=== PATIENT | male | born 1955 | race Caucasian/White ===

== ENCOUNTER 2017-12-14 06:13 | Inpatient (IN) ==
[~2017-12-14 06:13] MED LIST: ceFAZolin 1,000 MG, Sodium Chloride IRRigation 1,000 ML IR ONE
[2017-12-14] MEDS ORDERED: CeFAZolin Syr 2,000MG/20 ML 2,000 MG/20 ML SYRINGE IVPB ONE (06:37)
[2017-12-14] MEDS ORDERED: Albuterol 2.5 MG/3 ML NEBULIZER IH ONE (06:39)
[2017-12-14] MEDS ORDERED: Albuterol 2.5 MG/3 ML NEBULIZER ONE (06:43)
[2017-12-14] MEDS ORDERED: Ringers Solution, Lactated 1,000 ML IVC SCH (06:45)
[2017-12-14] MEDS ORDERED: Plasma-Lyte A (PH 7.4) 1,000 ML IVC SCH (06:45)
[2017-12-14] MEDS ORDERED: Insulin Human Regular 20 UNIT in 0.9 % Sodium Chloride 10 ML IV ONE (07:02)
[2017-12-14] MEDS ORDERED: Lidocaine -MPF 1% 2 ML VIAL ONE ×2 (07:02→07:20)
[2017-12-14] MEDS ORDERED: Acetaminophen IV 1,000 MG/100 ML INFUS..BTL IVPB ONE (07:05)
[2017-12-14] MEDS ORDERED: Famotidine 20 MG/2 ML VIAL IVP ONE (07:05)
[2017-12-14] MEDS ORDERED: *HR* FentaNYL (PF) 100 MCG/2 ML VIAL ONE ×2 (07:12→11:29)
[2017-12-14] MEDS ORDERED: *HR* Midazolam HCl 2 MG/2 ML VIAL ONE (07:12)
[2017-12-14] MEDS ORDERED: *HR* Propofol 200 MG/20 ML VIAL IVP ONE ×2 (07:12→11:28)
[2017-12-14] MEDS ORDERED: Heparin 1,000 UNITS/500 mL 1,000 ML ONE (07:15)
--- NOTE | 2017-12-14 07:26 | History & Physical Report ---
Date of Encounter: 12/14/17 Time of Encounter: 07:25 24 Hour HP Update - Instructions Instructions: If the History and Physical is less than 30 days old and was completed prior to A.M. admission and or procedure and has NOT been updated on calendar day of procedure please complete this update prior to performing procedure. - Update Patient reports changes in Medical Condition: No Changes in examination, assessment, or condition: No Changes in Medication: No Preop tests/diagnostics Reviewed: Yes Surgery Remains Indicated: Yes Consent for Planned Operative Procedure(s) Verified: Yes - Pre-Operative Checklist Preoperative Checklist Indicated: Yes Prophylactic Antibiotic Ordered: Yes Home Medications Include Beta Cynthia: Yes Beta Cynthia Taken Today (Day of Surgery): Yes Beta Cynthia Taken Yesterday (Day Prior to Surgery): Yes Is VTE Prophylaxis Indicated?: Yes
--- NOTE | 2017-12-14 07:29 | Anesthesia Evaluation PreOp ---
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: Denies Any Significant HX Other Medical History: Diabetes Type II (poorly controlled, accu check 328), GERD Anesthesia History: No Prior Anesthetic Complications Alcohol Use: none Drug use: none Medications and Allergies Isosorbide MONOnitrate (24 HR) [Imdur] 30 mg PO DAILY 05/26/15 [History] Lisinopril [Zestril] 20 mg PO DAILY 05/26/15 [History] Metformin HCl [Glucophage Xr] 750 mg PO BID 05/26/15 [History] Metoprolol [Lopressor] 25 mg PO BID 05/26/15 [History] Aspirin 81 mg PO DAILY #100 tab.chew 06/04/15 [Rx] Atorvastatin Calcium [Lipitor] 80 mg PO DAILY #60 tablet 06/04/15 [Rx] Cilostazol [Pletal] 100 mg PO BID #60 tablet 06/04/15 [Rx] Clopidogrel [Plavix] 75 mg PO DAILY #30 tablet 06/04/15 [Rx] HYDROcodone/Acet 5/325 mg [[place] 5-325 mg] 1 tab PO BID PRN 10/18/17 [History] Pantoprazole Sodium 40 mg PO DAILY 10/18/17 [History] Pentoxifylline [TRENtal] 400 mg PO BID 10/18/17 [History] Exenatide Microspheres [Bydureon Pen] 2 mg SQ TU 12/14/17 [History] Insulin Glargine,Hum.rec.anlog [Basaglar Kwikpen U-100] 20 - 25 unit SQ HS 12/14 [History] 3 Allergy/AdvReac Type Severity Reaction Status Date / Time No Known Allergies Allergy Verified 12/14/17 07:18 - Meds/Allergy Pre-op Review Medications Reviewed: Yes Allergies Reviewed: Yes Beta Blockers on Current Med List: Yes (Metoprolol today 0730) Anesthesia Results - Labs Laboratory Tests 11/24/17 11/24/17 11/24/17 10:16 10:16 10:16 Hgb 14.3 Hct 44.9 Plt Count 299 PT 10.5 INR 1.0 APTT 32.1 Sodium 134 L Potassium 4.0 BUN 14 Creatinine 0.71 - Imaging EKG: report reviewed (SR marked left axis deviation) Anesthesia Exam O2 Sat Height 1.85 m Height 1.85 m Height 1.85 m Weight 92.079 kg Weight 92.079 kg Weight 92.079 kg O2 Sat by Pulse Oximetry 98 O2 Sat by Pulse Oximetry 98 Vital Signs Temp Pulse Resp BP Pulse Ox 97.7 F 95 18 170/84 98 12/14/17 06:35 12/14/17 06:35 12/14/17 06:35 12/14/17 06:35 12/14/17 06:35 Height: 6'0 Weight: 203 lbs NPO (# of Hours): MN Pain Scale: 0 - HEENT Pupil (Motor): Pupils equal, EOMI Mallampati: III Teeth: Edentulous Oral Opening: Less than or equal to 3 - PROGRESS WORKER LOC: Oriented PROGRESS WORKER Motor: Normal RUE, Normal LUE, Normal RLE, Normal LLE, Normal Face PROGRESS WORKER Sensory: Normal: RUE, LUE, RLE, Face, Deficit: LLE (paresthesia) - Cardiac Rhythm: Regular Murmur: None JVD: No Carotid Bruit: No - Pulmonary Breath Sounds: bilateral Clear Respiratory Effort: Symmetrical Anesthesia Assess/Plan ASA Score: 3 Modified Apison Scale for Level of Consciousness: Cooperative, oriented, and tranquil Anesthetic Plan: General Monitoring Plan: Standard Monitors, A-Line Recovery Plan: PACU (Discussed GA, A-line, agrees to proceed)
[2017-12-14] MEDS ORDERED: *HR* Remifentanil 2 MG VIAL IVP ONE (07:39)
[2017-12-14] MEDS ORDERED: Lidocaine -MPF 2% 2 ML VIAL ONE ×2 (07:58→08:32)
[2017-12-14] MEDS ORDERED: Dexamethasone 4 MG/ML VIAL ONE (08:31)
[2017-12-14] MEDS ORDERED: Ondansetron 4 MG/2 ML VIAL ONE (08:31)
[2017-12-14] MEDS ORDERED: *HR* Phenylephrine 10 MG/ML VIAL ONE ×2 (08:33→12:12)
[2017-12-14] MEDS ORDERED: *HR* Promethazine 25 MG/ML VIAL IVP PRN (09:27)
[2017-12-14] MEDS ORDERED: *HR* OxyCODONE Immed Rel 5 MG TABLET PO PRN (09:27)
[2017-12-14] MEDS ORDERED: *HR* Labetalol 20 MG/4 ML SYRINGE IVP PRN (09:27)
[2017-12-14 09:35] LABS: ABG Base Excess 2 mEq/L (-2 to 3); ABG HCO3 28 mEq/L (21-27); ABG Oxygen Saturation 100 % (95-98); ABG PCO2 49 mmHg (35-45); ABG PH 7.36 pH Units (7.32-7.45); ABG PO2 184 mmHg (85-104); ABG TCO2 29 mEq/L (20-26)
[2017-12-14] MEDS ORDERED: *HR* Dextrose 50 % in Water (Syg) 50 ML SYRINGE ONE (10:03)
[2017-12-14] MEDS ORDERED: *HR* Heparin 5,000 UNIT/ML VIAL ONE ×2 (10:27→11:30)
[2017-12-14] MEDS ORDERED: *HR* Remifentanil 1 MG VIAL IVP ONE (10:48)
[2017-12-14] MEDS ORDERED: Neostigmine Methylsulfate 3 MG/3 ML SYRINGE ONE (12:39)
--- NOTE | 2017-12-14 12:55 | Operative Note ---
Date of procedure: 12/14/17 Pre-op diagnosis: PAD/claudication Post-op diagnosis: same Procedure: left femoral- above-knee popliteal bypass graft with reversed greater saphenous vein left common femoral artery endarterectomy with bovine pericardial patch angioplasty left above-knee popliteal endarterectomy with bovine pericardial patch angioplasty Complications: none Anesthesia: GETA Surgeon: Acosta Scott Co-Surgeon: Aleksey Martinez Was there an producer assistant present: No Estimated blood loss (cc): 100 Specimen: 0 Condition: stable Disposition: PACU Procedure in Detail: History Walker Crain is a 62-year-old white male who has known bilateral lower extremity vascular disease. He had undergone previous right lower extremity intervention that included iliac and popliteal and tibial artery angioplasties. He was identified as having significant left superficial femoral artery disease with occlusion. Contrast distally into the tibial system was inadequate. An attempt was made to perform an endovascular intervention but the right common femoral artery could not be successfully punctured and entered into the true lumen. Therefore the endovascular attempts were abandoned and the patient now comes to the operating room for direct revascularization of the right superficial femoral artery occlusion. Procedure After informed consent was obtained the patient was taken to the operating room. General endotracheal anesthesia was established under arterial line monitoring. The left lower extremity was sterilely prepped and draped. A timeout protocol was observed. A 2 team surgical approach was utilized for this procedure. This was done because of the need for complex intraoperative decision making as well as the need for simultaneous interventions. Incisions were made at the common femoral artery and at the above-knee popliteal artery. After the artery was dissected and controlled other incisions were made on the medial aspect of the thigh in order to expose and dissect the greater saphenous vein. The greater saphenous vein was found to be adequate in size and caliber. Therefore it was decided to proceed with a vein bypass graft. The vein was then harvested in a subsartorial tunnel was created. Heparin was administered no sub-5000 units intravenously. After 3 minutes later the vessels were clamped. As the vessels were identified as having significant intra-luminal plaque it was decided that endarterectomies with patch angioplasty would be necessary at both the proximal and distal location. Therefore a longitudinal arteriotomy was made at the common femoral artery and in the distal [id number] popliteal artery. A formal endarterectomy was performed bilaterally. The area was flushed with heparinized saline and then a bovine pericardial patch was fashioned. He was sewn with 6-0 Prolene at both locations. Then using an 11 blade knife the common femoral artery patch was opened. The vein was then anastomosed in an end to side fashion leaving the vein in a reverse configuration. After appropriate backbleeding and flushing the graft was then opened. Excellent pulsatile flow was achieved. The vein was then marked and the patient had the greater saphenous vein past through the tunnel into the [id number] popliteal location. An arteriotomy was then made over the patched above-knee popliteal artery. The End of the vein was anastomosed to the side of the popliteal artery. After appropriate backbleeding and flushing the clamps are removed and pulsatile flow was reestablished into the left calf. The patient tolerated this maneuver well. There were no periprocedural episodes of hypotension. Doppler signals were identified over the dorsalis pedis and posterior tibial artery at the ankle. The wounds were then irrigated and hemostasis achieved. The wound was then closed in layers using absorbable suture. Dry sterile dressings were applied. The patient was extubated in the operating room and taken to the recovery room in stable condition. There were no intraoperative complications. No specimens were submitted.
[2017-12-14] MEDS: MORPHINE SUL Oral CONC 10 MG/0.5 ML ORAL.SYG SL PRN ×2 (13:31→13:41)
[2017-12-14] MEDS ORDERED: *HR* Morphine 2 MG/ML SYRINGE IVP PRN (13:50)
[2017-12-14] MEDS ORDERED: Ondansetron 4 MG/2 ML VIAL IVP PRN (14:49)
[2017-12-14] MEDS ORDERED: *HR* HYDROcodone/Acet 5/325 mg TABLET PO PRN (14:49)
[2017-12-14] MEDS ORDERED: Naloxone 0.4 MG/ML INJ IVP PRN (14:49)
[2017-12-14] MEDS ORDERED: (Exenatide Microspheres [Bydureon Pen] 2 MG) SQ SCH (14:49)
--- NOTE | 2017-12-14 15:01 | Anesthesia Evaluation Post Op ---
Date of Encounter: 12/14/17 Time of Encounter: 15:00 - Vital Signs Vital Signs: Vital Signs/O2 Sat/Glucose, Most Current Temp Pulse Resp BP Pulse Ox 12/14/17 14:41 99.4 F 89 16 162/75 99 12/14/17 14:31 99.4 F 93 16 160/76 99 12/14/17 14:21 99.4 F 85 16 151/77 99 12/14/17 14:11 82 14 159/76 99 12/14/17 14:01 99.4 F 77 14 145/86 99 12/14/17 13:51 75 16 161/81 99 12/14/17 13:41 73 16 158/76 99 12/14/17 13:31 97.5 F L 68 16 156/74 99 12/14/17 13:21 73 16 196/99 100 12/14/17 13:11 85 18 183/97 100 12/14/17 13:01 97.6 F 66 20 176/85 100 - Lungs Lungs: Clear Ascult./Percussion - Airway Airway: Non-obstructed - Cardiovascular Regular Rate - Mental Status Mental Status: Alert & Oriented, Answers Appropriately - Pain Pain Scale: 1 - Nausea Vomiting Nausea Vomiting: Not Present - Hydration Hydration: Ice chips - Discharge PostOp Status: Transfer Patient to floor
[2017-12-14] MEDS ORDERED: *HR* HYDROmorphone (PF) 1 MG/ML SYRINGE IVP ONE (15:15)
[2017-12-14] MEDS ORDERED: ceFAZolin 2,000 MG in 0.9 % Sodium Chloride 100 ML IVPB SCH (16:00)
[2017-12-14] MEDS ORDERED: CeFAZolin Pre 2,000 MG/100 ML 2,000 MG/100 ML BAG IVPB SCH (16:00)
--- NOTE | 2017-12-14 16:42 | Operative Note ---
Date of procedure: 12/14/17 Pre-op diagnosis: Peripheral vascular disease with disabling claudication Post-op diagnosis: same Procedure: 1. Left femoral to above knee popliteal bypass with reversed left greater saphenous vein. 2. Left popliteal endarterctomy with bovine pericardial patch angioplasty. 3. Left femoral endarerectomy with bovine pericardial patch angioplasty. Complications: None Anesthesia: ESTELITA Surgeon: Aleksey Martinez Co-Surgeon: Acosta Scott Was there an pharmacy affairs assistant present: No Estimated blood loss (cc): 100 Specimen: none Condition: stable Disposition: PACU Procedure in Detail: Indications: The patient is a 62 year old male with a history of diabetes, hypertension, coronary artery disease tobacco abuse and peripheral vascular disease with disabling claudication. He was found to have a left superficial femoral artery occlusion. Surgery was recommended to reduce his symptoms. Procedure: The patient was identified in the preoperative area. The risks, benefits, and alternatives of the procedure were discussed. All questions were answered. The patient was taken to the operating room and placed in supine position on the operating room table. After the induction of general endotracheal anesthesia, he was cleaned and draped in normal sterile fashion. A two surgeon approach was utilized for this procedure in order to minimize anesthetic time and the risks for complications due to the patients comorbid conditions. In addition, a two surgeon approach was used for intraoperative decision making. An oblique incision was made over the left groin sharply. Hemostasis was obtained with electrocautery. Through a process of blunt, sharp, and electrocautery dissection, the left femoral vessels were dissected circumferentially and surrounded with vessel loops. A longitudinal incision was made on the left medial distal thigh sharply. Hemostasis was obtained with electrocautery. Through a process of blunt, sharp, and electrocautery dissection, the left above-knee popliteal artery was dissected proximally and distally and surrounded with vessel loops. Multiple skin incisions were made along the thigh between the two incisions along the saphenous vein. The saphenous vein was completely mobilized with blunt, sharp, and electrocautery dissection. The side branches were clamped, divided, tied off with 3-0 and 4-0 silk sutures. Distally, the vein was mobilized in the calf, clamped, divided, tied off with silk suture ligature and then further completely mobilized through the incisions. The vein was flushed and noted to be adequate in size and consistency for bypass. A tunnel was created between the femoral and popliteal artery incisions. The vein was reversed. Tension was applied to the femoral vessel loops. An arteriotomy was made in the common femoral artery. At this time, it was noted that nearly occlusive plaque extended from the common femoral artery through the deep femoral artery. The superficial femoral artery was chronically occluded. Using a dental freer, a left common and deep femoral artery endarterectomy was performed. Upon removal of the plaque, no elevated flaps were noted. Release of the vessel loops revealed pulsatile antegrade flow and signifcant retrograde flow through the deep femoral artery. The loops were then applied to tension. A bovine pericardial patch was cut to fit the defect and sutured in place with a running 6-0 prolene. A longitudinal incision was made in the bovine pericardial patch. The vein graft was cut to fit the defect. The graft was anastamosed with a running 6-0 Prolene. After completing the closure, the vessels were reperfused and pulsatile flow was noted through the vein. The vein was marked without torsion and then it was tunneled between the two incisions. After tunneling, the vein was unclamped and was noted to have strong pulsatile flow once again. It was re -clamped. The popliteal vessels were occluded and a longitudinal arteriotomy was made in the popliteal artery. A stenotic, flow-limiting plaque was identified. Using a dental freer, a left popliteal artery endarterectomy was performed. Upon removal of the plaque, no elevated flaps were noted. Release of the vessel loops revealed retrograde flow through the popliteal artery. The loops were then applied to tension. A bovine pericardial patch was cut to fit the defect and sutured in place with a running 6-0 prolene. A longitudinal incision was then made in the bovine pericardial patch. The distal end of the vein graft was sutured in place with a running 6-0 Prolene,. The distal arterial anastomosis was completed and prior to completing the closure, the popliteal vessels were flushed and reoccluded. Heparinized saline was infused into the lumen. The anastamosis was tied and then flow was restored. Polyphasic signals were noted distal to the distal anastomosis as well as at the posterior tibial artery. Wounds were irrigated with antibiotic-containing saline. Meticulous hemostasis was obtained throughout the wound with electrocautery. Wounds were reapproximated with layers of 2-0 and 3-0 Vicryl. Skin was reapproximated with 4-0 Vicryl. Sterile dressing was applied. The patient was extubated and taken to recovery room in stable condition.
[2017-12-14] MEDS: *HR* OxyCODONE Immed Rel 5 MG TABLET PO PRN ×2 (16:59→22:10)
[2017-12-14] MEDS: ceFAZolin 2,000 MG in 0.9 % Sodium Chloride 100 ML IVPB SCH (17:34)
[2017-12-14] MEDS: *HR* HYDROcodone/Acet 5/325 mg TABLET PO PRN (20:00)
[2017-12-14] MEDS: *HR* Metformin 500 MG TABLET PO SCH (20:00)
[2017-12-14] MEDS ORDERED: NON-FORMULARY MEDICATION 1 EACH EACH (Insulin Glargine,Hum.Rec.Anlog [Basaglar Kwikpen U-1 SQ SCH (21:00)
[2017-12-14] MEDS ORDERED: Insulin DETEMIR 100 UNIT/ML X5UNITS SQ SCH (21:00)
[2017-12-15] MEDS: ceFAZolin 2,000 MG in 0.9 % Sodium Chloride 100 ML IVPB SCH ×2 (00:32→08:55)
[2017-12-15] MEDS: *HR* OxyCODONE Immed Rel 5 MG TABLET PO PRN ×3 (03:18→15:51)
[2017-12-15] MEDS: *HR* HYDROcodone/Acet 5/325 mg TABLET PO PRN (04:32)
[2017-12-15 04:43] LABS: Basophils % 0.4 %; Eosinophils # 0.1 K/mcL (0.0-0.6); Eosinophils % 1.2 %; Hematocrit 37.2 % (37.5-50.1); Hemoglobin 12.6 g/dL (12.9-16.9); Immature Granulocytes % 0.2 % (0-4); Mean Corpuscular HGB Conc 33.9 g/dL (31.6-35.5); Mean Corpuscular Hemoglobin 30.7 pg (28.0-33.3); Mean Corpuscular Volume 90.5 fL (83.0-100.0); Monocytes # 0.8 K/mcL (0.0-1.3); Monocytes % 9.4 %; Neutrophils # 5.4 K/mcL (1.6-8.9); Platelet Count 254 K/mcL (140-400); Red Blood Count 4.11 M/mcL (4.19-5.50); Red Cell Distribution Width 13.7 % (11.5-14.5); Segmented Neutrophils % 64.8 %
[2017-12-15 05:00] LABS: BUN/Creatinine Ratio 14 (6-26); Blood Urea Nitrogen 10 mg/dL (8-23); Calcium 8.8 mg/dL (8.6-10.3); Carbon Dioxide 29 mEq/L (23-29); Chloride 99 mEq/L (98-107); Glucose 218 mg/dL (70-105); Osmolality,Calculated 286 (280-300); Potassium 3.9 mEq/L (3.5-5.1); Sodium 135 mEq/L (136-145); eGFR For African Americans > 60 (> 60); eGFR For Non-African Americans > 60 (> 60)
[2017-12-15] MEDS ORDERED: Isosorbide MONOnitrate (24 HR) 30 MG TAB.ER.24H PO SCH (09:00)
[2017-12-15] MEDS ORDERED: Lisinopril 20 MG TABLET PO SCH (09:00)
[2017-12-15] MEDS ORDERED: Aspirin 81 MG TAB.CHEW PO SCH (09:00)
[2017-12-15] MEDS: *HR* Metformin 500 MG TABLET PO SCH (09:08)
[2017-12-15 11:02] VITALS: BP 128/65
--- NOTE | 2017-12-15 13:18 | Discharge Summary ---
Orders not resulted at time of discharge: Pending orders 12/13/17 Red Blood Cells [BBK] Routine Date of Encounter: 12/15/17 Time of Encounter: 13:16 - Discharge Diagnosis (1) Hypertension Priority: Secondary Status: Chronic Comments: Patient under medical treatment for chronic hypertension Qualifiers: Hypertension type: essential hypertension Qualified Code(s): I10 - Essential (primary) hypertension (2) Tobacco abuse Priority: Secondary Status: Chronic Comments: Patient has chronic history of tobacco abuse (3) Peripheral vascular disease Priority: Primary Status: Acute Comments: Patient has bilateral lower extremity vascular occlusive disease. Status post endovascular intervention for the right side. He is status post now left lower extremity bypass grafting and endarterectomies. - Hospital Course Hospital course: Mr. Crain is a 62 year old male With significant bilateral lower extremity vascular occlusive disease. He is status post successful right lower extremity endovascular intervention. The patient required open surgery for the left side. He underwent a left femoral to above-knee popliteal artery bypass graft with endarterectomy and patch angioplasty of the common femoral and popliteal arteries. Patient had an excellent response with a warm left foot. He had excellent multiphasic Doppler signals at the ankle. The patient was felt fit for transfer to the rehabilitation center for short-term inpatient rehabilitation on postoperative day #1. - Time Spent with Patient Total time spent providing and/or coordinating discharge services: - Discharge Medications Prescriptions: HYDROcodone/Acet 5/325 mg [[place] 5-325 mg] 1 tab PO Q6HR PRN 10 Days #20 tablet PRN Reason: Moderate Pain Home Medications: Isosorbide MONOnitrate (24 HR) [Imdur] 30 mg PO DAILY 05/26/15 [History] Lisinopril [Zestril] 20 mg PO DAILY 05/26/15 [History] Metformin HCl [Glucophage Xr] 750 mg PO BID 05/26/15 [History] Metoprolol [Lopressor] 25 mg PO BID 05/26/15 [History] Aspirin 81 mg PO DAILY #100 tab.chew 06/04/15 [Rx] Atorvastatin Calcium [Lipitor] 80 mg PO DAILY #60 tablet 06/04/15 [Rx] Cilostazol [Pletal] 100 mg PO BID #60 tablet 06/04/15 [Rx] Clopidogrel [Plavix] 75 mg PO DAILY #30 tablet 06/04/15 [Rx] HYDROcodone/Acet 5/325 mg [[place] 5-325 mg] 1 tab PO BID PRN 10/18/17 [History] Pantoprazole Sodium 40 mg PO DAILY 10/18/17 [History] Pentoxifylline [TRENtal] 400 mg PO BID 10/18/17 [History] Exenatide Microspheres [Bydureon Pen] 2 mg SQ TU 12/14/17 [History] Insulin Glargine,Hum.rec.anlog [Basaglar Kwikpen U-100] 20 - 25 unit SQ HS 12/14 [History] HYDROcodone/Acet 5/325 mg [[place] 5-325 mg] 1 tab PO Q6HR PRN 10 Days #20 tablet 12/15/17 [Rx] Allergies/Adverse Reactions: 3 Allergy/AdvReac Type Severity Reaction Status Date / Time No Known Allergies Allergy Verified 12/14/17 07:18 Date of admission: 12/14/17 14:45 Primary care physician: Art Gilbert MD Consults: 12/15/17 08:47 Consult to Physical Therapy [CONS] Routine Comment: Evaluate, develop and implement POC Reason for Consult: ambulation assistance Does patient have active BEDREST order?: No Is patient medically & hemodynamically stable?: Yes Patient assessed for mobility or mobilized this visit?: Yes 12/15/17 09:33 Consult to Occupational Therapy [CONS] Routine Comment: Evaluate, develop and implement POC Reason for Consult: d/c planning Does patient have active BEDREST order?: No Is patient medically & hemodynamically stable?: Yes Patient assessed for mobility or mobilized this visit?: No Procedure(s) Performed: Left femoral-popliteal bypass graft with reverse greater saphenous vein, left common femoral artery endarterectomy with bovine pericardial patch angioplasty, and left popliteal artery endarterectomy with bovine pericardial patch angioplasty Discharging clinician: Acosta Scott Anticipated date of discharge: 12/15/17 Exam Vital Signs, Last 4 Hours Temp Pulse Resp BP Pulse Ox 12/15/17 11:01 97.7 F 98 20 128/65 96 General: Present: Conversant, No Apparent Distress HEENT: Present: Atraumatic Cardiac: Present: Reg Rate and Rhythm Neuro: Present: Alert and responsive, No focal deficits noted Abdomen: Present: Soft Vascular: Present: Normal capillary refill, Color/Temperature (normal), Surgical incisions (The patient's dressings are intact on left lower extremity) , Other (Multiphasic Doppler signals at the left ankle) Skin: Present: No rashes noted on visualized skin - Patient Status Disposition: Transfer Inpatient Rehab Fac Condition: Good Functional capacity at discharge: uses cane/walker Overall status at discharge: patient is progressing back to baseline - Discharge Instructions Follow Up With: Art Gilbert MD [Primary Care Provider] - 12/22/17 1:25 pm Acosta Scott MD [Partnered Physician] - 01/05/18 1:00 pm Additional Instructions: Remove left lower extremity surgical dressings tomorrow. Harden redress the surgical sites as tolerated. No lifting greater than 10 pounds. patient to resume his usual home medications. Patient encouraged ambulate as much as possible. Patient is to keep left lower extremity elevated while sitting. Patient to take and use incentive spirometer 10 times an hour while awake for the next 2 weeks. - Diet and Activity Activity: as per physical therapy Diet: diabetic diet - VTE Documentation of Mechanical Device: Intermittent pneumatic compression device
--- NOTE | 2017-12-15 13:26 | Physician Discharge Referral ---
ExtendedCare Referral Info Transfer To: Rehab Provider in Charge: Dr. Scott Provider in Charge after Transfer: PCP Institutional Level of Care: Skilled - Diagnosis (1) Hypertension Priority: Secondary Status: Chronic (2) Tobacco abuse Priority: Secondary Status: Chronic (3) Peripheral vascular disease Priority: Primary Status: Acute Prognosis: Good Aware of Diagnosis: Patient, Family Aware of Prognosis: Patient, Family - Transfer Medications Prescriptions: HYDROcodone/Acet 5/325 mg [[place] 5-325 mg] 1 tab PO Q6HR PRN 10 Days #20 tablet PRN Reason: Moderate Pain Home Medications: Isosorbide MONOnitrate (24 HR) [Imdur] 30 mg PO DAILY 05/26/15 [History] Lisinopril [Zestril] 20 mg PO DAILY 05/26/15 [History] Metformin HCl [Glucophage Xr] 750 mg PO BID 05/26/15 [History] Metoprolol [Lopressor] 25 mg PO BID 05/26/15 [History] Aspirin 81 mg PO DAILY #100 tab.chew 06/04/15 [Rx] Atorvastatin Calcium [Lipitor] 80 mg PO DAILY #60 tablet 06/04/15 [Rx] Cilostazol [Pletal] 100 mg PO BID #60 tablet 06/04/15 [Rx] Clopidogrel [Plavix] 75 mg PO DAILY #30 tablet 06/04/15 [Rx] HYDROcodone/Acet 5/325 mg [[place] 5-325 mg] 1 tab PO BID PRN 10/18/17 [History] Pantoprazole Sodium 40 mg PO DAILY 10/18/17 [History] Pentoxifylline [TRENtal] 400 mg PO BID 10/18/17 [History] Exenatide Microspheres [Bydureon Pen] 2 mg SQ TU 12/14/17 [History] Insulin Glargine,Hum.rec.anlog [Basaglar Kwikpen U-100] 20 - 25 unit SQ HS 12/14 [History] HYDROcodone/Acet 5/325 mg [[place] 5-325 mg] 1 tab PO Q6HR PRN 10 Days #20 tablet 12/15/17 [Rx] Allergies/Adverse Reactions: 3 Allergy/AdvReac Type Severity Reaction Status Date / Time No Known Allergies Allergy Verified 12/14/17 07:18 - Respiratory Orders Smoking Cessation: Smoking cessation has been advised. For more information, call the [place] Tobacco Quit Line at 1-298-EMTY-NOW. - Ancillary Orders May use pressure relief devices daily prn, May go on CALDERON w/family/respon alliance party w /meds at nurse discretion PRN - Advance Directives Code Status: Full Code - Mobility Orders Ambulate - Rehabiliation Orders Rehab Potential: Good Rehab Orders: Evaluation for Physical Therapy, Evaluation for Occupational Therapy - Treatments Skin tear care topically daily PRN per policy - Diet Orders Regular (removed left lower extremity surgical dresings tomorrow. May redress surgical sites as tolerated) CERTIFICATION: I certify that the transfer of the above named patient to an Extended Care Facility is necessary for the continuing treatment of the diagnosis listed. The above information is true and accurate reflection of patient's current condition. Confidential - Redisclosure prohibited without a patient's written consent.
== END 2017-12-15 16:30 | DRG 254 ==
LOC: SAMDAY 06:13 → 2NNU 14:45
PROVIDERS: ADMIT Surgery Vascular Surgery; ATTEND Surgery Vascular Surgery

== ENCOUNTER 2020-08-26 09:01 | Inpatient (IN) ==
[2020-08-26] MEDS ORDERED: Vancomycin 1,250 MG/262.5 ML IV.SOLN IVPB ONE (09:26)
[2020-08-26] MEDS ORDERED: Piperacillin/Tazobactam 3.375 GM in Water for inj. (sterile) 20 ML IVP ONE (09:26)
[2020-08-26] MEDS ORDERED: Ondansetron 4 MG/2 ML VIAL IVP ONE (09:28)
[2020-08-26] MEDS ORDERED: Morphine Sulfate 2 MG/ML SYRINGE IVP ONE (09:28)
[2020-08-26 10:03] LABS: Basophils # 0.1 K/mcL (0.0-0.2); Basophils % 0.4 %; Eosinophils # 0.1 K/mcL (0.0-0.6); Eosinophils % 1.1 %; Hematocrit 46.6 % (37.5-50.1); Immature Granulocytes % 0.2 % (0-4); Lymphocytes % 23.7 %; Mean Corpuscular HGB Conc 34.3 g/dL (31.6-35.5); Mean Corpuscular Hemoglobin 30.2 pg (28.0-33.3); Mean Corpuscular Volume 88.1 fL (83.0-100.0); Mean Platelet Volume 9.2 fL (9.4-12.4); Monocytes # 0.7 K/mcL (0.0-1.3); Monocytes % 5.6 %; Neutrophils # 8.8 K/mcL (1.6-8.9); Platelet Count 267 K/mcL (140-400); Red Blood Count 5.29 M/mcL (4.19-5.50); Red Cell Distribution Width 13.2 % (11.5-14.5); White Blood Count 12.8 K/mcL (4.3-11.1)
[2020-08-26 10:11] LABS: INR 1.1; Prothrombin Time 13.1 Seconds (9.4-12.1)
[2020-08-26 10:14] LABS: Activated Partial Thrombo Time 29.5 Seconds (26.0-36.0)
[2020-08-26 10:29] LABS: Alanine Aminotransferase 32 Units/L (7-52); Albumin 4.6 g/dL (3.5-5.7); Albumin/Globulin Ratio 1.5 (1.1-2.2); Alkaline Phosphatase 98 Units/L (34-104); Aspartate Amino Transferase 18 Units/L (13-39); BUN/Creatinine Ratio 23 (6-26); Bilirubin,Direct 0.3 mg/dL (0.0-0.2); Bilirubin,Indirect 1.2 mg/dL (0.0-1.0); Bilirubin,Total 1.5 mg/dL (0.3-1.0); Blood Urea Nitrogen 19 mg/dL (8-23); Calcium 9.4 mg/dL (8.6-10.3); Carbon Dioxide 26 mEq/L (23-29); Chloride 94 mEq/L (98-107); Glucose 333 mg/dL (70-105); Osmolality,Calculated 289 (280-300); Potassium 4.4 mEq/L (3.5-5.1); Sodium 132 mEq/L (136-145); Total Protein 7.6 g/dL (6.4-8.9); eGFR For African Americans > 60 (> 60); eGFR For Non-African Americans > 60 (> 60)
[2020-08-26] MEDS ORDERED: *HR* HYDROcodone/Acet 5/325 mg TABLET PO ONE (11:30)
[2020-08-26] MEDS ORDERED: D5% in Water 1,000 ML IVC PRN (11:31)
[2020-08-26] MEDS ORDERED: *HR* Dextrose 50 % in Water (Vial) 50 ML VIAL IVP PRN (11:31)
[2020-08-26] MEDS ORDERED: Naloxone 0.4 MG/ML INJ IVP PRN (11:31)
[2020-08-26] MEDS ORDERED: Dextrose Gel 15 GM/37.5 ML TUBE PO PRN ×2 (11:31)
[2020-08-26] MEDS ORDERED: Tdap (Boostrix) Vaccine 0.5 ML SYRINGE IM ONE (11:35)
[2020-08-26] MEDS: *HR* Heparin 5,000 UNIT/ML VIAL SQ SCH ×2 (14:38→21:51)
[2020-08-26] MEDS: Insulin LISPRO 300 UNITS/3 ML VIAL SUBQ SCH ×3 (14:39→21:51)
[2020-08-26] MEDS: *HR* OxyCODONE Immed Rel 5 MG TABLET PO PRN ×2 (14:40→21:51)
[2020-08-26] MEDS: Piperacillin/Tazobactam 3.375 GM in 0.9 % Sodium Chloride Mini Bag 100 ML IVPB SCH ×2 (15:40→23:59)
[2020-08-26] MEDS: Vancomycin 1,250 MG/262.5 ML IV.SOLN IVPB SCH (21:52)
[2020-08-27] MEDS: *HR* OxyCODONE Immed Rel 5 MG TABLET PO PRN ×3 (03:59→20:24)
[2020-08-27] MEDS: *HR* Heparin 5,000 UNIT/ML VIAL SQ SCH ×3 (05:16→22:55)
[2020-08-27 07:06] LABS: Basophils # 0.1 K/mcL (0.0-0.2); Basophils % 0.5 %; Eosinophils # 0.2 K/mcL (0.0-0.6); Eosinophils % 2.3 %; Hemoglobin 14.6 g/dL (12.9-16.9); Immature Granulocytes % 0.2 % (0-4); Lymphocytes # 3.2 K/mcL (0.6-4.6); Lymphocytes % 34.5 %; Mean Corpuscular Hemoglobin 30.2 pg (28.0-33.3); Mean Corpuscular Volume 88.8 fL (83.0-100.0); Mean Platelet Volume 9.2 fL (9.4-12.4); Monocytes # 0.6 K/mcL (0.0-1.3); Monocytes % 6.3 %; Neutrophils # 5.1 K/mcL (1.6-8.9); Platelet Count 225 K/mcL (140-400); Red Blood Count 4.84 M/mcL (4.19-5.50); Red Cell Distribution Width 13.2 % (11.5-14.5); Segmented Neutrophils % 56.2 %; White Blood Count 9.1 K/mcL (4.3-11.1)
[2020-08-27 07:29] LABS: BUN/Creatinine Ratio 18 (6-26); Blood Urea Nitrogen 16 mg/dL (8-23); Calcium 8.5 mg/dL (8.6-10.3); Carbon Dioxide 24 mEq/L (23-29); Chloride 98 mEq/L (98-107); Glucose 229 mg/dL (70-105); Magnesium 1.8 mg/dL (1.6-2.6); Osmolality,Calculated 282 (280-300); Phosphorous 3.8 mg/dL (2.7-4.5); Potassium 4.7 mEq/L (3.5-5.1); Sodium 132 mEq/L (136-145); eGFR For African Americans > 60 (> 60); eGFR For Non-African Americans > 60 (> 60)
[2020-08-27] MEDS: Piperacillin/Tazobactam 3.375 GM in 0.9 % Sodium Chloride Mini Bag 100 ML IVPB SCH ×2 (07:55→16:24)
[2020-08-27] MEDS: Insulin LISPRO 300 UNITS/3 ML VIAL SUBQ SCH ×4 (07:55→20:27)
[2020-08-27] MEDS ORDERED: Aspirin 81 MG TAB.CHEW PO SCH (09:00)
[2020-08-27] MEDS: Vancomycin 1,250 MG/262.5 ML IV.SOLN IVPB SCH ×2 (09:52→22:55)
[2020-08-27] MEDS ORDERED: *HR* Heparin 10,000 UNIT/10 ML VIAL ONE (12:35)
[2020-08-27] MEDS ORDERED: 0.9 % Sodium Chloride 2,000 ML ONE (12:36)
[2020-08-27] MEDS ORDERED: *HR* Midazolam HCl 5 MG/5 ML VIAL IVP ONE (12:54)
[2020-08-27] MEDS ORDERED: *HR* FentaNYL (PF) 250 MCG/5 ML VIAL ONE (12:54)
[2020-08-27 13:04] LABS: C-Reactive Protein 6 mg/L (Less than 10)
[2020-08-27] MEDS ORDERED: Acetaminophen 325 MG TABLET PO PRN (14:30)
[2020-08-27] MEDS ORDERED: Isovue-370 500 ML BOTTLE IVP ONE (14:31)
[2020-08-27] MEDS: Insulin DETEMIR 100 UNIT/ML X5UNITS SUBQ SCH (23:43)
[2020-08-28] MEDS: Piperacillin/Tazobactam 3.375 GM in 0.9 % Sodium Chloride Mini Bag 100 ML IVPB SCH ×3 (00:01→18:10)
[2020-08-28] MEDS: *HR* OxyCODONE Immed Rel 5 MG TABLET PO PRN ×3 (03:40→18:10)
[2020-08-28 04:34] LABS: Hematocrit 43.7 % (37.5-50.1); Hemoglobin 14.2 g/dL (12.9-16.9); Mean Corpuscular HGB Conc 32.5 g/dL (31.6-35.5); Mean Corpuscular Hemoglobin 29.2 pg (28.0-33.3); Mean Corpuscular Volume 89.7 fL (83.0-100.0); Platelet Count 214 K/mcL (140-400); Red Blood Count 4.87 M/mcL (4.19-5.50); Red Cell Distribution Width 13.2 % (11.5-14.5); White Blood Count 7.5 K/mcL (4.3-11.1)
[2020-08-28 04:49] LABS: Alanine Aminotransferase 20 Units/L (7-52); Albumin 3.6 g/dL (3.5-5.7); Albumin/Globulin Ratio 1.4 (1.1-2.2); Alkaline Phosphatase 71 Units/L (34-104); Aspartate Amino Transferase 14 Units/L (13-39); BUN/Creatinine Ratio 20 (6-26); Bilirubin,Total 0.7 mg/dL (0.3-1.0); Blood Urea Nitrogen 13 mg/dL (8-23); Calcium 8.2 mg/dL (8.6-10.3); Carbon Dioxide 25 mEq/L (23-29); Chloride 104 mEq/L (98-107); Globulin 2.6 g/dL (2.4-3.5); Glucose 163 mg/dL (70-105); Osmolality,Calculated 284 (280-300); Potassium 4.3 mEq/L (3.5-5.1); Sodium 135 mEq/L (136-145); Total Protein 6.2 g/dL (6.4-8.9); eGFR For African Americans > 60 (> 60); eGFR For Non-African Americans > 60 (> 60)
[2020-08-28] MEDS: *HR* Heparin 5,000 UNIT/ML VIAL SQ SCH ×3 (05:30→21:06)
[2020-08-28] MEDS: Vancomycin 1,500 MG/265 ML IV.SOLN IVPB SCH ×2 (10:44→21:05)
[2020-08-28] MEDS: Aspirin 81 MG TAB.CHEW PO SCH (10:44)
[2020-08-28] MEDS: Insulin LISPRO 300 UNITS/3 ML VIAL SUBQ SCH ×4 (10:45→20:36)
[2020-08-28] MEDS ORDERED: ceFAZolin 2,000 MG in 0.9 % Sodium Chloride 100 ML IVPB ONE (13:20)
[2020-08-28 15:36] LABS: Adenovirus Not Detected (Not Detect); Coronavirus 229E Not Detected (Not Detect); Coronavirus HKU1 Not Detected (Not Detect); Coronavirus NL63 Not Detected (Not Detect); Coronavirus OC43 Not Detected (Not Detect)
[2020-08-28 15:37] LABS: Bordetella Pertussis Not Detected (Not Detect); Chlamydophila pneumoniae Not Detected (Not Detect); Human Metapneumovirus Not Detected (Not Detect); Human Rhinovirus/Enterovirus Not Detected (Not Detect); Influenza A Subtype 2009 H1 Not Detected (Not Detect); Influenza B Not Detected (Not Detect); Mycoplasma pneumoniae Not Detected (Not Detect); Parainfluenza Virus 1 Not Detected (Not Detect); Parainfluenza Virus 2 Not Detected (Not Detect); Parainfluenza Virus 3 Not Detected (Not Detect); Parainfluenza Virus 4 Not Detected (Not Detect); Respiratory Syncytial Virus Not Detected (Not Detect); SARS-CoV-2 Not Detected (Not Detect)
[2020-08-28] MEDS: Insulin DETEMIR 100 UNIT/ML X5UNITS SUBQ SCH (21:05)
[2020-08-29] MEDS: *HR* OxyCODONE Immed Rel 5 MG TABLET PO PRN ×3 (01:45→21:57)
[2020-08-29] MEDS: Piperacillin/Tazobactam 3.375 GM in 0.9 % Sodium Chloride Mini Bag 100 ML IVPB SCH ×3 (03:52→16:08)
[2020-08-29] MEDS: *HR* Heparin 5,000 UNIT/ML VIAL SQ SCH ×2 (05:08→20:52)
[2020-08-29] MEDS ORDERED: EPHEDrine 50 MG/ML VIAL ONE (07:17)
[2020-08-29] MEDS ORDERED: Ondansetron 4 MG/2 ML VIAL IVP PRN (07:22)
[2020-08-29] MEDS ORDERED: *HR* Labetalol 20 MG/4 ML SYRINGE IVP PRN (07:22)
[2020-08-29] MEDS ORDERED: *HR* HYDROmorphone PF 0.5 MG/0.5 ML SYRINGE IVP PRN (07:22)
[2020-08-29] MEDS ORDERED: *HR* OxyCODONE Immed Rel 5 MG TABLET PO PRN (07:22)
[2020-08-29] MEDS ORDERED: Ringers Solution, Lactated 1,000 ML IVC SCH (07:30)
[2020-08-29] MEDS: Insulin LISPRO 300 UNITS/3 ML VIAL SUBQ SCH ×3 (08:24→21:00)
[2020-08-29] MEDS: Aspirin 81 MG TAB.CHEW PO SCH (08:24)
[2020-08-29] MEDS ORDERED: *HR* Succinylcholine 200 MG/10 ML VIAL IVP ONE (08:32)
[2020-08-29] MEDS ORDERED: *HR* Rocuronium Bromide 50 MG/5 ML VIAL ONE (08:32)
[2020-08-29] MEDS ORDERED: *HR* Propofol 200 MG/20 ML VIAL IVP ONE (08:33)
[2020-08-29] MEDS ORDERED: *HR* FentaNYL (PF) 100 MCG/2 ML VIAL ONE ×2 (08:33→09:28)
[2020-08-29] MEDS ORDERED: Ondansetron 4 MG/2 ML VIAL ONE (08:33)
[2020-08-29] MEDS ORDERED: Dexamethasone 4 MG/ML VIAL ONE (08:33)
[2020-08-29] MEDS ORDERED: *HR* Midazolam HCl 2 MG/2 ML VIAL ONE ×2 (08:33→09:31)
[2020-08-29] MEDS ORDERED: Lidocaine HCL 4 ML Topical Solution (Laryng-O-Jet Kit Sterile Pak) TP ONE (08:34)
[2020-08-29] MEDS ORDERED: Heparin 1,000 UNITS/500 mL 500 ML ONE ×2 (08:34→09:16)
[2020-08-29] MEDS ORDERED: *HR* Phenylephrine 10 MG/ML VIAL ONE (08:34)
[2020-08-29] MEDS ORDERED: Heparin 1,000 UNITS/500 mL 1,000 ML ONE (08:38)
[2020-08-29] MEDS ORDERED: Isovue-300 50ML VIAL ONE ×2 (09:09→09:16)
[2020-08-29] MEDS ORDERED: ceFAZolin 1,000 MG, Sodium Chloride IRRigation 1,000 ML IR ONE (09:15)
[2020-08-29 09:54] LABS: ABG Base Excess 0 mEq/L (-2 to 3); ABG Chloride 105 mEq/L (98-107); ABG Glucose 87 mg/dL (60-95); ABG HCO3 26 mEq/L (21-27); ABG Ionized Calcium 1.08 mmol/L (1.15-1.35); ABG Oxygen Saturation 100 % (95-98); ABG PCO2 48 mmHg (35-45); ABG PH 7.34 pH Units (7.32-7.45); ABG PO2 329 mmHg (85-104); ABG TCO2 28 mEq/L (20-26)
[2020-08-29] MEDS: Vancomycin 1,500 MG/265 ML IV.SOLN IVPB SCH ×2 (10:20→21:01)
[2020-08-29] MEDS ORDERED: *HR* Heparin 5,000 UNIT/ML VIAL ONE ×2 (11:40→12:42)
[2020-08-29] MEDS ORDERED: *HR* HYDROMORPHONE 2 MG/ML VIAL ONE (14:00)
[2020-08-29] MEDS ORDERED: *HR* Dextrose 50 % in Water (Vial) 50 ML VIAL IVP PRN (15:46)
[2020-08-29] MEDS ORDERED: Dextrose Gel 15 GM/37.5 ML TUBE PO PRN ×2 (15:46)
[2020-08-29] MEDS ORDERED: Naloxone 0.4 MG/ML INJ IVP PRN ×2 (15:46)
[2020-08-29] MEDS ORDERED: D5% in Water 1,000 ML IVC PRN (15:46)
[2020-08-29] MEDS ORDERED: Acetaminophen 325 MG TABLET PO PRN (15:46)
[2020-08-29] MEDS: Ringers Solution, Lactated 1,000 ML IVC SCH (16:18)
[2020-08-29] MEDS ORDERED: Insulin DETEMIR 100 UNIT/ML X5UNITS SUBQ SCH (21:00)
[2020-08-30] MEDS: Piperacillin/Tazobactam 3.375 GM in 0.9 % Sodium Chloride Mini Bag 100 ML IVPB SCH ×2 (00:05→07:54)
[2020-08-30 04:46] LABS: Basophils % 0.3 %; Eosinophils % 0.5 %; Hematocrit 34.2 % (37.5-50.1); Immature Granulocytes % 0.3 % (0-4); Lymphocytes % 27.6 %; Mean Corpuscular HGB Conc 33.3 g/dL (31.6-35.5); Mean Corpuscular Hemoglobin 30.2 pg (28.0-33.3); Mean Corpuscular Volume 90.7 fL (83.0-100.0); Mean Platelet Volume 9.4 fL (9.4-12.4); Monocytes # 0.6 K/mcL (0.0-1.3); Monocytes % 7.8 %; Neutrophils # 4.7 K/mcL (1.6-8.9); Platelet Count 202 K/mcL (140-400); Red Blood Count 3.77 M/mcL (4.19-5.50); Red Cell Distribution Width 13.1 % (11.5-14.5); Segmented Neutrophils % 63.5 %; White Blood Count 7.3 K/mcL (4.3-11.1)
[2020-08-30 04:48] LABS: Hemoglobin 11.4 g/dL (12.9-16.9)
[2020-08-30 05:04] LABS: BUN/Creatinine Ratio 15 (6-26); Blood Urea Nitrogen 11 mg/dL (8-23); Calcium 7.6 mg/dL (8.6-10.3); Carbon Dioxide 25 mEq/L (23-29); Chloride 103 mEq/L (98-107); Glucose 270 mg/dL (70-105); Osmolality,Calculated 287 (280-300); Potassium 4.1 mEq/L (3.5-5.1); Sodium 134 mEq/L (136-145); eGFR For African Americans > 60 (> 60); eGFR For Non-African Americans > 60 (> 60)
[2020-08-30] MEDS: *HR* Heparin 5,000 UNIT/ML VIAL SQ SCH ×4 (06:16→20:37)
[2020-08-30] MEDS: Aspirin 81 MG TAB.CHEW PO SCH (07:52)
[2020-08-30] MEDS: Insulin LISPRO 300 UNITS/3 ML VIAL SUBQ SCH ×5 (07:53→20:39)
[2020-08-30] MEDS ORDERED: *HR* HYDROmorphone (PF) 1 MG/ML SYRINGE IVP PRN (09:13)
[2020-08-30] MEDS: *HR* OxyCODONE Immed Rel 5 MG TABLET PO PRN ×3 (09:44→20:37)
[2020-08-30] MEDS: Vancomycin 1,500 MG/265 ML IV.SOLN IVPB SCH (11:08)
[2020-08-30] MEDS: Ringers Solution, Lactated 1,000 ML IVC SCH (16:13)
[2020-08-30] MEDS ORDERED: Insulin DETEMIR 100 UNIT/ML X5UNITS SUBQ SCH (21:00)
[2020-08-31 01:16] LABS: Hematocrit 33.3 % (37.5-50.1); Hemoglobin 10.7 g/dL (12.9-16.9); Mean Corpuscular HGB Conc 32.1 g/dL (31.6-35.5); Mean Corpuscular Hemoglobin 29.3 pg (28.0-33.3); Mean Corpuscular Volume 91.2 fL (83.0-100.0); Mean Platelet Volume 9.4 fL (9.4-12.4); Platelet Count 211 K/mcL (140-400); Red Blood Count 3.65 M/mcL (4.19-5.50); Red Cell Distribution Width 13.2 % (11.5-14.5); White Blood Count 7.5 K/mcL (4.3-11.1)
[2020-08-31 01:32] LABS: BUN/Creatinine Ratio 22 (6-26); Blood Urea Nitrogen 15 mg/dL (8-23); Calcium 7.9 mg/dL (8.6-10.3); Carbon Dioxide 26 mEq/L (23-29); Chloride 104 mEq/L (98-107); Glucose 263 mg/dL (70-105); Osmolality,Calculated 292 (280-300); Potassium 4.4 mEq/L (3.5-5.1); Sodium 136 mEq/L (136-145); eGFR For African Americans > 60 (> 60); eGFR For Non-African Americans > 60 (> 60)
[2020-08-31] MEDS: *HR* OxyCODONE Immed Rel 5 MG TABLET PO PRN ×4 (01:36→13:29)
[2020-08-31] MEDS: *HR* Heparin 5,000 UNIT/ML VIAL SQ SCH ×2 (05:33→13:29)
[2020-08-31] MEDS: Insulin LISPRO 300 UNITS/3 ML VIAL SUBQ SCH ×2 (08:36→11:29)
[2020-08-31] MEDS: Aspirin 81 MG TAB.CHEW PO SCH (08:41)
[2020-08-31] MEDS ORDERED: Insulin DETEMIR 100 UNIT/ML X5UNITS SUBQ SCH (09:00)
[2020-08-31 10:54] VITALS: BP 133/76
== END 2020-08-31 15:34 | disposition home or self-care (01) | DRG 253 ==
LOC: EMEROOARM 09:01 → 3ANU 09:01 → SUATTDRO 12:19 → 3ANU 13:51 → 2NNU 08-29 15:47 → 3ANU 08-30 16:22
PROVIDERS: ADMIT Student in an Organized Health Care Education/Training Program; ATTEND Internal Medicine
PROC: [UNRECOGNIZED PROCEDURE] (2020-08-29 09:15)

== ENCOUNTER 2020-09-10 01:07 | Observation (INO) ==
[2020-09-10] MEDS ORDERED: Isovue-370 500 ML BOTTLE IVP ONE ×3 (01:13→20:06)
[2020-09-10] MEDS ORDERED: *HR* FentaNYL (PF) 100 MCG/2 ML VIAL IVP ONE (01:13)
[2020-09-10] MEDS ORDERED: Aspirin 325 MG TABLET PO ONE (01:13)
[2020-09-10] MEDS ORDERED: 0.9 % Sodium Chloride 1,000 ML IVC ONE (01:13)
[2020-09-10 01:54] LABS: Activated Partial Thrombo Time 30.3 Seconds (26.0-36.0)
[2020-09-10] MEDS ORDERED: Furosemide 40 MG in 0.9 % Sodium Chloride 50 ML IV ONE (02:02)
[2020-09-10 02:05] LABS: Basophils % 0.2 %; Eosinophils # 0.2 K/mcL (0.0-0.6); Eosinophils % 1.7 %; Hematocrit 42.6 % (37.5-50.1); Hemoglobin 13.5 g/dL (12.9-16.9); Immature Granulocytes % 0.6 % (0-4); Lymphocytes # 2.1 K/mcL (0.6-4.6); Lymphocytes % 17.6 %; Mean Corpuscular HGB Conc 31.7 g/dL (31.6-35.5); Mean Corpuscular Hemoglobin 29.4 pg (28.0-33.3); Mean Corpuscular Volume 92.8 fL (83.0-100.0); Monocytes # 0.5 K/mcL (0.0-1.3); Monocytes % 4.2 %; Neutrophils # 9.1 K/mcL (1.6-8.9); Platelet Count 383 K/mcL (140-400); Red Blood Count 4.59 M/mcL (4.19-5.50); Red Cell Distribution Width 14.1 % (11.5-14.5); Segmented Neutrophils % 75.7 %
[2020-09-10 02:06] LABS: BUN/Creatinine Ratio 15 (6-26); Blood Urea Nitrogen 13 mg/dL (8-23); Calcium 9.6 mg/dL (8.6-10.3); Carbon Dioxide 28 mEq/L (23-29); Chloride 97 mEq/L (98-107); Glucose 367 mg/dL (70-105); Magnesium 1.8 mg/dL (1.6-2.6); Osmolality,Calculated 299 (280-300); Potassium 3.9 mEq/L (3.5-5.1); Sodium 137 mEq/L (136-145); eGFR For African Americans > 60 (> 60); eGFR For Non-African Americans > 60 (> 60)
[2020-09-10 02:12] LABS: Troponin I 0.07 ng/mL (< 0.04)
[2020-09-10] MEDS ORDERED: *HR* Heparin 5,000 UNIT/ML VIAL IVP ONE (02:13)
[2020-09-10] MEDS ORDERED: *HR* Heparin 5,000 UNIT/ML VIAL IVP PRN (02:13)
[2020-09-10 02:18] LABS: ABG Base Excess -1 mEq/L (-2 to 3); ABG HCO3 26 mEq/L (21-27); ABG Oxygen Saturation 92 % (95-98); ABG PCO2 55 mmHg (35-45); ABG PH 7.29 pH Units (7.32-7.45); ABG PO2 72 mmHg (85-104); ABG TCO2 28 mEq/L (20-26)
[2020-09-10] MEDS ORDERED: Furosemide 40 MG/4 ML VIAL IVP ONE (02:35)
[2020-09-10 02:41] LABS: Heparin anti-factor XA UFH < 0.04 IU/mL (0.30-0.70)
[2020-09-10 02:42] LABS: INR 1.2; Prothrombin Time 13.4 Seconds (9.4-12.1)
[2020-09-10] MEDS: Heparin 25,000UNIT/250ML 1/2NS 25,000 UNIT/250 ML IV.SOLN IVC SCH (02:52)
[2020-09-10 03:42] LABS: Hematocrit 41.7 % (37.5-50.1); Mean Corpuscular HGB Conc 31.2 g/dL (31.6-35.5); Mean Corpuscular Hemoglobin 28.8 pg (28.0-33.3); Mean Corpuscular Volume 92.5 fL (83.0-100.0); Mean Platelet Volume 8.9 fL (9.4-12.4); Platelet Count 352 K/mcL (140-400); Red Blood Count 4.51 M/mcL (4.19-5.50)
[2020-09-10 03:43] LABS: White Blood Count 18.1 K/mcL (4.3-11.1)
[2020-09-10] MEDS ORDERED: Naloxone 0.4 MG/ML INJ IVP PRN (03:46)
[2020-09-10] MEDS ORDERED: Acetaminophen 325 MG TABLET PO PRN (03:46)
[2020-09-10] MEDS ORDERED: Perflutren Lipid Microsphere 1.3 ML in 0.9 % Sodium Chloride 8.7 ML IVP PRN (03:52)
[2020-09-10] MEDS ORDERED: D5% in Water 1,000 ML IVC PRN (03:54)
[2020-09-10] MEDS ORDERED: *HR* Dextrose 50 % in Water (Vial) 50 ML VIAL IVP PRN (03:54)
[2020-09-10] MEDS ORDERED: Dextrose Gel 15 GM/37.5 ML TUBE PO PRN ×2 (03:54)
[2020-09-10 04:29] LABS: Amphetamine Screen,Urine Negative ng/mL (Cutoff=1000); Barbiturate Screen,Urine Negative ng/mL (Cutoff=200); Benzodiazepines Screen,Urine Negative ng/mL (Cutoff=200); Cannabinoid Screen,Urine Negative ng/mL (Cutoff = 50); Cocaine Screen,Urine Negative ng/mL (Cutoff= 300); Opiate Screen,Urine Positive ng/mL (Cutoff=300); Phencyclidine Screen,Urine Negative ng/mL (Cutoff=25)
[2020-09-10 06:16] LABS: Chol/HDL Ratio 2.5 (0-4.9); Magnesium 1.7 mg/dL (1.6-2.6); Phosphorous 4.9 mg/dL (2.7-4.5)
[2020-09-10] MEDS: Insulin LISPRO 300 UNITS/3 ML VIAL SUBQ SCH ×4 (06:36→23:32)
[2020-09-10] MEDS: Aspirin 81 MG TAB.CHEW PO SCH (08:12)
[2020-09-10] MEDS: Metoprolol XL (24 HR) Succ 25 MG TAB.ER.24H PO SCH (08:14)
[2020-09-10] MEDS: Ondansetron 4 MG/2 ML VIAL IVP PRN (08:15)
[2020-09-10] MEDS: *HR* HYDROcodone/Acet 5/325 mg TABLET PO PRN ×3 (08:17→16:45)
[2020-09-10] MEDS ORDERED: Furosemide 40 MG/4 ML VIAL IVP SCH (09:00)
[2020-09-10] MEDS ORDERED: cefTRIAXone 1,000 MG in Water for inj. (sterile) 10 ML IVP SCH (09:00)
[2020-09-10] MEDS: Insulin DETEMIR 100 UNIT/ML X5UNITS SUBQ SCH ×2 (09:19→22:32)
[2020-09-10] MEDS: Cefepime HCl 2,000 MG in 0.9 % Sodium Chloride Mini Bag 100 ML IVPB SCH ×2 (11:02→22:38)
[2020-09-10] MEDS: predniSONE 20 MG TABLET PO SCH (11:03)
[2020-09-10] MEDS: *HR* Heparin 5,000 UNIT/ML VIAL IVP PRN (11:03)
[2020-09-10] MEDS: Ipratropium/Albuterol Neb 3 ML IH SCH ×3 (11:28→22:39)
[2020-09-10] MEDS: Vancomycin 1,250 MG/262.5 ML IV.SOLN IVPB SCH ×2 (12:06→23:32)
[2020-09-10 13:01] LABS: Troponin I 5.55 ng/mL (< 0.04)
[2020-09-10] MEDS: Furosemide 40 MG/4 ML VIAL IVP SCH ×2 (13:49→22:32)
[2020-09-10] MEDS ORDERED: Furosemide 20 MG/2 ML VIAL IVP SCH ×2 (14:00→17:00)
[2020-09-10] MEDS ORDERED: *HR* Midazolam HCl 2 MG/2 ML VIAL ONE (14:30)
[2020-09-10] MEDS ORDERED: *HR* FentaNYL (PF) 100 MCG/2 ML VIAL ONE (14:30)
[2020-09-10] MEDS ORDERED: 0.9 % Sodium Chloride 2,000 ML ONE (14:30)
[2020-09-10] MEDS ORDERED: *HR* Heparin 10,000 UNIT/10 ML VIAL ONE (14:31)
[2020-09-10] MEDS ORDERED: ISOVUE-370 200 ML INFUS..BTL ONE (14:31)
[2020-09-10] MEDS ORDERED: Nitroglycerin 1,000 MCG/10 ML VIAL IV ONE ×2 (14:31→15:04)
[2020-09-10] MEDS ORDERED: Heparin 1,000 UNITS/500 mL 500 ML ONE (14:31)
[2020-09-10] MEDS ORDERED: Tirofiban 12.5 MG/250ML 12.5 MG/250 ML BAG ONE (15:25)
[2020-09-10] MEDS ORDERED: Insulin DETEMIR 100 UNIT/ML X5UNITS SUBQ SCH (21:00)
[2020-09-11] MEDS: *HR* HYDROcodone/Acet 5/325 mg TABLET PO PRN ×3 (01:20→16:54)
[2020-09-11 02:04] LABS: Basophils % 0.2 %; Eosinophils % 0.1 %; Hematocrit 35.8 % (37.5-50.1); Immature Granulocytes % 0.3 % (0-4); Lymphocytes # 2.2 K/mcL (0.6-4.6); Lymphocytes % 18.5 %; Mean Corpuscular HGB Conc 31.3 g/dL (31.6-35.5); Mean Corpuscular Hemoglobin 28.9 pg (28.0-33.3); Mean Corpuscular Volume 92.3 fL (83.0-100.0); Mean Platelet Volume 9.3 fL (9.4-12.4); Monocytes # 0.7 K/mcL (0.0-1.3); Monocytes % 5.6 %; Neutrophils # 8.9 K/mcL (1.6-8.9); Platelet Count 320 K/mcL (140-400); Red Blood Count 3.88 M/mcL (4.19-5.50); Segmented Neutrophils % 75.3 %; White Blood Count 11.8 K/mcL (4.3-11.1)
[2020-09-11 02:05] LABS: Hemoglobin 11.2 g/dL (12.9-16.9)
[2020-09-11] MEDS: *HR* Heparin 5,000 UNIT/ML VIAL IVP PRN (02:19)
[2020-09-11 02:25] LABS: BUN/Creatinine Ratio 25 (6-26); Blood Urea Nitrogen 19 mg/dL (8-23); Calcium 8.5 mg/dL (8.6-10.3); Carbon Dioxide 23 mEq/L (23-29); Chloride 103 mEq/L (98-107); Glucose 187 mg/dL (70-105); Osmolality,Calculated 293 (280-300); Potassium 3.7 mEq/L (3.5-5.1); Sodium 138 mEq/L (136-145); eGFR For African Americans > 60 (> 60); eGFR For Non-African Americans > 60 (> 60)
[2020-09-11] MEDS: Ipratropium/Albuterol Neb 3 ML IH SCH ×3 (03:42→16:42)
[2020-09-11] MEDS: Heparin 25,000UNIT/250ML 1/2NS 25,000 UNIT/250 ML IV.SOLN IVC SCH (05:03)
[2020-09-11] MEDS: Furosemide 40 MG/4 ML VIAL IVP SCH (05:04)
[2020-09-11] MEDS: predniSONE 20 MG TABLET PO SCH (08:31)
[2020-09-11] MEDS: Insulin DETEMIR 100 UNIT/ML X5UNITS SUBQ SCH (08:31)
[2020-09-11] MEDS: Metoprolol XL (24 HR) Succ 25 MG TAB.ER.24H PO SCH (08:32)
[2020-09-11] MEDS: Aspirin 81 MG TAB.CHEW PO SCH (08:32)
[2020-09-11] MEDS ORDERED: Povidone-Iodine 28.4 GM TUBE TP SCH (09:00)
[2020-09-11] MEDS: Insulin LISPRO 300 UNITS/3 ML VIAL SUBQ SCH ×3 (09:18→16:49)
[2020-09-11 09:36] LABS: Estimated Average Glucose 298 mg/dl
[2020-09-11] MEDS ORDERED: Spironolactone 25 MG TABLET PO SCH (10:45)
[2020-09-11] MEDS: Cefepime HCl 2,000 MG in 0.9 % Sodium Chloride Mini Bag 100 ML IVPB SCH (12:04)
[2020-09-11 12:59] LABS: Troponin I 5.08 ng/mL (< 0.04)
[2020-09-11] MEDS: Vancomycin 1,250 MG/262.5 ML IV.SOLN IVPB SCH (13:03)
[2020-09-11] MEDS ORDERED: *HR* Heparin 5,000 UNIT/ML VIAL IVP PRN ×2 (15:26)
[2020-09-11] MEDS ORDERED: Heparin 25,000UNIT/250ML 1/2NS 25,000 UNIT/250 ML IV.SOLN IVC SCH (15:30)
[2020-09-11 16:23] VITALS: BP 145/79
[2020-09-11 16:39] LABS: Hematocrit 38.1 % (37.5-50.1); Hemoglobin 12.3 g/dL (12.9-16.9); Mean Corpuscular HGB Conc 32.3 g/dL (31.6-35.5); Mean Corpuscular Hemoglobin 29.7 pg (28.0-33.3); Mean Platelet Volume 9.1 fL (9.4-12.4); Platelet Count 332 K/mcL (140-400); Red Blood Count 4.14 M/mcL (4.19-5.50); White Blood Count 12.3 K/mcL (4.3-11.1)
[2020-09-11 16:45] LABS: Heparin anti-factor XA UFH < 0.04 IU/mL (0.30-0.70)
[2020-09-11 16:46] LABS: INR 1.1
[2020-09-11] MEDS: Ondansetron 4 MG/2 ML VIAL IVP PRN (17:59)
[2020-09-11] MEDS ORDERED: *HR* Heparin 5,000 UNIT/ML VIAL SQ SCH (18:00)
[2020-09-11] MEDS ORDERED: Insulin LISPRO 300 UNITS/3 ML VIAL SUBQ SCH (21:00)
[2020-09-11] MEDS ORDERED: Sacubitril/Valsartan 24/26 MG 1 TABLET PO SCH (21:00)
[2020-09-11] MEDS ORDERED: Furosemide 40 MG/4 ML VIAL IVP SCH (21:00)
== END 2020-09-11 18:00 | disposition short-term general hospital (02) ==
LOC: EMEROOARM 01:07 → 2NNU 01:07 → SUATTDRO 03:51 → 2NNU 05:15
PROVIDERS: ADMIT Student in an Organized Health Care Education/Training Program; ATTEND Internal Medicine

== ENCOUNTER 2021-01-14 06:11 | Inpatient (IN) ==
[2021-01-14] MEDS ORDERED: CeFAZolin Syr 2,000MG/20 ML 2,000 MG/20 ML SYRINGE IVPB ONE ×2 (06:34→13:28)
[2021-01-14] MEDS ORDERED: Ringers Solution, Lactated 1,000 ML IVC SCH (06:45)
[2021-01-14] MEDS ORDERED: *HR* FentaNYL (PF) 100 MCG/2 ML VIAL ONE ×2 (07:03→10:00)
[2021-01-14] MEDS ORDERED: *HR* Midazolam HCl 2 MG/2 ML VIAL ONE (07:04)
[2021-01-14] MEDS ORDERED: *HR* Propofol 200 MG/20 ML VIAL IVP ONE (07:04)
[2021-01-14] MEDS ORDERED: Ondansetron 4 MG/2 ML VIAL IVP PRN ×3 (07:07→17:24)
[2021-01-14] MEDS ORDERED: *HR* Metoprolol 5 MG/5 ML VIAL IVP PRN (07:07)
[2021-01-14] MEDS ORDERED: Albuterol 2.5 MG/3 ML NEBULIZER IH PRN (07:07)
[2021-01-14] MEDS ORDERED: Insulin Regular, Human 100 UNIT/ML SUBQ ONE ×2 (07:07→15:49)
[2021-01-14] MEDS ORDERED: Acetaminophen IV 1,000 MG/100 ML BAG IVPB ONE (07:07)
[2021-01-14] MEDS ORDERED: *HR* OxyCODONE Immed Rel 5 MG TABLET PO PRN (07:07)
[2021-01-14] MEDS ORDERED: *HR* HYDROmorphone PF 0.5 MG/0.5 ML SYRINGE IVP PRN (07:07)
[2021-01-14] MEDS ORDERED: *HR* Succinylcholine 200 MG/10 ML VIAL IVP ONE (07:08)
[2021-01-14] MEDS ORDERED: Lidocaine -MPF 2% 2 ML VIAL ONE (07:08)
[2021-01-14] MEDS ORDERED: *HR* Rocuronium Bromide 50 MG/5 ML VIAL ONE (07:08)
[2021-01-14] MEDS ORDERED: EPHEDrine 50 MG/ML VIAL ONE (07:09)
[2021-01-14] MEDS ORDERED: Lidocaine -MPF 4% 5 ML AMPUL ONE (07:13)
[2021-01-14] MEDS ORDERED: Heparin 1,000 UNITS/500 mL 500 ML ONE (07:21)
[2021-01-14] MEDS ORDERED: Heparin 1,000 UNITS/500 mL 1,500 ML ONE (07:22)
[2021-01-14] MEDS ORDERED: Protamine Sulfate 50 MG/5 ML VIAL IVP ONE (07:22)
[2021-01-14] MEDS ORDERED: *HR* Phenylephrine 10 MG/ML VIAL ONE ×2 (07:23→14:20)
[2021-01-14] MEDS ORDERED: *HR* Remifentanil 1 MG VIAL IVP ONE ×2 (07:27→12:17)
[2021-01-14] MEDS ORDERED: ceFAZolin 1,000 MG, Sodium Chloride IRRigation 1,000 ML IR ONE (07:45)
[2021-01-14] MEDS ORDERED: Isovue-300 50ML VIAL ONE (07:46)
[2021-01-14] MEDS ORDERED: *HR* Heparin 5,000 UNIT/ML VIAL ONE ×3 (07:51→11:15)
[2021-01-14 08:53] LABS: ABG Base Excess 5 mEq/L (-2 to 3); ABG Chloride 99 mEq/L (98-107); ABG Glucose 239 mg/dL (60-95); ABG HCO3 30 mEq/L (21-27); ABG Oxygen Saturation 100 % (95-98); ABG PCO2 47 mmHg (35-45); ABG PH 7.42 pH Units (7.32-7.45); ABG PO2 577 mmHg (85-104); ABG TCO2 32 mEq/L (20-26)
[2021-01-14] MEDS ORDERED: Metoprolol XL (24 HR) Succ 50 MG TAB.ER.24H PO SCH (09:00)
[2021-01-14] MEDS ORDERED: Albumin Human 5% 12.5 GM/250 ML IV.SOLN ONE ×2 (10:12→14:08)
[2021-01-14 10:32] LABS: ABG Base Excess 2 mEq/L (-2 to 3); ABG Chloride 99 mEq/L (98-107); ABG Glucose 195 mg/dL (60-95); ABG HCO3 27 mEq/L (21-27); ABG Ionized Calcium 1.01 mmol/L (1.15-1.35); ABG Oxygen Saturation 100 % (95-98); ABG PCO2 41 mmHg (35-45); ABG PH 7.43 pH Units (7.32-7.45); ABG PO2 263 mmHg (85-104); ABG TCO2 28 mEq/L (20-26)
[2021-01-14 11:55] LABS: ABG Base Excess 2 mEq/L (-2 to 3); ABG Chloride 102 mEq/L (98-107); ABG Glucose 168 mg/dL (60-95); ABG HCO3 26 mEq/L (21-27); ABG Ionized Calcium 1.11 mmol/L (1.15-1.35); ABG Oxygen Saturation 100 % (95-98); ABG PCO2 39 mmHg (35-45); ABG PH 7.44 pH Units (7.32-7.45); ABG PO2 218 mmHg (85-104); ABG TCO2 27 mEq/L (20-26)
[2021-01-14] MEDS ORDERED: HEPARIN 1000 UNIT/500 ML ONE (13:17)
[2021-01-14 13:38] LABS: ABG Base Excess 1 mEq/L (-2 to 3); ABG Chloride 102 mEq/L (98-107); ABG Glucose 209 mg/dL (60-95); ABG HCO3 26 mEq/L (21-27); ABG Ionized Calcium 1.14 mmol/L (1.15-1.35); ABG Oxygen Saturation 100 % (95-98); ABG PCO2 42 mmHg (35-45); ABG PH 7.41 pH Units (7.32-7.45); ABG PO2 264 mmHg (85-104); ABG TCO2 28 mEq/L (20-26)
[2021-01-14] MEDS ORDERED: *HR* Vasopressin 20 UNIT/ML VIAL ONE (14:09)
[2021-01-14 14:12] LABS: ABG Base Excess 0 mEq/L (-2 to 3); ABG Chloride 102 mEq/L (98-107); ABG Glucose 240 mg/dL (60-95); ABG HCO3 25 mEq/L (21-27); ABG Oxygen Saturation 100 % (95-98); ABG PCO2 39 mmHg (35-45); ABG PH 7.42 pH Units (7.32-7.45); ABG PO2 266 mmHg (85-104); ABG TCO2 26 mEq/L (20-26)
[2021-01-14 14:50] LABS: ABG Base Excess -1 mEq/L (-2 to 3); ABG Chloride 101 mEq/L (98-107); ABG Glucose 311 mg/dL (60-95); ABG HCO3 26 mEq/L (21-27); ABG Ionized Calcium 1.06 mmol/L (1.15-1.35); ABG Oxygen Saturation 100 % (95-98); ABG PCO2 54 mmHg (35-45); ABG PH 7.29 pH Units (7.32-7.45); ABG PO2 297 mmHg (85-104); ABG TCO2 28 mEq/L (20-26)
[2021-01-14] MEDS ORDERED: *HR* Labetalol 20 MG/4 ML SYRINGE IVP ONE (15:16)
[2021-01-14] MEDS: *HR* HYDROmorphone (PF) 1 MG/ML SYRINGE IVP PRN ×5 (15:58→23:31)
[2021-01-14] MEDS ORDERED: *HR* Dextrose 50 % in Water (Vial) 50 ML VIAL IVP PRN (17:24)
[2021-01-14] MEDS ORDERED: Naloxone 0.4 MG/ML INJ IVP PRN (17:24)
[2021-01-14] MEDS ORDERED: Dextrose Gel 15 GM/37.5 ML TUBE PO PRN ×2 (17:24)
[2021-01-14] MEDS ORDERED: Acetaminophen 325 MG TABLET PO PRN (17:24)
[2021-01-14] MEDS ORDERED: D5% in Water 1,000 ML IVC PRN (17:24)
[2021-01-14] MEDS ORDERED: *HR* Labetalol 20 MG/4 ML SYRINGE IVP PRN (17:24)
[2021-01-14] MEDS: 0.9 % Sodium Chloride 1,000 ML IVC SCH (17:54)
[2021-01-14] MEDS: *HR* OxyCODONE Immed Rel 5 MG TABLET PO PRN (17:54)
[2021-01-14] MEDS: Insulin LISPRO 300 UNITS/3 ML VIAL SUBQ SCH (17:55)
[2021-01-14] MEDS: CeFAZolin 2 GM/120 ML BAG IVPB SCH (21:38)
[2021-01-14] MEDS: *HR* HYDROcodone/Acet 5/325 mg TABLET PO PRN (21:55)
[2021-01-15] MEDS: *HR* OxyCODONE Immed Rel 5 MG TABLET PO PRN ×4 (03:44→23:46)
[2021-01-15] MEDS: *HR* HYDROmorphone (PF) 1 MG/ML SYRINGE IVP PRN ×5 (05:13→19:57)
[2021-01-15] MEDS: CeFAZolin 2 GM/120 ML BAG IVPB SCH ×2 (05:23→13:58)
[2021-01-15 05:47] LABS: Basophils % 0.4 %; Eosinophils # 0.4 K/mcL (0.0-0.6); Eosinophils % 4.5 %; Hematocrit 29.7 % (37.5-50.1); Hemoglobin 10.2 g/dL (12.9-16.9); Immature Granulocytes % 0.4 % (0-4); Lymphocytes # 3.1 K/mcL (0.6-4.6); Lymphocytes % 31.6 %; Mean Corpuscular HGB Conc 34.3 g/dL (31.6-35.5); Mean Corpuscular Hemoglobin 30.1 pg (28.0-33.3); Mean Corpuscular Volume 87.6 fL (83.0-100.0); Mean Platelet Volume 9.3 fL (9.4-12.4); Monocytes # 0.9 K/mcL (0.0-1.3); Monocytes % 9.4 %; Neutrophils # 5.3 K/mcL (1.6-8.9); Platelet Count 167 K/mcL (140-400); Red Blood Count 3.39 M/mcL (4.19-5.50); Red Cell Distribution Width 15.3 % (11.5-14.5); Segmented Neutrophils % 53.7 %; White Blood Count 9.8 K/mcL (4.3-11.1)
[2021-01-15 06:05] LABS: BUN/Creatinine Ratio 21 (6-26); Blood Urea Nitrogen 12 mg/dL (8-23); Calcium 8.3 mg/dL (8.6-10.3); Carbon Dioxide 27 mEq/L (23-29); Chloride 104 mEq/L (98-107); Glucose 95 mg/dL (70-105); Osmolality,Calculated 286 (280-300); Potassium 3.7 mEq/L (3.5-5.1); Sodium 138 mEq/L (136-145); eGFR For African Americans > 60 (> 60); eGFR For Non-African Americans > 60 (> 60)
[2021-01-15] MEDS: *HR* HYDROcodone/Acet 5/325 mg TABLET PO PRN ×3 (07:39→19:58)
[2021-01-15] MEDS: Aspirin 81 MG TAB.CHEW PO SCH (07:39)
[2021-01-15] MEDS: Metoprolol XL (24 HR) Succ 25 MG TAB.ER.24H PO SCH (07:40)
[2021-01-15] MEDS: Insulin LISPRO 300 UNITS/3 ML VIAL SUBQ SCH ×4 (07:40→20:08)
[2021-01-15] MEDS: 0.9 % Sodium Chloride 1,000 ML IVC SCH (13:57)
[2021-01-15] MEDS: Sennosides/Docusate Sodium TABLET PO SCH ×2 (14:42→19:58)
[2021-01-15] MEDS ORDERED: Acetaminophen IV 1,000 MG/100 ML BAG IVPB ONE (17:31)
[2021-01-16] MEDS: *HR* HYDROmorphone (PF) 1 MG/ML SYRINGE IVP PRN ×3 (02:38→22:24)
[2021-01-16] MEDS: *HR* OxyCODONE Immed Rel 5 MG TABLET PO PRN ×3 (06:21→20:43)
[2021-01-16] MEDS: Aspirin 81 MG TAB.CHEW PO SCH (07:40)
[2021-01-16] MEDS: Sennosides/Docusate Sodium TABLET PO SCH ×2 (07:40→20:43)
[2021-01-16] MEDS: Metoprolol XL (24 HR) Succ 25 MG TAB.ER.24H PO SCH (07:40)
[2021-01-16] MEDS: *HR* HYDROcodone/Acet 5/325 mg TABLET PO PRN ×2 (07:42→15:54)
[2021-01-16] MEDS: Insulin LISPRO 300 UNITS/3 ML VIAL SUBQ SCH ×4 (07:44→20:42)
[2021-01-17] MEDS: *HR* OxyCODONE Immed Rel 5 MG TABLET PO PRN ×2 (03:34→09:21)
[2021-01-17] MEDS: *HR* HYDROmorphone (PF) 1 MG/ML SYRINGE IVP PRN ×2 (05:13→10:39)
[2021-01-17] MEDS: Metoprolol XL (24 HR) Succ 25 MG TAB.ER.24H PO SCH (09:17)
[2021-01-17] MEDS: Aspirin 81 MG TAB.CHEW PO SCH (09:17)
[2021-01-17] MEDS: Insulin LISPRO 300 UNITS/3 ML VIAL SUBQ SCH ×3 (09:17→18:10)
[2021-01-17] MEDS: Sennosides/Docusate Sodium TABLET PO SCH (09:17)
[2021-01-17 15:11] VITALS: BP 131/68
== END 2021-01-17 18:26 | disposition other institution (70) | DRG 271 ==
LOC: SAMDAY 06:11 → 2NNU 17:35
PROVIDERS: ADMIT Surgery Vascular Surgery; ATTEND Surgery Vascular Surgery
PROC: VASFFBG (ICD-10-PCS; 2021-01-14 07:45)

== ENCOUNTER 2021-01-18 20:47 | Inpatient (IN) ==
[2021-01-18] MEDS ORDERED: *HR* HYDROmorphone (PF) 1 MG/ML SYRINGE IVP ONE (21:27)
[2021-01-18] MEDS ORDERED: 0.9 % Sodium Chloride 1,000 ML IVC ONE (21:27)
[2021-01-18] MEDS ORDERED: Ondansetron 4 MG/2 ML VIAL IVP ONE (21:27)
[2021-01-18 21:46] LABS: Basophils % 0.4 %; Eosinophils # 0.1 K/mcL (0.0-0.6); Eosinophils % 1.2 %; Hematocrit 27.3 % (37.5-50.1); Hemoglobin 8.9 g/dL (12.9-16.9); Immature Granulocytes % 0.5 % (0-4); Lymphocytes # 1.3 K/mcL (0.6-4.6); Lymphocytes % 15.5 %; Mean Corpuscular HGB Conc 32.6 g/dL (31.6-35.5); Mean Corpuscular Hemoglobin 29.5 pg (28.0-33.3); Mean Corpuscular Volume 90.4 fL (83.0-100.0); Monocytes # 0.8 K/mcL (0.0-1.3); Monocytes % 9.5 %; Neutrophils # 6.1 K/mcL (1.6-8.9); Platelet Count 298 K/mcL (140-400); Red Blood Count 3.02 M/mcL (4.19-5.50); Red Cell Distribution Width 14.6 % (11.5-14.5); Segmented Neutrophils % 72.9 %; White Blood Count 8.4 K/mcL (4.3-11.1)
[2021-01-18 22:13] LABS: Alanine Aminotransferase 7 Units/L (7-52); Albumin 3.3 g/dL (3.5-5.7); Albumin/Globulin Ratio 1.1 (1.1-2.2); Alkaline Phosphatase 90 Units/L (34-104); Aspartate Amino Transferase 7 Units/L (13-39); BUN/Creatinine Ratio 17 (6-26); Bilirubin,Total 1.2 mg/dL (0.3-1.0); Blood Urea Nitrogen 11 mg/dL (8-23); Calcium 8.2 mg/dL (8.6-10.3); Carbon Dioxide 31 mEq/L (23-29); Chloride 95 mEq/L (98-107); Globulin 2.9 g/dL (2.4-3.5); Glucose 391 mg/dL (70-105); Magnesium 1.6 mg/dL (1.6-2.6); Osmolality,Calculated 294 (280-300); Phosphorous 3.2 mg/dL (2.7-4.5); Potassium 3.8 mEq/L (3.5-5.1); Sodium 134 mEq/L (136-145); Total Protein 6.2 g/dL (6.4-8.9); Troponin I 0.06 ng/mL (< 0.04); eGFR For African Americans > 60 (> 60); eGFR For Non-African Americans > 60 (> 60)
[2021-01-18 23:30] LABS: Bilirubin,Urine Negative (Negative); Blood,Urine Negative (Negative); Clarity,Urine Clear (Clear); Color,Urine Light-Yellow (Yellow); Glucose,Urine (UA) >=1000 mg/dL (Normal); Ketones,Urine Trace mg/dL (Negative); Leukocyte Esterase,Urine Negative (Negative); Nitrite,Urine Negative (Negative); PH,Urine 6.5 pH Units (5.0-8.0); Protein,Urine Negative (Neg-Trace); RBC,Urine 0-3 per hpf (0-3); Specific Gravity,Urine 1.029 (1.010-1.025); Urobilinogen,Urine Normal (Normal); WBC,Urine 0-3 per hpf (0-3)
[2021-01-19] MEDS ORDERED: Naloxone 0.4 MG/ML INJ IVP PRN (00:36)
[2021-01-19] MEDS ORDERED: Ondansetron 4 MG/2 ML VIAL IVP PRN (00:36)
[2021-01-19] MEDS ORDERED: D5% in Water 1,000 ML IVC PRN (02:01)
[2021-01-19] MEDS ORDERED: Dextrose Gel 15 GM/37.5 ML TUBE PO PRN ×2 (02:01)
[2021-01-19] MEDS ORDERED: *HR* Dextrose 50 % in Water (Vial) 50 ML VIAL IVP PRN (02:01)
[2021-01-19 03:23] LABS: Basophils % 0.3 %; Eosinophils # 0.1 K/mcL (0.0-0.6); Eosinophils % 1.3 %; Hematocrit 24.1 % (37.5-50.1); Hemoglobin 8.1 g/dL (12.9-16.9); Immature Granulocytes % 0.5 % (0-4); Lymphocytes # 1.8 K/mcL (0.6-4.6); Lymphocytes % 23.1 %; Mean Corpuscular HGB Conc 33.6 g/dL (31.6-35.5); Mean Corpuscular Hemoglobin 30.1 pg (28.0-33.3); Mean Corpuscular Volume 89.6 fL (83.0-100.0); Mean Platelet Volume 8.8 fL (9.4-12.4); Monocytes # 0.6 K/mcL (0.0-1.3); Monocytes % 7.2 %; Neutrophils # 5.3 K/mcL (1.6-8.9); Platelet Count 284 K/mcL (140-400); Red Blood Count 2.69 M/mcL (4.19-5.50); Red Cell Distribution Width 14.6 % (11.5-14.5); Segmented Neutrophils % 67.6 %; White Blood Count 7.8 K/mcL (4.3-11.1)
[2021-01-19 03:30] LABS: INR 1.3; Prothrombin Time 14.5 Seconds (9.4-12.1)
[2021-01-19 03:32] LABS: Activated Partial Thrombo Time 26.6 Seconds (26.0-36.0)
[2021-01-19 03:43] LABS: Alanine Aminotransferase 7 Units/L (7-52); Albumin/Globulin Ratio 1.2 (1.1-2.2); Alkaline Phosphatase 76 Units/L (34-104); Aspartate Amino Transferase 7 Units/L (13-39); BUN/Creatinine Ratio 16 (6-26); Blood Urea Nitrogen 9 mg/dL (8-23); Calcium 7.8 mg/dL (8.6-10.3); Carbon Dioxide 32 mEq/L (23-29); Chloride 99 mEq/L (98-107); Globulin 2.6 g/dL (2.4-3.5); Glucose 291 mg/dL (70-105); Magnesium 1.6 mg/dL (1.6-2.6); Osmolality,Calculated 291 (280-300); Phosphorous 3.2 mg/dL (2.7-4.5); Potassium 3.8 mEq/L (3.5-5.1); Sodium 136 mEq/L (136-145); Total Protein 5.6 g/dL (6.4-8.9); eGFR For African Americans > 60 (> 60); eGFR For Non-African Americans > 60 (> 60)
[2021-01-19] MEDS: Insulin LISPRO 300 UNITS/3 ML VIAL SUBQ SCH ×4 (06:15→20:33)
[2021-01-19] MEDS: chlorproMAZINE 25 MG TABLET PO SCH ×2 (13:32→20:29)
[2021-01-19] MEDS: Vancomycin 1,250 MG/262.5 ML IV.SOLN IVPB SCH (16:16)
[2021-01-19] MEDS: Piperacillin/Tazobactam 3.375 GM in 0.9 % Sodium Chloride Mini Bag 100 ML IVPB SCH (16:17)
[2021-01-20] MEDS: Piperacillin/Tazobactam 3.375 GM in 0.9 % Sodium Chloride Mini Bag 100 ML IVPB SCH ×2 (01:06→08:07)
[2021-01-20] MEDS: Vancomycin 1,250 MG/262.5 ML IV.SOLN IVPB SCH (05:03)
[2021-01-20 06:04] LABS: Basophils % 0.4 %; Eosinophils # 0.2 K/mcL (0.0-0.6); Eosinophils % 1.9 %; Immature Granulocytes % 0.6 % (0-4); Lymphocytes # 1.6 K/mcL (0.6-4.6); Lymphocytes % 18.4 %; Mean Corpuscular Volume 90.6 fL (83.0-100.0); Mean Platelet Volume 8.9 fL (9.4-12.4); Monocytes % 12.1 %; Neutrophils # 5.6 K/mcL (1.6-8.9); Platelet Count 313 K/mcL (140-400); Red Blood Count 2.76 M/mcL (4.19-5.50); Red Cell Distribution Width 14.7 % (11.5-14.5); Segmented Neutrophils % 66.6 %; White Blood Count 8.4 K/mcL (4.3-11.1)
[2021-01-20 06:40] LABS: BUN/Creatinine Ratio 17 (6-26); Blood Urea Nitrogen 9 mg/dL (8-23); Calcium 7.9 mg/dL (8.6-10.3); Carbon Dioxide 27 mEq/L (23-29); Chloride 98 mEq/L (98-107); Glucose 216 mg/dL (70-105); Osmolality,Calculated 285 (280-300); Potassium 3.6 mEq/L (3.5-5.1); Sodium 135 mEq/L (136-145); eGFR For African Americans > 60 (> 60); eGFR For Non-African Americans > 60 (> 60)
[2021-01-20] MEDS: Insulin LISPRO 300 UNITS/3 ML VIAL SUBQ SCH ×4 (08:07→20:10)
[2021-01-20] MEDS: chlorproMAZINE 25 MG TABLET PO SCH ×2 (08:08→20:10)
[2021-01-20] MEDS: lisinopriL 5 MG TABLET PO SCH (08:08)
[2021-01-20] MEDS: Spironolactone 25 MG TABLET PO SCH (08:09)
[2021-01-20] MEDS: Metoprolol XL (24 HR) Succ 50 MG TAB.ER.24H PO SCH (08:09)
[2021-01-20 09:01] LABS: Hematocrit 28.7 % (37.5-50.1); Hemoglobin 9.2 g/dL (12.9-16.9)
[2021-01-20 13:51] LABS: C-Reactive Protein 134 mg/L (Less than 10)
[2021-01-20] MEDS ORDERED: *HR* HYDROmorphone 2 MG/ML SYRINGE IVP ONE (14:41)
[2021-01-21 06:05] LABS: Basophils % 0.3 %; Eosinophils # 0.2 K/mcL (0.0-0.6); Eosinophils % 2.1 %; Hematocrit 25.1 % (37.5-50.1); Hemoglobin 8.3 g/dL (12.9-16.9); Immature Granulocytes % 0.8 % (0-4); Lymphocytes # 1.5 K/mcL (0.6-4.6); Lymphocytes % 18.6 %; Mean Corpuscular HGB Conc 33.1 g/dL (31.6-35.5); Mean Corpuscular Hemoglobin 29.7 pg (28.0-33.3); Mean Platelet Volume 8.8 fL (9.4-12.4); Monocytes # 0.9 K/mcL (0.0-1.3); Monocytes % 10.9 %; Neutrophils # 5.4 K/mcL (1.6-8.9); Platelet Count 330 K/mcL (140-400); Red Blood Count 2.79 M/mcL (4.19-5.50); Red Cell Distribution Width 14.4 % (11.5-14.5); Segmented Neutrophils % 67.3 %
[2021-01-21 06:26] LABS: BUN/Creatinine Ratio 19 (6-26); Blood Urea Nitrogen 11 mg/dL (8-23); Carbon Dioxide 29 mEq/L (23-29); Chloride 97 mEq/L (98-107); Glucose 297 mg/dL (70-105); Osmolality,Calculated 286 (280-300); Potassium 3.8 mEq/L (3.5-5.1); Sodium 133 mEq/L (136-145); eGFR For African Americans > 60 (> 60); eGFR For Non-African Americans > 60 (> 60)
[2021-01-21] MEDS: Metoprolol XL (24 HR) Succ 50 MG TAB.ER.24H PO SCH (08:08)
[2021-01-21] MEDS: Insulin LISPRO 300 UNITS/3 ML VIAL SUBQ SCH ×4 (08:08→20:53)
[2021-01-21] MEDS: chlorproMAZINE 25 MG TABLET PO SCH ×2 (08:08→20:52)
[2021-01-21] MEDS: lisinopriL 5 MG TABLET PO SCH (08:08)
[2021-01-21] MEDS: Spironolactone 25 MG TABLET PO SCH (08:08)
[2021-01-21] MEDS ORDERED: polyethylene glycoL 3350 17 GM POWD.PACK PO PRN (08:40)
[2021-01-21] MEDS: Sennosides 8.6 MG TABLET PO SCH ×2 (11:27→20:52)
[2021-01-21] MEDS: *HR* HYDROcodone/Acet 10/325 mg TABLET PO PRN ×3 (12:39→23:45)
[2021-01-21] MEDS: *HR* HYDROcodone/Acet 5/325 mg TABLET PO PRN (20:52)
[2021-01-21] MEDS: Melatonin 3 MG TABLET PO PRN (20:52)
[2021-01-21] MEDS ORDERED: Insulin DETEMIR 100 UNIT/ML X5UNITS SUBQ SCH (21:00)
[2021-01-22] MEDS: *HR* HYDROcodone/Acet 5/325 mg TABLET PO PRN ×2 (01:25→06:32)
[2021-01-22] MEDS: *HR* HYDROcodone/Acet 10/325 mg TABLET PO PRN ×5 (03:50→22:20)
[2021-01-22 05:36] LABS: Basophils % 0.1 %; Eosinophils # 0.3 K/mcL (0.0-0.6); Eosinophils % 3.5 %; Hematocrit 24.2 % (37.5-50.1); Hemoglobin 7.7 g/dL (12.9-16.9); Immature Granulocytes % 0.5 % (0-4); Lymphocytes # 1.5 K/mcL (0.6-4.6); Lymphocytes % 19.9 %; Mean Corpuscular HGB Conc 31.8 g/dL (31.6-35.5); Mean Corpuscular Hemoglobin 28.5 pg (28.0-33.3); Mean Corpuscular Volume 89.6 fL (83.0-100.0); Mean Platelet Volume 8.7 fL (9.4-12.4); Monocytes # 0.6 K/mcL (0.0-1.3); Monocytes % 8.3 %; Platelet Count 338 K/mcL (140-400); Red Cell Distribution Width 14.5 % (11.5-14.5); Segmented Neutrophils % 67.7 %; White Blood Count 7.3 K/mcL (4.3-11.1)
[2021-01-22 05:49] LABS: BUN/Creatinine Ratio 22 (6-26); Blood Urea Nitrogen 13 mg/dL (8-23); Calcium 8.1 mg/dL (8.6-10.3); Carbon Dioxide 32 mEq/L (23-29); Chloride 97 mEq/L (98-107); Glucose 165 mg/dL (70-105); Osmolality,Calculated 284 (280-300); Potassium 3.7 mEq/L (3.5-5.1); Sodium 135 mEq/L (136-145); eGFR For African Americans > 60 (> 60); eGFR For Non-African Americans > 60 (> 60)
[2021-01-22] MEDS: lisinopriL 5 MG TABLET PO SCH (08:04)
[2021-01-22] MEDS: Metoprolol XL (24 HR) Succ 50 MG TAB.ER.24H PO SCH (08:04)
[2021-01-22] MEDS: Sennosides 8.6 MG TABLET PO SCH ×2 (08:04→21:20)
[2021-01-22] MEDS: chlorproMAZINE 25 MG TABLET PO SCH ×2 (08:04→21:20)
[2021-01-22] MEDS: Spironolactone 25 MG TABLET PO SCH (08:04)
[2021-01-22] MEDS: Insulin LISPRO 300 UNITS/3 ML VIAL SUBQ SCH ×4 (08:05→21:15)
[2021-01-22] MEDS: Aspirin 81 MG TAB.CHEW PO SCH (10:41)
[2021-01-22] MEDS ORDERED: *HR* LORazepam 1 MG TABLET PO PRN (14:53)
[2021-01-22] MEDS: Melatonin 3 MG TABLET PO PRN (21:20)
[2021-01-22] MEDS: Insulin DETEMIR 100 UNIT/ML X5UNITS SUBQ SCH (21:21)
[2021-01-23] MEDS: *HR* HYDROcodone/Acet 10/325 mg TABLET PO PRN ×4 (02:20→21:30)
[2021-01-23 06:15] LABS: Hemoglobin 8.4 g/dL (12.9-16.9); Mean Corpuscular HGB Conc 32.3 g/dL (31.6-35.5); Mean Corpuscular Hemoglobin 29.1 pg (28.0-33.3); Mean Platelet Volume 8.6 fL (9.4-12.4); Platelet Count 379 K/mcL (140-400); Red Blood Count 2.89 M/mcL (4.19-5.50); Red Cell Distribution Width 14.4 % (11.5-14.5); White Blood Count 7.4 K/mcL (4.3-11.1)
[2021-01-23 07:38] LABS: BUN/Creatinine Ratio 19 (6-26); Blood Urea Nitrogen 11 mg/dL (8-23); Calcium 8.4 mg/dL (8.6-10.3); Carbon Dioxide 33 mEq/L (23-29); Chloride 99 mEq/L (98-107); Glucose 130 mg/dL (70-105); Osmolality,Calculated 285 (280-300); Potassium 3.6 mEq/L (3.5-5.1); Sodium 137 mEq/L (136-145); eGFR For African Americans > 60 (> 60); eGFR For Non-African Americans > 60 (> 60)
[2021-01-23] MEDS: Insulin LISPRO 300 UNITS/3 ML VIAL SUBQ SCH ×4 (07:41→21:31)
[2021-01-23] MEDS: Aspirin 81 MG TAB.CHEW PO SCH (09:21)
[2021-01-23] MEDS: Spironolactone 25 MG TABLET PO SCH (09:22)
[2021-01-23] MEDS: Metoprolol XL (24 HR) Succ 50 MG TAB.ER.24H PO SCH (09:23)
[2021-01-23] MEDS: chlorproMAZINE 25 MG TABLET PO SCH ×2 (09:24→21:30)
[2021-01-23] MEDS: Sennosides 8.6 MG TABLET PO SCH ×2 (09:24→21:30)
[2021-01-23] MEDS: lisinopriL 5 MG TABLET PO SCH (09:24)
[2021-01-23] MEDS ORDERED: *HR* Heparin 10,000 UNIT/10 ML VIAL ONE (14:26)
[2021-01-23] MEDS ORDERED: Isovue-300 200 mL Infus..BTL ONE (14:27)
[2021-01-23] MEDS ORDERED: Heparin 1,000 UNITS/500 mL 500 ML ONE (14:27)
[2021-01-23] MEDS ORDERED: 0.9 % Sodium Chloride 1,000 ML ONE ×2 (14:27→14:41)
[2021-01-23] MEDS ORDERED: *HR* FentaNYL (PF) 100 MCG/2 ML VIAL ONE (14:59)
[2021-01-23] MEDS ORDERED: *HR* Midazolam HCl 2 MG/2 ML VIAL ONE (14:59)
[2021-01-23] MEDS ORDERED: Acetaminophen 325 MG TABLET PO PRN (16:09)
[2021-01-23] MEDS: Insulin DETEMIR 100 UNIT/ML X5UNITS SUBQ SCH (21:30)
[2021-01-24] MEDS: *HR* HYDROcodone/Acet 10/325 mg TABLET PO PRN ×2 (03:31→07:53)
[2021-01-24 03:51] LABS: Hematocrit 27.8 % (37.5-50.1); Hemoglobin 8.8 g/dL (12.9-16.9); Mean Corpuscular HGB Conc 31.7 g/dL (31.6-35.5); Mean Corpuscular Hemoglobin 28.7 pg (28.0-33.3); Mean Corpuscular Volume 90.6 fL (83.0-100.0); Mean Platelet Volume 8.4 fL (9.4-12.4); Platelet Count 395 K/mcL (140-400); Red Blood Count 3.07 M/mcL (4.19-5.50); Red Cell Distribution Width 14.5 % (11.5-14.5); White Blood Count 6.9 K/mcL (4.3-11.1)
[2021-01-24 04:10] LABS: BUN/Creatinine Ratio 17 (6-26); Blood Urea Nitrogen 9 mg/dL (8-23); Calcium 8.6 mg/dL (8.6-10.3); Carbon Dioxide 30 mEq/L (23-29); Chloride 101 mEq/L (98-107); Glucose 126 mg/dL (70-105); Osmolality,Calculated 284 (280-300); Potassium 3.7 mEq/L (3.5-5.1); Sodium 137 mEq/L (136-145); eGFR For African Americans > 60 (> 60); eGFR For Non-African Americans > 60 (> 60)
[2021-01-24] MEDS: Insulin LISPRO 300 UNITS/3 ML VIAL SUBQ SCH (07:41)
[2021-01-24] MEDS: Spironolactone 25 MG TABLET PO SCH (07:45)
[2021-01-24] MEDS: chlorproMAZINE 25 MG TABLET PO SCH (07:45)
[2021-01-24] MEDS: Sennosides 8.6 MG TABLET PO SCH (07:45)
[2021-01-24] MEDS: lisinopriL 5 MG TABLET PO SCH (07:45)
[2021-01-24] MEDS: Aspirin 81 MG TAB.CHEW PO SCH (07:46)
[2021-01-24] MEDS: Metoprolol XL (24 HR) Succ 50 MG TAB.ER.24H PO SCH (07:46)
[2021-01-24 11:22] VITALS: BP 116/71
== END 2021-01-24 11:54 | disposition home or self-care (01) | DRG 252 ==
LOC: 2NNU 20:47 → EMEROOARM 20:47 → SUATTDRO 01-19 00:04 → 2NNU 01-19 00:50 → 3ANU 01-19 17:09 → 2NNU 01-23 16:21
PROVIDERS: ADMIT Internal Medicine; ATTEND Family Medicine

== ENCOUNTER 2021-03-31 09:01 | Inpatient (IN) ==
[2021-03-31] MEDS ORDERED: Isovue-370 500 ML BOTTLE IVP ONE (09:28)
[2021-03-31] MEDS ORDERED: 0.9 % Sodium Chloride 1,000 ML IVC ONE (09:28)
[2021-03-31] MEDS ORDERED: *HR* OxyCODONE/APAP 5/325 TABLET PO ONE ×2 (09:28→11:25)
[2021-03-31] MEDS ORDERED: Ketorolac 15 MG/ML VIAL IVP ONE (09:28)
[2021-03-31 09:54] LABS: Basophils # 0.1 K/mcL (0.0-0.2); Basophils % 0.5 %; Eosinophils # 0.2 K/mcL (0.0-0.6); Eosinophils % 1.8 %; Hematocrit 40.8 % (37.5-50.1); Hemoglobin 13.8 g/dL (12.9-16.9); Immature Granulocytes % 0.3 % (0-4); Lymphocytes # 1.8 K/mcL (0.6-4.6); Lymphocytes % 19.1 %; Mean Corpuscular HGB Conc 33.8 g/dL (31.6-35.5); Mean Corpuscular Hemoglobin 29.6 pg (28.0-33.3); Mean Corpuscular Volume 87.4 fL (83.0-100.0); Mean Platelet Volume 8.8 fL (9.4-12.4); Monocytes # 0.7 K/mcL (0.0-1.3); Monocytes % 7.1 %; Neutrophils # 6.6 K/mcL (1.6-8.9); Platelet Count 278 K/mcL (140-400); Red Blood Count 4.67 M/mcL (4.19-5.50); Red Cell Distribution Width 13.5 % (11.5-14.5); Segmented Neutrophils % 71.2 %; White Blood Count 9.3 K/mcL (4.3-11.1)
[2021-03-31 10:01] LABS: INR 1.1; Prothrombin Time 13.2 Seconds (9.4-12.1)
[2021-03-31 10:04] LABS: Activated Partial Thrombo Time 31.4 Seconds (26.0-36.0)
[2021-03-31] MEDS ORDERED: Piperacillin/Tazobactam 3.375 GM in Water for inj. (sterile) 20 ML IVP ONE (10:09)
[2021-03-31 10:11] LABS: Alanine Aminotransferase 10 Units/L (7-52); Albumin 3.8 g/dL (3.5-5.7); Albumin/Globulin Ratio 1.1 (1.1-2.2); Alkaline Phosphatase 105 Units/L (34-104); Aspartate Amino Transferase 7 Units/L (13-39); BUN/Creatinine Ratio 14 (6-26); Bilirubin,Direct 0.1 mg/dL (0.0-0.2); Bilirubin,Indirect 0.4 mg/dL (0.0-1.0); Bilirubin,Total 0.5 mg/dL (0.3-1.0); Blood Urea Nitrogen 11 mg/dL (8-23); Calcium 9.1 mg/dL (8.6-10.3); Carbon Dioxide 31 mEq/L (23-29); Chloride 94 mEq/L (98-107); Globulin 3.4 g/dL (2.4-3.5); Glucose 396 mg/dL (70-105); Osmolality,Calculated 290 (280-300); Potassium 4.2 mEq/L (3.5-5.1); Sodium 132 mEq/L (136-145); Total Protein 7.2 g/dL (6.4-8.9); eGFR For African Americans > 60 (> 60); eGFR For Non-African Americans > 60 (> 60)
[2021-03-31 11:13] LABS: Bilirubin,Urine Negative (Negative); Blood,Urine Trace-intact (Negative); Clarity,Urine Clear (Clear); Color,Urine Yellow (Yellow); Glucose,Urine (UA) >=1000 mg/dL (Normal); Ketones,Urine Negative (Negative); Leukocyte Esterase,Urine Negative (Negative); Nitrite,Urine Negative (Negative); PH,Urine 5.5 pH Units (5.0-8.0); Protein,Urine Negative (Neg-Trace); Urobilinogen,Urine Normal (Normal)
[2021-03-31] MEDS ORDERED: Naloxone 0.4 MG/ML INJ IVP PRN (12:04)
[2021-03-31] MEDS ORDERED: D5% in Water 1,000 ML IVC PRN (12:29)
[2021-03-31] MEDS ORDERED: Dextrose Gel 15 GM/37.5 ML TUBE PO PRN ×2 (12:29)
[2021-03-31] MEDS ORDERED: *HR* Dextrose 50 % in Water (Vial) 50 ML VIAL IVP PRN (12:29)
[2021-03-31] MEDS ORDERED: Acetaminophen 325 MG TABLET PO PRN (13:32)
[2021-03-31] MEDS ORDERED: Ketorolac 30 MG/ML VIAL IVP PRN (13:32)
[2021-03-31 14:59] LABS: C-Reactive Protein 50 mg/L (Less than 10)
[2021-03-31] MEDS: Insulin LISPRO 300 UNITS/3 ML VIAL SUBQ SCH ×2 (15:02→18:00)
[2021-03-31] MEDS: *HR* OxyCODONE Immed Rel 5 MG TABLET PO PRN (15:17)
[2021-03-31] MEDS ORDERED: Vancomycin 0 MG in 0.9 % Sodium Chloride 250 ML IVPB SCH (16:00)
[2021-03-31] MEDS: Cefepime HCl 2,000 MG in 0.9 % Sodium Chloride Mini Bag 100 ML IVPB SCH (17:59)
[2021-03-31] MEDS ORDERED: *HR* Heparin 5,000 UNIT/ML VIAL SQ SCH (18:00)
[2021-04-01] MEDS: *HR* OxyCODONE Immed Rel 5 MG TABLET PO PRN ×4 (00:04→23:10)
[2021-04-01] MEDS: *HR* Heparin 5,000 UNIT/ML VIAL SQ SCH ×4 (00:06→23:11)
[2021-04-01] MEDS: Insulin LISPRO 300 UNITS/3 ML VIAL SUBQ SCH ×5 (00:06→23:14)
[2021-04-01] MEDS: Cefepime HCl 2,000 MG in 0.9 % Sodium Chloride Mini Bag 100 ML IVPB SCH ×3 (00:07→17:20)
[2021-04-01 06:28] LABS: Basophils % 0.4 %; Eosinophils # 0.2 K/mcL (0.0-0.6); Eosinophils % 2.6 %; Hematocrit 37.8 % (37.5-50.1); Hemoglobin 12.5 g/dL (12.9-16.9); Immature Granulocytes % 0.2 % (0-4); Lymphocytes # 2.2 K/mcL (0.6-4.6); Lymphocytes % 27.4 %; Mean Corpuscular HGB Conc 33.1 g/dL (31.6-35.5); Mean Corpuscular Hemoglobin 29.3 pg (28.0-33.3); Mean Corpuscular Volume 88.7 fL (83.0-100.0); Mean Platelet Volume 8.7 fL (9.4-12.4); Monocytes # 0.5 K/mcL (0.0-1.3); Monocytes % 6.2 %; Neutrophils # 5.1 K/mcL (1.6-8.9); Platelet Count 265 K/mcL (140-400); Red Blood Count 4.26 M/mcL (4.19-5.50); Red Cell Distribution Width 13.3 % (11.5-14.5); Segmented Neutrophils % 63.2 %
[2021-04-01 06:56] LABS: BUN/Creatinine Ratio 16 (6-26); Blood Urea Nitrogen 11 mg/dL (8-23); Calcium 8.8 mg/dL (8.6-10.3); Carbon Dioxide 29 mEq/L (23-29); Chloride 107 mEq/L (98-107); Glucose 96 mg/dL (70-105); Osmolality,Calculated 299 (280-300); Potassium 4.3 mEq/L (3.5-5.1); Sodium 145 mEq/L (136-145); eGFR For African Americans > 60 (> 60); eGFR For Non-African Americans > 60 (> 60)
[2021-04-01] MEDS: Aspirin 81 MG TAB.CHEW PO SCH (08:24)
[2021-04-01] MEDS: lisinopriL 5 MG TABLET PO SCH (08:24)
[2021-04-01] MEDS: Metoprolol XL (24 HR) Succ 50 MG TAB.ER.24H PO SCH (08:24)
[2021-04-01] MEDS: Spironolactone 25 MG TABLET PO SCH (08:25)
[2021-04-02] MEDS: Cefepime HCl 2,000 MG in 0.9 % Sodium Chloride Mini Bag 100 ML IVPB SCH ×3 (00:58→16:34)
[2021-04-02] MEDS ORDERED: *HR* HYDROmorphone 2 MG TABLET PO ONE ×2 (01:33→21:12)
[2021-04-02] MEDS: *HR* Heparin 5,000 UNIT/ML VIAL SQ SCH ×3 (06:12→21:33)
[2021-04-02] MEDS: Insulin LISPRO 300 UNITS/3 ML VIAL SUBQ SCH ×4 (07:50→21:33)
[2021-04-02] MEDS: Spironolactone 25 MG TABLET PO SCH (07:51)
[2021-04-02] MEDS: *HR* OxyCODONE Immed Rel 5 MG TABLET PO PRN ×3 (07:51→18:42)
[2021-04-02] MEDS: Aspirin 81 MG TAB.CHEW PO SCH (07:51)
[2021-04-02] MEDS: lisinopriL 5 MG TABLET PO SCH (07:52)
[2021-04-02] MEDS: Metoprolol XL (24 HR) Succ 50 MG TAB.ER.24H PO SCH (07:52)
[2021-04-02] MEDS ORDERED: Vancomycin 1,250 MG/262.5 ML IV.SOLN IVPB SCH (11:00)
[2021-04-02] MEDS ORDERED: Acetaminophen 325 MG TABLET PO PRN (17:23)
[2021-04-02] MEDS: Vancomycin 1,500 MG/265 ML IV.SOLN IVPB SCH (21:33)
[2021-04-03] MEDS: Cefepime HCl 2,000 MG in 0.9 % Sodium Chloride Mini Bag 100 ML IVPB SCH ×4 (01:02→23:32)
[2021-04-03] MEDS: *HR* OxyCODONE Immed Rel 5 MG TABLET PO PRN ×4 (01:07→20:26)
[2021-04-03 04:32] LABS: Basophils % 0.4 %; Eosinophils # 0.2 K/mcL (0.0-0.6); Hematocrit 35.9 % (37.5-50.1); Hemoglobin 12.3 g/dL (12.9-16.9); Immature Granulocytes % 0.3 % (0-4); Lymphocytes % 26.6 %; Mean Corpuscular HGB Conc 34.3 g/dL (31.6-35.5); Mean Corpuscular Hemoglobin 29.4 pg (28.0-33.3); Mean Corpuscular Volume 85.7 fL (83.0-100.0); Mean Platelet Volume 8.5 fL (9.4-12.4); Monocytes # 0.5 K/mcL (0.0-1.3); Monocytes % 6.9 %; Neutrophils # 4.6 K/mcL (1.6-8.9); Platelet Count 272 K/mcL (140-400); Red Blood Count 4.19 M/mcL (4.19-5.50); Red Cell Distribution Width 13.2 % (11.5-14.5); Segmented Neutrophils % 62.8 %; White Blood Count 7.4 K/mcL (4.3-11.1)
[2021-04-03 04:51] LABS: BUN/Creatinine Ratio 13 (6-26); Blood Urea Nitrogen 9 mg/dL (8-23); Calcium 8.7 mg/dL (8.6-10.3); Carbon Dioxide 28 mEq/L (23-29); Chloride 100 mEq/L (98-107); Glucose 198 mg/dL (70-105); Magnesium 1.6 mg/dL (1.6-2.6); Osmolality,Calculated 284 (280-300); Potassium 4.5 mEq/L (3.5-5.1); Sodium 135 mEq/L (136-145); eGFR For African Americans > 60 (> 60); eGFR For Non-African Americans > 60 (> 60)
[2021-04-03 05:24] LABS: Estimated Average Glucose 298 mg/dl
[2021-04-03] MEDS: *HR* Heparin 5,000 UNIT/ML VIAL SQ SCH ×3 (06:16→20:26)
[2021-04-03] MEDS: Metoprolol XL (24 HR) Succ 50 MG TAB.ER.24H PO SCH (08:22)
[2021-04-03] MEDS: Aspirin 81 MG TAB.CHEW PO SCH (08:43)
[2021-04-03] MEDS ORDERED: *HR* Midazolam HCl 2 MG/2 ML VIAL ONE (09:28)
[2021-04-03] MEDS ORDERED: Lidocaine 1% 20 ML MDV ONE (09:56)
[2021-04-03] MEDS ORDERED: Vancomycin 1,000 MG VIAL ONE (10:16)
[2021-04-03] MEDS ORDERED: Bupivacaine/Clonidine Syringe 20 ML, Syringe LUER-LOK 1 EACH TP ONE (10:20)
[2021-04-03] MEDS ORDERED: Lidocaine -MPF 2% 2 ML VIAL ONE (10:30)
[2021-04-03] MEDS ORDERED: *HR* Propofol 200 MG/20 ML VIAL IVP ONE (11:18)
[2021-04-03] MEDS ORDERED: *HR* Dextrose 50 % in Water (Vial) 50 ML VIAL IVP PRN (12:29)
[2021-04-03] MEDS ORDERED: Naloxone 0.4 MG/ML INJ IVP PRN (12:29)
[2021-04-03] MEDS ORDERED: Dextrose Gel 15 GM/37.5 ML TUBE PO PRN ×2 (12:29)
[2021-04-03] MEDS ORDERED: D5% in Water 1,000 ML IVC PRN (12:29)
[2021-04-03] MEDS ORDERED: Vancomycin 1,500 MG/265 ML IV.SOLN IVPB SCH (13:00)
[2021-04-03] MEDS: Insulin LISPRO 300 UNITS/3 ML VIAL SUBQ SCH (17:52)
[2021-04-03] MEDS: Vancomycin 1,500 MG/265 ML IV.SOLN IVPB SCH (18:47)
[2021-04-03] MEDS ORDERED: Insulin LISPRO 300 UNITS/3 ML VIAL SUBQ SCH (21:00)
[2021-04-04] MEDS: *HR* OxyCODONE Immed Rel 5 MG TABLET PO PRN ×2 (00:25→04:44)
[2021-04-04] MEDS ORDERED: *HR* HYDROmorphone 2 MG TABLET PO ONE (03:07)
[2021-04-04 03:56] LABS: Basophils % 0.5 %; Eosinophils # 0.2 K/mcL (0.0-0.6); Eosinophils % 2.6 %; Hemoglobin 11.7 g/dL (12.9-16.9); Immature Granulocytes % 0.4 % (0-4); Lymphocytes # 1.7 K/mcL (0.6-4.6); Mean Corpuscular HGB Conc 33.4 g/dL (31.6-35.5); Mean Corpuscular Hemoglobin 28.8 pg (28.0-33.3); Mean Corpuscular Volume 86.2 fL (83.0-100.0); Mean Platelet Volume 8.7 fL (9.4-12.4); Monocytes # 0.8 K/mcL (0.0-1.3); Monocytes % 9.4 %; Neutrophils # 5.7 K/mcL (1.6-8.9); Platelet Count 278 K/mcL (140-400); Red Blood Count 4.06 M/mcL (4.19-5.50); Red Cell Distribution Width 13.2 % (11.5-14.5); Segmented Neutrophils % 67.1 %; White Blood Count 8.5 K/mcL (4.3-11.1)
[2021-04-04 04:14] LABS: BUN/Creatinine Ratio 17 (6-26); Blood Urea Nitrogen 12 mg/dL (8-23); Calcium 8.4 mg/dL (8.6-10.3); Carbon Dioxide 27 mEq/L (23-29); Chloride 97 mEq/L (98-107); Glucose 355 mg/dL (70-105); Magnesium 1.6 mg/dL (1.6-2.6); Osmolality,Calculated 286 (280-300); Potassium 4.5 mEq/L (3.5-5.1); Sodium 131 mEq/L (136-145); eGFR For African Americans > 60 (> 60); eGFR For Non-African Americans > 60 (> 60)
[2021-04-04] MEDS: Vancomycin 1,500 MG/265 ML IV.SOLN IVPB SCH ×2 (06:29→18:54)
[2021-04-04] MEDS: *HR* Heparin 5,000 UNIT/ML VIAL SQ SCH ×3 (06:36→21:00)
[2021-04-04] MEDS: *HR* OxyCODONE/APAP 10/325 TABLET PO PRN ×4 (08:29→20:59)
[2021-04-04] MEDS: Metoprolol XL (24 HR) Succ 50 MG TAB.ER.24H PO SCH (08:30)
[2021-04-04] MEDS: Insulin LISPRO 300 UNITS/3 ML VIAL SUBQ SCH ×3 (08:42→16:35)
[2021-04-04] MEDS: Cefepime HCl 2,000 MG in 0.9 % Sodium Chloride Mini Bag 100 ML IVPB SCH ×2 (10:04→16:39)
[2021-04-04] MEDS: Aspirin 81 MG TAB.CHEW PO SCH (10:04)
[2021-04-04] MEDS ORDERED: Insulin DETEMIR 100 UNIT/ML X5UNITS SUBQ SCH (21:00)
[2021-04-05] MEDS: Cefepime HCl 2,000 MG in 0.9 % Sodium Chloride Mini Bag 100 ML IVPB SCH ×3 (00:25→16:18)
[2021-04-05] MEDS: *HR* OxyCODONE/APAP 10/325 TABLET PO PRN ×6 (01:02→22:02)
[2021-04-05] MEDS: Vancomycin 1,500 MG/265 ML IV.SOLN IVPB SCH ×4 (01:06→17:57)
[2021-04-05] MEDS: *HR* Heparin 5,000 UNIT/ML VIAL SQ SCH ×3 (05:48→22:02)
[2021-04-05] MEDS: Insulin LISPRO 300 UNITS/3 ML VIAL SUBQ SCH ×5 (08:29→16:37)
[2021-04-05] MEDS: Metoprolol XL (24 HR) Succ 50 MG TAB.ER.24H PO SCH (08:30)
[2021-04-05] MEDS: Aspirin 81 MG TAB.CHEW PO SCH (08:31)
[2021-04-05 09:44] LABS: Basophils % 0.4 %; Eosinophils # 0.3 K/mcL (0.0-0.6); Eosinophils % 3.3 %; Hematocrit 33.7 % (37.5-50.1); Hemoglobin 11.3 g/dL (12.9-16.9); Immature Granulocytes % 0.3 % (0-4); Lymphocytes # 1.6 K/mcL (0.6-4.6); Lymphocytes % 21.5 %; Mean Corpuscular HGB Conc 33.5 g/dL (31.6-35.5); Mean Corpuscular Hemoglobin 29.7 pg (28.0-33.3); Mean Corpuscular Volume 88.5 fL (83.0-100.0); Monocytes # 0.7 K/mcL (0.0-1.3); Monocytes % 9.7 %; Neutrophils # 4.9 K/mcL (1.6-8.9); Platelet Count 298 K/mcL (140-400); Red Blood Count 3.81 M/mcL (4.19-5.50); Red Cell Distribution Width 13.3 % (11.5-14.5); Segmented Neutrophils % 64.8 %; White Blood Count 7.6 K/mcL (4.3-11.1)
[2021-04-05 10:06] LABS: BUN/Creatinine Ratio 19 (6-26); Blood Urea Nitrogen 12 mg/dL (8-23); Calcium 8.5 mg/dL (8.6-10.3); Carbon Dioxide 30 mEq/L (23-29); Chloride 100 mEq/L (98-107); Glucose 107 mg/dL (70-105); Magnesium 1.9 mg/dL (1.6-2.6); Osmolality,Calculated 280 (280-300); Potassium 4.1 mEq/L (3.5-5.1); Sodium 135 mEq/L (136-145); eGFR For African Americans > 60 (> 60); eGFR For Non-African Americans > 60 (> 60)
[2021-04-05] MEDS: Insulin DETEMIR 100 UNIT/ML X5UNITS SUBQ SCH (22:02)
[2021-04-06] MEDS: Cefepime HCl 2,000 MG in 0.9 % Sodium Chloride Mini Bag 100 ML IVPB SCH ×3 (01:13→16:55)
[2021-04-06] MEDS: Acetaminophen 325 MG TABLET PO PRN ×3 (01:23→18:46)
[2021-04-06] MEDS: Vancomycin 1,500 MG/265 ML IV.SOLN IVPB SCH ×3 (02:12→18:33)
[2021-04-06] MEDS: *HR* OxyCODONE/APAP 10/325 TABLET PO PRN ×5 (02:13→20:45)
[2021-04-06] MEDS: *HR* Heparin 5,000 UNIT/ML VIAL SQ SCH ×3 (06:32→20:46)
[2021-04-06] MEDS: Insulin LISPRO 300 UNITS/3 ML VIAL SUBQ SCH ×3 (07:13→16:55)
[2021-04-06 07:37] LABS: Basophils % 0.4 %; Eosinophils # 0.3 K/mcL (0.0-0.6); Eosinophils % 3.9 %; Hematocrit 33.6 % (37.5-50.1); Hemoglobin 10.6 g/dL (12.9-16.9); Immature Granulocytes % 0.3 % (0-4); Lymphocytes % 27.7 %; Mean Corpuscular HGB Conc 31.5 g/dL (31.6-35.5); Mean Corpuscular Hemoglobin 28.3 pg (28.0-33.3); Mean Corpuscular Volume 89.6 fL (83.0-100.0); Mean Platelet Volume 8.7 fL (9.4-12.4); Monocytes # 0.6 K/mcL (0.0-1.3); Monocytes % 8.6 %; Neutrophils # 4.2 K/mcL (1.6-8.9); Platelet Count 278 K/mcL (140-400); Red Blood Count 3.75 M/mcL (4.19-5.50); Red Cell Distribution Width 13.4 % (11.5-14.5); Segmented Neutrophils % 59.1 %; White Blood Count 7.1 K/mcL (4.3-11.1)
[2021-04-06 07:56] LABS: Blood Urea Nitrogen 13 mg/dL (8-23); Calcium 8.4 mg/dL (8.6-10.3); Carbon Dioxide 28 mEq/L (23-29); Chloride 103 mEq/L (98-107); Glucose 145 mg/dL (70-105); Magnesium 1.9 mg/dL (1.6-2.6); Osmolality,Calculated 285 (280-300); Potassium 4.3 mEq/L (3.5-5.1); Sodium 136 mEq/L (136-145)
[2021-04-06] MEDS: Metoprolol XL (24 HR) Succ 25 MG TAB.ER.24H PO SCH (08:31)
[2021-04-06] MEDS: amLODIPine 5 MG TABLET PO SCH (08:31)
[2021-04-06] MEDS: Aspirin 81 MG TAB.CHEW PO SCH (08:32)
[2021-04-06 09:59] LABS: BUN/Creatinine Ratio 20 (6-26); eGFR For African Americans > 60 (> 60); eGFR For Non-African Americans > 60 (> 60)
[2021-04-06] MEDS: Vancomycin 1,250 MG/262.5 ML IV.SOLN IVPB SCH (20:46)
[2021-04-06] MEDS: Insulin DETEMIR 100 UNIT/ML X5UNITS SUBQ SCH (20:46)
[2021-04-07] MEDS: Cefepime HCl 2,000 MG in 0.9 % Sodium Chloride Mini Bag 100 ML IVPB SCH ×2 (01:26→07:31)
[2021-04-07 03:22] LABS: Basophils % 0.6 %; Eosinophils # 0.3 K/mcL (0.0-0.6); Eosinophils % 4.4 %; Hematocrit 33.5 % (37.5-50.1); Hemoglobin 11.1 g/dL (12.9-16.9); Immature Granulocytes % 0.4 % (0-4); Lymphocytes # 1.8 K/mcL (0.6-4.6); Lymphocytes % 24.5 %; Mean Corpuscular HGB Conc 33.1 g/dL (31.6-35.5); Mean Corpuscular Hemoglobin 29.3 pg (28.0-33.3); Mean Corpuscular Volume 88.4 fL (83.0-100.0); Mean Platelet Volume 8.7 fL (9.4-12.4); Monocytes # 0.5 K/mcL (0.0-1.3); Monocytes % 7.2 %; Neutrophils # 4.6 K/mcL (1.6-8.9); Platelet Count 300 K/mcL (140-400); Red Blood Count 3.79 M/mcL (4.19-5.50); Red Cell Distribution Width 13.2 % (11.5-14.5); Segmented Neutrophils % 62.9 %; White Blood Count 7.2 K/mcL (4.3-11.1)
[2021-04-07 03:43] LABS: BUN/Creatinine Ratio 24 (6-26); Blood Urea Nitrogen 15 mg/dL (8-23); Calcium 8.6 mg/dL (8.6-10.3); Carbon Dioxide 26 mEq/L (23-29); Chloride 104 mEq/L (98-107); Glucose 187 mg/dL (70-105); Magnesium 1.8 mg/dL (1.6-2.6); Osmolality,Calculated 288 (280-300); Potassium 4.3 mEq/L (3.5-5.1); Sodium 136 mEq/L (136-145); eGFR For African Americans > 60 (> 60); eGFR For Non-African Americans > 60 (> 60)
[2021-04-07] MEDS: Vancomycin 1,250 MG/262.5 ML IV.SOLN IVPB SCH ×2 (04:07→12:42)
[2021-04-07] MEDS: *HR* OxyCODONE/APAP 10/325 TABLET PO PRN ×5 (04:12→21:23)
[2021-04-07] MEDS: *HR* Heparin 5,000 UNIT/ML VIAL SQ SCH ×3 (05:53→21:15)
[2021-04-07] MEDS: Acetaminophen 325 MG TABLET PO PRN (07:29)
[2021-04-07] MEDS: Insulin LISPRO 300 UNITS/3 ML VIAL SUBQ SCH ×3 (07:32→17:05)
[2021-04-07] MEDS: amLODIPine 5 MG TABLET PO SCH (07:33)
[2021-04-07] MEDS: Aspirin 81 MG TAB.CHEW PO SCH (07:33)
[2021-04-07] MEDS: Metoprolol XL (24 HR) Succ 25 MG TAB.ER.24H PO SCH (07:33)
[2021-04-07] MEDS ORDERED: Lidocaine -MPF 1% 5 ML AMPUL INFILT ONE (11:11)
[2021-04-07 11:22] LABS: C-Reactive Protein 38 mg/L (Less than 10)
[2021-04-07] MEDS: levoFLOXacin 750 MG/150 ML 750 MG/150 ML BAG IVPB SCH (12:42)
[2021-04-07] MEDS: metroNIDAZOLE 500 MG TABLET PO SCH ×2 (17:02→20:37)
[2021-04-07] MEDS: Insulin DETEMIR 100 UNIT/ML X5UNITS SUBQ SCH (20:38)
[2021-04-08] MEDS: *HR* OxyCODONE/APAP 10/325 TABLET PO PRN ×4 (03:37→19:41)
[2021-04-08 03:38] LABS: Basophils % 0.3 %; Eosinophils # 0.3 K/mcL (0.0-0.6); Hematocrit 36.1 % (37.5-50.1); Hemoglobin 11.6 g/dL (12.9-16.9); Immature Granulocytes % 0.3 % (0-4); Lymphocytes # 2.1 K/mcL (0.6-4.6); Lymphocytes % 26.3 %; Mean Corpuscular HGB Conc 32.1 g/dL (31.6-35.5); Mean Corpuscular Hemoglobin 28.6 pg (28.0-33.3); Mean Corpuscular Volume 88.9 fL (83.0-100.0); Mean Platelet Volume 8.6 fL (9.4-12.4); Monocytes # 0.6 K/mcL (0.0-1.3); Monocytes % 7.3 %; Neutrophils # 4.8 K/mcL (1.6-8.9); Platelet Count 333 K/mcL (140-400); Red Blood Count 4.06 M/mcL (4.19-5.50); Red Cell Distribution Width 13.2 % (11.5-14.5); Segmented Neutrophils % 61.8 %; White Blood Count 7.8 K/mcL (4.3-11.1)
[2021-04-08 03:59] LABS: BUN/Creatinine Ratio 18 (6-26); Blood Urea Nitrogen 15 mg/dL (8-23); Calcium 8.7 mg/dL (8.6-10.3); Carbon Dioxide 30 mEq/L (23-29); Chloride 103 mEq/L (98-107); Glucose 147 mg/dL (70-105); Osmolality,Calculated 288 (280-300); Potassium 4.4 mEq/L (3.5-5.1); Sodium 137 mEq/L (136-145); eGFR For African Americans > 60 (> 60); eGFR For Non-African Americans > 60 (> 60)
[2021-04-08] MEDS: *HR* Heparin 5,000 UNIT/ML VIAL SQ SCH ×3 (06:18→19:42)
[2021-04-08] MEDS: Insulin LISPRO 300 UNITS/3 ML VIAL SUBQ SCH ×3 (07:37→16:33)
[2021-04-08] MEDS: levoFLOXacin 750 MG/150 ML 750 MG/150 ML BAG IVPB SCH (08:24)
[2021-04-08] MEDS: amLODIPine 5 MG TABLET PO SCH (08:25)
[2021-04-08] MEDS: Aspirin 81 MG TAB.CHEW PO SCH (08:25)
[2021-04-08] MEDS: Metoprolol XL (24 HR) Succ 25 MG TAB.ER.24H PO SCH (08:25)
[2021-04-08] MEDS: metroNIDAZOLE 500 MG TABLET PO SCH ×3 (08:25→19:41)
[2021-04-08] MEDS: Insulin DETEMIR 100 UNIT/ML X5UNITS SUBQ SCH (20:29)
[2021-04-09] MEDS: *HR* OxyCODONE/APAP 10/325 TABLET PO PRN ×5 (02:06→23:25)
[2021-04-09 02:29] LABS: Basophils % 0.3 %; Eosinophils # 0.3 K/mcL (0.0-0.6); Eosinophils % 3.7 %; Hematocrit 34.8 % (37.5-50.1); Hemoglobin 11.1 g/dL (12.9-16.9); Immature Granulocytes % 0.4 % (0-4); Lymphocytes # 1.9 K/mcL (0.6-4.6); Mean Corpuscular HGB Conc 31.9 g/dL (31.6-35.5); Mean Corpuscular Hemoglobin 28.3 pg (28.0-33.3); Mean Corpuscular Volume 88.8 fL (83.0-100.0); Mean Platelet Volume 8.6 fL (9.4-12.4); Monocytes # 0.5 K/mcL (0.0-1.3); Neutrophils # 4.8 K/mcL (1.6-8.9); Platelet Count 325 K/mcL (140-400); Red Blood Count 3.92 M/mcL (4.19-5.50); Red Cell Distribution Width 13.3 % (11.5-14.5); Segmented Neutrophils % 63.6 %; White Blood Count 7.6 K/mcL (4.3-11.1)
[2021-04-09 02:53] LABS: BUN/Creatinine Ratio 27 (6-26); Blood Urea Nitrogen 21 mg/dL (8-23); Carbon Dioxide 31 mEq/L (23-29); Chloride 101 mEq/L (98-107); Glucose 257 mg/dL (70-105); Magnesium 1.9 mg/dL (1.6-2.6); Osmolality,Calculated 294 (280-300); Potassium 4.7 mEq/L (3.5-5.1); Sodium 136 mEq/L (136-145); eGFR For African Americans > 60 (> 60); eGFR For Non-African Americans > 60 (> 60)
[2021-04-09 03:05] LABS: Calcium 8.4 mg/dL (8.6-10.3)
[2021-04-09] MEDS: *HR* Heparin 5,000 UNIT/ML VIAL SQ SCH ×3 (06:05→20:23)
[2021-04-09] MEDS: Insulin LISPRO 300 UNITS/3 ML VIAL SUBQ SCH ×3 (07:12→16:40)
[2021-04-09] MEDS: metroNIDAZOLE 500 MG TABLET PO SCH ×3 (07:21→20:36)
[2021-04-09] MEDS: amLODIPine 5 MG TABLET PO SCH (07:22)
[2021-04-09] MEDS: Metoprolol XL (24 HR) Succ 25 MG TAB.ER.24H PO SCH (07:22)
[2021-04-09] MEDS: Aspirin 81 MG TAB.CHEW PO SCH (07:22)
[2021-04-09] MEDS: levoFLOXacin 750 MG/150 ML 750 MG/150 ML BAG IVPB SCH (07:23)
[2021-04-09] MEDS: Calcium Gluconate 1gm/50mL 1 GM/50 ML BAG IVPB SCH ×2 (09:33→10:48)
[2021-04-09 14:59] LABS: Adenovirus Not Detected (Not Detect); Bordetella Pertussis Not Detected (Not Detect); Chlamydophila pneumoniae Not Detected (Not Detect); Coronavirus 229E Not Detected (Not Detect); Coronavirus HKU1 Not Detected (Not Detect); Coronavirus NL63 Not Detected (Not Detect); Coronavirus OC43 Not Detected (Not Detect); Human Metapneumovirus Not Detected (Not Detect); Human Rhinovirus/Enterovirus Not Detected (Not Detect); Influenza A Subtype 2009 H1 Not Detected (Not Detect); Influenza B Not Detected (Not Detect); Mycoplasma pneumoniae Not Detected (Not Detect); Parainfluenza Virus 1 Not Detected (Not Detect); Parainfluenza Virus 2 Not Detected (Not Detect); Parainfluenza Virus 3 Not Detected (Not Detect); Parainfluenza Virus 4 Not Detected (Not Detect); Respiratory Syncytial Virus Not Detected (Not Detect); SARS-CoV-2 Not Detected (Not Detect)
[2021-04-09] MEDS: Acetaminophen 325 MG TABLET PO PRN (20:35)
[2021-04-09] MEDS: Insulin DETEMIR 100 UNIT/ML X5UNITS SUBQ SCH (20:36)
[2021-04-10 01:35] LABS: Hemoglobin 10.9 g/dL (12.9-16.9); Mean Corpuscular Hemoglobin 29.1 pg (28.0-33.3); Mean Corpuscular Volume 88.2 fL (83.0-100.0); Mean Platelet Volume 8.6 fL (9.4-12.4); Platelet Count 309 K/mcL (140-400); Red Blood Count 3.74 M/mcL (4.19-5.50); Red Cell Distribution Width 13.3 % (11.5-14.5); White Blood Count 6.9 K/mcL (4.3-11.1)
[2021-04-10 01:54] LABS: % Iron Saturation 18 % (20-55); BUN/Creatinine Ratio 39 (6-26); Blood Urea Nitrogen 27 mg/dL (8-23); Carbon Dioxide 29 mEq/L (23-29); Chloride 101 mEq/L (98-107); Glucose 186 mg/dL (70-105); Iron 41 mcg/dL (65-175); Magnesium 1.9 mg/dL (1.6-2.6); Osmolality,Calculated 292 (280-300); Phosphorous 4.3 mg/dL (2.7-4.5); Potassium 4.3 mEq/L (3.5-5.1); Sodium 136 mEq/L (136-145); Transferrin 162 mg/dL (203-362); eGFR For African Americans > 60 (> 60); eGFR For Non-African Americans > 60 (> 60)
[2021-04-10 02:11] LABS: Ferritin 79 ng/mL (20-250)
[2021-04-10 02:21] LABS: Calcium 8.5 mg/dL (8.6-10.3)
[2021-04-10] MEDS: *HR* Heparin 5,000 UNIT/ML VIAL SQ SCH ×3 (05:03→22:19)
[2021-04-10] MEDS ORDERED: Iron Sucrose Complex 400 MG in 0.9 % Sodium Chloride 250 ML IVPB ONE (07:54)
[2021-04-10] MEDS: Insulin LISPRO 300 UNITS/3 ML VIAL SUBQ SCH ×4 (08:11→18:20)
[2021-04-10] MEDS: amLODIPine 5 MG TABLET PO SCH (08:12)
[2021-04-10] MEDS: metroNIDAZOLE 500 MG TABLET PO SCH ×3 (08:12→22:19)
[2021-04-10] MEDS: levoFLOXacin 750 MG/150 ML 750 MG/150 ML BAG IVPB SCH (08:12)
[2021-04-10] MEDS: Aspirin 81 MG TAB.CHEW PO SCH (08:12)
[2021-04-10] MEDS: Metoprolol XL (24 HR) Succ 25 MG TAB.ER.24H PO SCH (08:12)
[2021-04-10] MEDS: *HR* OxyCODONE/APAP 10/325 TABLET PO PRN ×4 (08:14→22:26)
[2021-04-10] MEDS: Calcium Gluconate 1gm/50mL 1 GM/50 ML BAG IVPB SCH ×2 (10:06→11:07)
[2021-04-10 19:51] LABS: Folate 10.2 ng/mL (3.0-16.0)
[2021-04-10] MEDS: Lactobacillus 1 EACH CAP.SPRINK PO SCH (22:19)
[2021-04-10] MEDS: Insulin DETEMIR 100 UNIT/ML X5UNITS SUBQ SCH (22:19)
[2021-04-11] MEDS: *HR* OxyCODONE/APAP 10/325 TABLET PO PRN ×4 (03:20→16:50)
[2021-04-11 03:43] VITALS: O2SAT 98
[2021-04-11 03:57] LABS: Hemoglobin 10.9 g/dL (12.9-16.9); Mean Corpuscular HGB Conc 32.1 g/dL (31.6-35.5); Mean Corpuscular Hemoglobin 28.2 pg (28.0-33.3); Mean Corpuscular Volume 88.1 fL (83.0-100.0); Mean Platelet Volume 8.6 fL (9.4-12.4); Platelet Count 297 K/mcL (140-400); Red Blood Count 3.86 M/mcL (4.19-5.50); Red Cell Distribution Width 13.4 % (11.5-14.5); White Blood Count 6.3 K/mcL (4.3-11.1)
[2021-04-11 04:13] LABS: BUN/Creatinine Ratio 34 (6-26); Blood Urea Nitrogen 22 mg/dL (8-23); Calcium 8.7 mg/dL (8.6-10.3); Carbon Dioxide 31 mEq/L (23-29); Chloride 102 mEq/L (98-107); Glucose 206 mg/dL (70-105); Magnesium 1.9 mg/dL (1.6-2.6); Osmolality,Calculated 293 (280-300); Phosphorous 4.2 mg/dL (2.7-4.5); Potassium 4.4 mEq/L (3.5-5.1); Sodium 137 mEq/L (136-145); eGFR For African Americans > 60 (> 60); eGFR For Non-African Americans > 60 (> 60)
[2021-04-11] MEDS: *HR* Heparin 5,000 UNIT/ML VIAL SQ SCH ×2 (06:37→13:20)
[2021-04-11] MEDS: Aspirin 81 MG TAB.CHEW PO SCH (07:44)
[2021-04-11] MEDS: levoFLOXacin 750 MG/150 ML 750 MG/150 ML BAG IVPB SCH (07:45)
[2021-04-11] MEDS: Lactobacillus 1 EACH CAP.SPRINK PO SCH (07:45)
[2021-04-11] MEDS: Metoprolol XL (24 HR) Succ 25 MG TAB.ER.24H PO SCH (07:45)
[2021-04-11] MEDS: metroNIDAZOLE 500 MG TABLET PO SCH ×2 (07:45→14:48)
[2021-04-11] MEDS: Insulin LISPRO 300 UNITS/3 ML VIAL SUBQ SCH ×6 (08:09→17:34)
[2021-04-11] MEDS ORDERED: lisinopriL 5 MG TABLET PO SCH (09:00)
[2021-04-11 10:48] VITALS: TEMP 97.9
[2021-04-11 15:19] VITALS: PULSE 72
[2021-04-11 17:06] VITALS: BP 130/72
== END 2021-04-11 18:45 | disposition other institution (70) | DRG 629 ==
LOC: EMEROOARM 09:01 → 3NENU 09:01 → SUATTDRO 04-01 15:42
PROVIDERS: ADMIT Internal Medicine; ATTEND Internal Medicine

== ENCOUNTER 2021-04-22 13:10 | Observation (INO) ==
[2021-04-22] MEDS ORDERED: levoFLOXacin 750 MG/150 ML 750 MG/150 ML BAG IVPB ONE (15:21)
[2021-04-22] MEDS ORDERED: MetroNIDAZOLE 500 MG/100 ML 500 MG/100 ML BAG IVPB ONE (15:21)
[2021-04-22] MEDS ORDERED: Ondansetron 4 MG/2 ML VIAL IVP PRN (15:59)
[2021-04-22] MEDS ORDERED: D5% in Water 1,000 ML IVC PRN (15:59)
[2021-04-22] MEDS ORDERED: Dextrose Gel 15 GM/37.5 ML TUBE PO PRN ×2 (15:59)
[2021-04-22] MEDS ORDERED: Acetaminophen 325 MG TABLET PO PRN (15:59)
[2021-04-22] MEDS ORDERED: Naloxone 0.4 MG/ML INJ IVP PRN (15:59)
[2021-04-22] MEDS ORDERED: *HR* Dextrose 50 % in Water (Vial) 50 ML VIAL IVP PRN (15:59)
[2021-04-22 16:08] LABS: Basophils % 0.5 %; Eosinophils # 0.1 K/mcL (0.0-0.6); Eosinophils % 0.7 %; Hematocrit 37.1 % (37.5-50.1); Hemoglobin 12.3 g/dL (12.9-16.9); Immature Granulocytes % 0.5 % (0-4); Lymphocytes # 1.4 K/mcL (0.6-4.6); Lymphocytes % 16.9 %; Mean Corpuscular HGB Conc 33.2 g/dL (31.6-35.5); Mean Corpuscular Hemoglobin 28.9 pg (28.0-33.3); Mean Corpuscular Volume 87.3 fL (83.0-100.0); Mean Platelet Volume 8.7 fL (9.4-12.4); Monocytes # 0.5 K/mcL (0.0-1.3); Monocytes % 5.9 %; Neutrophils # 6.3 K/mcL (1.6-8.9); Platelet Count 350 K/mcL (140-400); Red Blood Count 4.25 M/mcL (4.19-5.50); Red Cell Distribution Width 14.6 % (11.5-14.5); Segmented Neutrophils % 75.5 %; White Blood Count 8.3 K/mcL (4.3-11.1)
[2021-04-22 16:14] LABS: BUN/Creatinine Ratio 12 (6-26); Blood Urea Nitrogen 9 mg/dL (8-23); Calcium 9.1 mg/dL (8.6-10.3); Carbon Dioxide 32 mEq/L (23-29); Chloride 96 mEq/L (98-107); Glucose 310 mg/dL (70-105); Osmolality,Calculated 288 (280-300); Potassium 4.2 mEq/L (3.5-5.1); Sodium 134 mEq/L (136-145); eGFR For African Americans > 60 (> 60); eGFR For Non-African Americans > 60 (> 60)
[2021-04-22] MEDS: *HR* Heparin 5,000 UNIT/ML VIAL SQ SCH (17:23)
[2021-04-22] MEDS: Insulin LISPRO 300 UNITS/3 ML VIAL SUBQ SCH (17:56)
[2021-04-22] MEDS: Vancomycin 1,250 MG/262.5 ML IV.SOLN IVPB SCH (17:56)
[2021-04-22] MEDS: *HR* HYDROcodone/Acet 5/325 mg TABLET PO PRN (17:56)
[2021-04-22] MEDS: Nicotine 21 MG PATCH.TD24 TD SCH (17:56)
[2021-04-22] MEDS: Insulin DETEMIR 100 UNIT/ML X5UNITS SUBQ SCH (19:47)
[2021-04-22] MEDS: *HR* OxyCODONE Immed Rel 5 MG TABLET PO PRN (19:48)
[2021-04-22] MEDS: metroNIDAZOLE 500 MG TABLET PO SCH (19:48)
[2021-04-23] MEDS: Vancomycin 1,250 MG/262.5 ML IV.SOLN IVPB SCH ×3 (02:38→19:03)
[2021-04-23] MEDS: *HR* OxyCODONE Immed Rel 5 MG TABLET PO PRN ×3 (03:02→18:49)
[2021-04-23] MEDS: *HR* Heparin 5,000 UNIT/ML VIAL SQ SCH ×2 (04:33→18:43)
[2021-04-23 04:48] LABS: Basophils # 0.1 K/mcL (0.0-0.2); Eosinophils # 0.4 K/mcL (0.0-0.6); Eosinophils % 6.3 %; Hematocrit 35.3 % (37.5-50.1); Hemoglobin 11.5 g/dL (12.9-16.9); Immature Granulocytes % 0.2 % (0-4); Lymphocytes # 2.1 K/mcL (0.6-4.6); Lymphocytes % 35.8 %; Mean Corpuscular HGB Conc 32.6 g/dL (31.6-35.5); Mean Corpuscular Hemoglobin 28.6 pg (28.0-33.3); Mean Corpuscular Volume 87.8 fL (83.0-100.0); Mean Platelet Volume 8.4 fL (9.4-12.4); Monocytes # 0.5 K/mcL (0.0-1.3); Monocytes % 8.5 %; Neutrophils # 2.8 K/mcL (1.6-8.9); Platelet Count 318 K/mcL (140-400); Red Blood Count 4.02 M/mcL (4.19-5.50); Red Cell Distribution Width 14.5 % (11.5-14.5); Segmented Neutrophils % 48.2 %; White Blood Count 5.8 K/mcL (4.3-11.1)
[2021-04-23 05:01] LABS: BUN/Creatinine Ratio 16 (6-26); Blood Urea Nitrogen 10 mg/dL (8-23); Calcium 8.5 mg/dL (8.6-10.3); Carbon Dioxide 28 mEq/L (23-29); Chloride 103 mEq/L (98-107); Glucose 152 mg/dL (70-105); Magnesium 1.7 mg/dL (1.6-2.6); Osmolality,Calculated 288 (280-300); Potassium 3.9 mEq/L (3.5-5.1); Sodium 138 mEq/L (136-145); eGFR For African Americans > 60 (> 60); eGFR For Non-African Americans > 60 (> 60)
[2021-04-23] MEDS: levoFLOXacin 750 MG/150 ML 750 MG/150 ML BAG IVPB SCH (08:41)
[2021-04-23] MEDS: Nicotine 21 MG PATCH.TD24 TD SCH (08:41)
[2021-04-23] MEDS: metroNIDAZOLE 500 MG TABLET PO SCH ×3 (08:41→20:56)
[2021-04-23] MEDS: *HR* HYDROcodone/Acet 5/325 mg TABLET PO PRN ×3 (08:50→21:19)
[2021-04-23] MEDS: Insulin LISPRO 300 UNITS/3 ML VIAL SUBQ SCH ×3 (08:50→18:41)
[2021-04-23] MEDS: Metoprolol XL (24 HR) Succ 25 MG TAB.ER.24H PO SCH (09:04)
[2021-04-23] MEDS: lisinopriL 5 MG TABLET PO SCH (09:04)
[2021-04-23] MEDS: Aspirin 81 MG TAB.CHEW PO SCH (09:04)
[2021-04-23] MEDS: Furosemide 40 MG TABLET PO SCH (09:04)
[2021-04-23] MEDS: Insulin DETEMIR 100 UNIT/ML X5UNITS SUBQ SCH (20:56)
[2021-04-24 02:05] LABS: Basophils # 0.1 K/mcL (0.0-0.2); Basophils % 0.8 %; Eosinophils # 0.4 K/mcL (0.0-0.6); Eosinophils % 6.7 %; Hematocrit 32.5 % (37.5-50.1); Hemoglobin 10.6 g/dL (12.9-16.9); Immature Granulocytes % 0.2 % (0-4); Lymphocytes # 2.1 K/mcL (0.6-4.6); Lymphocytes % 33.7 %; Mean Corpuscular HGB Conc 32.6 g/dL (31.6-35.5); Mean Corpuscular Hemoglobin 28.6 pg (28.0-33.3); Mean Corpuscular Volume 87.8 fL (83.0-100.0); Mean Platelet Volume 8.4 fL (9.4-12.4); Monocytes # 0.5 K/mcL (0.0-1.3); Monocytes % 8.5 %; Neutrophils # 3.1 K/mcL (1.6-8.9); Platelet Count 294 K/mcL (140-400); Red Cell Distribution Width 14.6 % (11.5-14.5); Segmented Neutrophils % 50.1 %; White Blood Count 6.2 K/mcL (4.3-11.1)
[2021-04-24] MEDS: Vancomycin 1,250 MG/262.5 ML IV.SOLN IVPB SCH ×3 (02:11→16:42)
[2021-04-24] MEDS: *HR* OxyCODONE Immed Rel 5 MG TABLET PO PRN ×2 (02:18→20:08)
[2021-04-24 02:22] LABS: BUN/Creatinine Ratio 28 (6-26); Blood Urea Nitrogen 21 mg/dL (8-23); Calcium 8.4 mg/dL (8.6-10.3); Carbon Dioxide 29 mEq/L (23-29); Chloride 103 mEq/L (98-107); Glucose 114 mg/dL (70-105); Osmolality,Calculated 290 (280-300); Potassium 3.8 mEq/L (3.5-5.1); Sodium 138 mEq/L (136-145); eGFR For African Americans > 60 (> 60); eGFR For Non-African Americans > 60 (> 60)
[2021-04-24] MEDS: *HR* Heparin 5,000 UNIT/ML VIAL SQ SCH ×2 (05:34→16:43)
[2021-04-24] MEDS: *HR* HYDROcodone/Acet 5/325 mg TABLET PO PRN ×2 (05:41→12:24)
[2021-04-24] MEDS: Insulin LISPRO 300 UNITS/3 ML VIAL SUBQ SCH ×3 (08:56→16:47)
[2021-04-24] MEDS: Furosemide 40 MG TABLET PO SCH (09:07)
[2021-04-24] MEDS: metroNIDAZOLE 500 MG TABLET PO SCH ×3 (09:07→20:07)
[2021-04-24] MEDS: Aspirin 81 MG TAB.CHEW PO SCH (09:07)
[2021-04-24] MEDS: levoFLOXacin 750 MG/150 ML 750 MG/150 ML BAG IVPB SCH (09:07)
[2021-04-24] MEDS: Metoprolol XL (24 HR) Succ 25 MG TAB.ER.24H PO SCH (09:08)
[2021-04-24] MEDS: lisinopriL 5 MG TABLET PO SCH (09:08)
[2021-04-24] MEDS: Nicotine 21 MG PATCH.TD24 TD SCH (09:16)
[2021-04-24] MEDS: Insulin DETEMIR 100 UNIT/ML X5UNITS SUBQ SCH (20:08)
[2021-04-25] MEDS: Vancomycin 1,250 MG/262.5 ML IV.SOLN IVPB SCH ×3 (01:47→18:23)
[2021-04-25] MEDS: *HR* Heparin 5,000 UNIT/ML VIAL SQ SCH ×2 (05:22→17:13)
[2021-04-25] MEDS: *HR* OxyCODONE Immed Rel 5 MG TABLET PO PRN ×2 (06:39→16:16)
[2021-04-25] MEDS: Insulin LISPRO 300 UNITS/3 ML VIAL SUBQ SCH ×6 (07:50→17:13)
[2021-04-25] MEDS: levoFLOXacin 750 MG/150 ML 750 MG/150 ML BAG IVPB SCH (08:12)
[2021-04-25] MEDS: metroNIDAZOLE 500 MG TABLET PO SCH ×3 (08:13→21:27)
[2021-04-25] MEDS: lisinopriL 5 MG TABLET PO SCH (08:13)
[2021-04-25] MEDS: Metoprolol XL (24 HR) Succ 25 MG TAB.ER.24H PO SCH (08:13)
[2021-04-25] MEDS: Aspirin 81 MG TAB.CHEW PO SCH (08:13)
[2021-04-25] MEDS: Nicotine 21 MG PATCH.TD24 TD SCH (08:13)
[2021-04-25] MEDS: Furosemide 40 MG TABLET PO SCH (08:14)
[2021-04-25] MEDS: *HR* HYDROcodone/Acet 5/325 mg TABLET PO PRN (21:28)
[2021-04-25] MEDS: Insulin DETEMIR 100 UNIT/ML X5UNITS SUBQ SCH (22:00)
[2021-04-26] MEDS: Vancomycin 1,250 MG/262.5 ML IV.SOLN IVPB SCH ×3 (02:00→17:44)
[2021-04-26] MEDS: *HR* Heparin 5,000 UNIT/ML VIAL SQ SCH ×2 (05:06→17:44)
[2021-04-26] MEDS: *HR* OxyCODONE Immed Rel 5 MG TABLET PO PRN ×2 (07:50→20:22)
[2021-04-26] MEDS: Furosemide 40 MG TABLET PO SCH (07:51)
[2021-04-26] MEDS: Nicotine 21 MG PATCH.TD24 TD SCH (07:51)
[2021-04-26] MEDS: lisinopriL 5 MG TABLET PO SCH (07:51)
[2021-04-26] MEDS: Aspirin 81 MG TAB.CHEW PO SCH (07:51)
[2021-04-26] MEDS: Metoprolol XL (24 HR) Succ 25 MG TAB.ER.24H PO SCH (07:51)
[2021-04-26] MEDS: metroNIDAZOLE 500 MG TABLET PO SCH ×3 (07:51→20:22)
[2021-04-26] MEDS: Insulin LISPRO 300 UNITS/3 ML VIAL SUBQ SCH ×6 (07:52→17:45)
[2021-04-26] MEDS: levoFLOXacin 750 MG/150 ML 750 MG/150 ML BAG IVPB SCH (09:30)
[2021-04-26] MEDS: *HR* HYDROcodone/Acet 5/325 mg TABLET PO PRN (11:41)
[2021-04-26] MEDS: Insulin DETEMIR 100 UNIT/ML X5UNITS SUBQ SCH (20:23)
[2021-04-27] MEDS: Vancomycin 1,250 MG/262.5 ML IV.SOLN IVPB SCH ×3 (01:19→18:23)
[2021-04-27] MEDS: *HR* Heparin 5,000 UNIT/ML VIAL SQ SCH ×2 (02:52→17:44)
[2021-04-27] MEDS: *HR* HYDROcodone/Acet 5/325 mg TABLET PO PRN ×2 (08:21→15:01)
[2021-04-27] MEDS: Aspirin 81 MG TAB.CHEW PO SCH (08:21)
[2021-04-27] MEDS: lisinopriL 5 MG TABLET PO SCH (08:22)
[2021-04-27] MEDS: Furosemide 40 MG TABLET PO SCH (08:22)
[2021-04-27] MEDS: Metoprolol XL (24 HR) Succ 25 MG TAB.ER.24H PO SCH (08:23)
[2021-04-27] MEDS: Nicotine 21 MG PATCH.TD24 TD SCH (08:23)
[2021-04-27] MEDS: metroNIDAZOLE 500 MG TABLET PO SCH ×3 (08:23→21:04)
[2021-04-27] MEDS: levoFLOXacin 750 MG/150 ML 750 MG/150 ML BAG IVPB SCH (08:23)
[2021-04-27] MEDS: Insulin LISPRO 300 UNITS/3 ML VIAL SUBQ SCH ×6 (08:26→16:02)
[2021-04-27] MEDS: *HR* OxyCODONE Immed Rel 5 MG TABLET PO PRN (21:03)
[2021-04-27] MEDS: Insulin DETEMIR 100 UNIT/ML X5UNITS SUBQ SCH (21:04)
[2021-04-28] MEDS: Vancomycin 1,250 MG/262.5 ML IV.SOLN IVPB SCH ×3 (02:16→18:34)
[2021-04-28] MEDS: *HR* Heparin 5,000 UNIT/ML VIAL SQ SCH ×2 (03:54→16:28)
[2021-04-28 05:04] LABS: Hematocrit 35.5 % (37.5-50.1); Hemoglobin 11.7 g/dL (12.9-16.9); Mean Corpuscular Volume 88.1 fL (83.0-100.0); Mean Platelet Volume 8.6 fL (9.4-12.4); Platelet Count 271 K/mcL (140-400); Red Blood Count 4.03 M/mcL (4.19-5.50); Red Cell Distribution Width 14.2 % (11.5-14.5); White Blood Count 5.5 K/mcL (4.3-11.1)
[2021-04-28 05:24] LABS: BUN/Creatinine Ratio 25 (6-26); Blood Urea Nitrogen 14 mg/dL (8-23); Calcium 8.6 mg/dL (8.6-10.3); Carbon Dioxide 28 mEq/L (23-29); Chloride 104 mEq/L (98-107); Glucose 219 mg/dL (70-105); Osmolality,Calculated 289 (280-300); Potassium 4.2 mEq/L (3.5-5.1); Sodium 136 mEq/L (136-145); eGFR For African Americans > 60 (> 60); eGFR For Non-African Americans > 60 (> 60)
[2021-04-28] MEDS: Insulin LISPRO 300 UNITS/3 ML VIAL SUBQ SCH ×6 (07:42→16:28)
[2021-04-28] MEDS: levoFLOXacin 750 MG/150 ML 750 MG/150 ML BAG IVPB SCH (08:48)
[2021-04-28] MEDS: *HR* OxyCODONE Immed Rel 5 MG TABLET PO PRN ×2 (08:50→16:26)
[2021-04-28] MEDS: lisinopriL 5 MG TABLET PO SCH (08:51)
[2021-04-28] MEDS: Furosemide 40 MG TABLET PO SCH (08:51)
[2021-04-28] MEDS: Metoprolol XL (24 HR) Succ 25 MG TAB.ER.24H PO SCH (08:51)
[2021-04-28] MEDS: Aspirin 81 MG TAB.CHEW PO SCH (08:51)
[2021-04-28] MEDS: metroNIDAZOLE 500 MG TABLET PO SCH ×3 (08:51→21:32)
[2021-04-28] MEDS: Nicotine 21 MG PATCH.TD24 TD SCH (10:48)
[2021-04-28] MEDS: Insulin DETEMIR 100 UNIT/ML X5UNITS SUBQ SCH (21:27)
[2021-04-28] MEDS: *HR* HYDROcodone/Acet 5/325 mg TABLET PO PRN (21:30)
[2021-04-29] MEDS: Vancomycin 1,250 MG/262.5 ML IV.SOLN IVPB SCH ×3 (03:10→19:01)
[2021-04-29] MEDS: *HR* Heparin 5,000 UNIT/ML VIAL SQ SCH ×2 (05:32→18:50)
[2021-04-29] MEDS: levoFLOXacin 750 MG/150 ML 750 MG/150 ML BAG IVPB SCH (07:48)
[2021-04-29] MEDS: Nicotine 21 MG PATCH.TD24 TD SCH (07:50)
[2021-04-29] MEDS: metroNIDAZOLE 500 MG TABLET PO SCH ×2 (07:51→16:08)
[2021-04-29] MEDS: lisinopriL 5 MG TABLET PO SCH (07:52)
[2021-04-29] MEDS: Aspirin 81 MG TAB.CHEW PO SCH (07:52)
[2021-04-29] MEDS: *HR* OxyCODONE Immed Rel 5 MG TABLET PO PRN ×2 (07:52→16:08)
[2021-04-29] MEDS: Furosemide 40 MG TABLET PO SCH (07:52)
[2021-04-29] MEDS: Metoprolol XL (24 HR) Succ 25 MG TAB.ER.24H PO SCH (07:53)
[2021-04-29] MEDS: Insulin LISPRO 300 UNITS/3 ML VIAL SUBQ SCH ×6 (07:56→16:03)
[2021-04-29 09:45] LABS: eGFR For African Americans > 60 (> 60); eGFR For Non-African Americans > 60 (> 60)
[2021-04-29 11:36] VITALS: BP 119/66; PULSE 68; TEMP 97.9; O2SAT 99
[2021-04-29 13:28] LABS: Adenovirus Not Detected (Not Detect); Bordetella Pertussis Not Detected (Not Detect); Chlamydophila pneumoniae Not Detected (Not Detect); Coronavirus 229E Not Detected (Not Detect); Coronavirus HKU1 Not Detected (Not Detect); Coronavirus NL63 Not Detected (Not Detect); Coronavirus OC43 Not Detected (Not Detect); Human Metapneumovirus Not Detected (Not Detect); Human Rhinovirus/Enterovirus Not Detected (Not Detect); Influenza A Subtype 2009 H1 Not Detected (Not Detect); Influenza B Not Detected (Not Detect); Mycoplasma pneumoniae Not Detected (Not Detect); Parainfluenza Virus 1 Not Detected (Not Detect); Parainfluenza Virus 2 Not Detected (Not Detect); Parainfluenza Virus 3 Not Detected (Not Detect); Parainfluenza Virus 4 Not Detected (Not Detect); Respiratory Syncytial Virus Not Detected (Not Detect); SARS-CoV-2 Not Detected (Not Detect)
[2021-04-29] MEDS ORDERED: Lidocaine -MPF 1% 5 ML AMPUL INFILT ONE (14:10)
== END 2021-04-29 19:54 ==
LOC: EMEROOARM 13:10 → 3BNU 13:10 → SUATTDRO 15:54 → 3BNU 16:50
PROVIDERS: ADMIT Internal Medicine; ATTEND Registered Nurse

== ENCOUNTER 2021-07-02 10:37 | Inpatient (IN) ==
[2021-07-02] MEDS ORDERED: Ketorolac 15 MG/ML VIAL IVP ONE (12:01)
[2021-07-02] MEDS ORDERED: Morphine Sulfate 2 MG/ML SYRINGE IVP ONE (12:01)
[2021-07-02] MEDS ORDERED: 0.9 % Sodium Chloride 1,000 ML IVC ONE (12:01)
[2021-07-02] MEDS ORDERED: Isovue-370 500 ML BOTTLE IVP ONE (12:02)
[2021-07-02] MEDS ORDERED: Piperacillin/Tazobactam 3.375 GM in Water for inj. (sterile) 20 ML IVP ONE (12:04)
[2021-07-02 12:32] LABS: Basophils % 0.2 %; Eosinophils % 0.3 %; Hematocrit 36.8 % (37.5-50.1); Immature Granulocytes % 0.3 % (0-4); Lymphocytes # 1.3 K/mcL (0.6-4.6); Lymphocytes % 10.3 %; Mean Corpuscular HGB Conc 32.6 g/dL (31.6-35.5); Mean Corpuscular Hemoglobin 28.8 pg (28.0-33.3); Mean Corpuscular Volume 88.2 fL (83.0-100.0); Mean Platelet Volume 8.9 fL (9.4-12.4); Monocytes # 0.9 K/mcL (0.0-1.3); Monocytes % 7.1 %; Neutrophils # 10.5 K/mcL (1.6-8.9); Platelet Count 344 K/mcL (140-400); Red Blood Count 4.17 M/mcL (4.19-5.50); Red Cell Distribution Width 14.4 % (11.5-14.5); Segmented Neutrophils % 81.8 %; White Blood Count 12.9 K/mcL (4.3-11.1)
[2021-07-02 12:51] LABS: Alanine Aminotransferase 5 Units/L (7-52); Albumin 3.5 g/dL (3.5-5.7); Albumin/Globulin Ratio 0.9 (1.1-2.2); Alkaline Phosphatase 98 Units/L (34-104); Aspartate Amino Transferase 5 Units/L (13-39); BUN/Creatinine Ratio 18 (6-26); Bilirubin,Direct 0.1 mg/dL (0.0-0.2); Bilirubin,Indirect 0.4 mg/dL (0.0-1.0); Bilirubin,Total 0.5 mg/dL (0.3-1.0); Blood Urea Nitrogen 12 mg/dL (8-23); Calcium 8.8 mg/dL (8.6-10.3); Carbon Dioxide 27 mEq/L (23-29); Chloride 93 mEq/L (98-107); Globulin 3.8 g/dL (2.4-3.5); Glucose 325 mg/dL (70-105); Osmolality,Calculated 280 (280-300); Potassium 4.4 mEq/L (3.5-5.1); Sodium 129 mEq/L (136-145); Total Protein 7.3 g/dL (6.4-8.9); eGFR For African Americans > 60 (> 60); eGFR For Non-African Americans > 60 (> 60)
[2021-07-02 13:45] LABS: C-Reactive Protein 167 mg/L (Less than 10)
[2021-07-02 14:43] LABS: Influenza A PCR Negative (Negative); Influenza B PCR Negative (Negative); Resp. Syncytial Virus PCR Negative (Negative)
[2021-07-02] MEDS ORDERED: Ondansetron 4 MG/2 ML VIAL IVP PRN (14:44)
[2021-07-02] MEDS ORDERED: Naloxone 0.4 MG/ML INJ IVP PRN (14:44)
[2021-07-02] MEDS ORDERED: D5% in Water 1,000 ML IVC PRN (14:51)
[2021-07-02] MEDS ORDERED: Dextrose Gel 15 GM/37.5 ML TUBE PO PRN ×2 (14:51)
[2021-07-02 14:56] LABS: SARS-CoV-2 by PCR (In House) Negative (Negative)
[2021-07-02] MEDS: Insulin DETEMIR 100 UNIT/ML X5UNITS SUBQ SCH ×2 (16:29→21:25)
[2021-07-02] MEDS: amLODIPine 5 MG TABLET PO SCH (16:35)
[2021-07-02] MEDS: *HR* HYDROmorphone (PF) 1 MG/ML SYRINGE IVP PRN ×2 (16:39→21:23)
[2021-07-02] MEDS: Insulin LISPRO 300 UNITS/3 ML VIAL SUBQ SCH (17:06)
[2021-07-02] MEDS: Piperacillin/Tazobactam 3.375 GM in 0.9 % Sodium Chloride Mini Bag 100 ML IVPB SCH (19:45)
[2021-07-02] MEDS: Lactobacillus 1 EACH CAP.SPRINK PO SCH (19:45)
[2021-07-02] MEDS: Acetaminophen 325 MG TABLET PO PRN (19:46)
[2021-07-02] MEDS ORDERED: *HR* LORazepam 2 MG/ML VIAL IVP ONE (20:02)
[2021-07-03] MEDS: *HR* HYDROmorphone (PF) 1 MG/ML SYRINGE IVP PRN ×5 (02:19→19:37)
[2021-07-03 02:58] LABS: Basophils % 0.3 %; Eosinophils # 0.2 K/mcL (0.0-0.6); Eosinophils % 2.1 %; Hematocrit 33.4 % (37.5-50.1); Hemoglobin 10.8 g/dL (12.9-16.9); Immature Granulocytes % 0.4 % (0-4); Lymphocytes # 2.2 K/mcL (0.6-4.6); Mean Corpuscular HGB Conc 32.3 g/dL (31.6-35.5); Mean Corpuscular Volume 89.8 fL (83.0-100.0); Mean Platelet Volume 8.7 fL (9.4-12.4); Monocytes # 0.8 K/mcL (0.0-1.3); Monocytes % 7.3 %; Neutrophils # 8.1 K/mcL (1.6-8.9); Platelet Count 317 K/mcL (140-400); Red Blood Count 3.72 M/mcL (4.19-5.50); Red Cell Distribution Width 14.6 % (11.5-14.5); Segmented Neutrophils % 70.9 %; White Blood Count 11.4 K/mcL (4.3-11.1)
[2021-07-03 03:18] LABS: BUN/Creatinine Ratio 25 (6-26); Blood Urea Nitrogen 18 mg/dL (8-23); Calcium 8.2 mg/dL (8.6-10.3); Carbon Dioxide 25 mEq/L (23-29); Chloride 99 mEq/L (98-107); Glucose 87 mg/dL (70-105); Magnesium 1.8 mg/dL (1.6-2.6); Osmolality,Calculated 277 (280-300); Potassium 3.7 mEq/L (3.5-5.1); Sodium 133 mEq/L (136-145); eGFR For African Americans > 60 (> 60); eGFR For Non-African Americans > 60 (> 60)
[2021-07-03] MEDS: *HR* Dextrose 50 % in Water (Syg) 50 ML SYRINGE IVP PRN ×3 (05:18→08:46)
[2021-07-03] MEDS: Piperacillin/Tazobactam 3.375 GM in 0.9 % Sodium Chloride Mini Bag 100 ML IVPB SCH ×3 (05:19→19:44)
[2021-07-03 06:06] LABS: Estimated Average Glucose 243 mg/dl; Hemoglobin A1C 10.1 %
[2021-07-03] MEDS: Acetaminophen 325 MG TABLET PO PRN (07:53)
[2021-07-03] MEDS: amLODIPine 5 MG TABLET PO SCH (07:54)
[2021-07-03] MEDS: Lactobacillus 1 EACH CAP.SPRINK PO SCH ×2 (07:54→19:44)
[2021-07-03] MEDS: Aspirin 81 MG TAB.CHEW PO SCH (07:54)
[2021-07-03] MEDS: Insulin DETEMIR 100 UNIT/ML X5UNITS SUBQ SCH (08:41)
[2021-07-03] MEDS: Insulin LISPRO 300 UNITS/3 ML VIAL SUBQ SCH ×3 (08:41→17:54)
[2021-07-03] MEDS: *HR* Heparin 5,000 UNIT/ML VIAL SQ SCH (17:54)
[2021-07-04] MEDS: *HR* HYDROmorphone (PF) 1 MG/ML SYRINGE IVP PRN ×5 (00:06→23:32)
[2021-07-04 00:19] LABS: Basophils % 0.2 %; Eosinophils # 0.2 K/mcL (0.0-0.6); Eosinophils % 2.6 %; Hematocrit 30.6 % (37.5-50.1); Hemoglobin 10.1 g/dL (12.9-16.9); Immature Granulocytes % 0.6 % (0-4); Lymphocytes # 1.2 K/mcL (0.6-4.6); Lymphocytes % 14.1 %; Mean Corpuscular Hemoglobin 29.4 pg (28.0-33.3); Monocytes # 0.7 K/mcL (0.0-1.3); Monocytes % 8.5 %; Neutrophils # 6.5 K/mcL (1.6-8.9); Platelet Count 320 K/mcL (140-400); Red Blood Count 3.44 M/mcL (4.19-5.50); Red Cell Distribution Width 14.5 % (11.5-14.5); White Blood Count 8.8 K/mcL (4.3-11.1)
[2021-07-04 00:33] LABS: BUN/Creatinine Ratio 20 (6-26); Blood Urea Nitrogen 13 mg/dL (8-23); Calcium 7.5 mg/dL (8.6-10.3); Carbon Dioxide 25 mEq/L (23-29); Chloride 97 mEq/L (98-107); Glucose 249 mg/dL (70-105); Osmolality,Calculated 276 (280-300); Potassium 4.1 mEq/L (3.5-5.1); Sodium 129 mEq/L (136-145); Vancomycin,Trough 9 mcg/mL (5-10); eGFR For African Americans > 60 (> 60); eGFR For Non-African Americans > 60 (> 60)
[2021-07-04] MEDS: Vancomycin 1,250 MG/262.5 ML IV.SOLN IVPB SCH ×2 (01:28→18:17)
[2021-07-04] MEDS: *HR* Heparin 5,000 UNIT/ML VIAL SQ SCH ×2 (05:16→18:20)
[2021-07-04] MEDS: Piperacillin/Tazobactam 3.375 GM in 0.9 % Sodium Chloride Mini Bag 100 ML IVPB SCH ×3 (05:18→19:33)
[2021-07-04] MEDS: Lactobacillus 1 EACH CAP.SPRINK PO SCH ×2 (08:44→19:34)
[2021-07-04] MEDS: amLODIPine 5 MG TABLET PO SCH (08:45)
[2021-07-04] MEDS: Aspirin 81 MG TAB.CHEW PO SCH (08:45)
[2021-07-04] MEDS ORDERED: 0.9 % Sodium Chloride 1,000 ML IVC ONE ×3 (09:09→17:44)
[2021-07-04] MEDS: Insulin LISPRO 300 UNITS/3 ML VIAL SUBQ SCH ×3 (10:38→18:17)
[2021-07-04] MEDS ORDERED: *HR* FentaNYL (PF) 100 MCG/2 ML VIAL ONE ×3 (13:27→17:49)
[2021-07-04] MEDS ORDERED: *HR* Propofol 200 MG/20 ML VIAL IVP ONE (13:28)
[2021-07-04] MEDS ORDERED: Lidocaine -MPF 2% 2 ML VIAL ONE ×2 (13:28→14:19)
[2021-07-04] MEDS ORDERED: *HR* Succinylcholine 200 MG/10 ML VIAL IVP ONE (13:28)
[2021-07-04] MEDS ORDERED: Sugammadex Sodium 200 MG/2 ML VIAL IV ONE ×2 (13:37→17:05)
[2021-07-04] MEDS ORDERED: ceFAZolin 1,000 MG, Sodium Chloride IRRigation 1,000 ML IR ONE ×2 (14:00→19:05)
[2021-07-04] MEDS ORDERED: *HR* Midazolam HCl 2 MG/2 ML VIAL ONE (14:37)
[2021-07-04] MEDS ORDERED: Ropivacaine/PF 0.5% 30 ML VIAL ONE ×2 (14:42→14:46)
[2021-07-04] MEDS ORDERED: *HR* Etomidate 40 MG/20 ML VIAL IVP ONE (15:02)
[2021-07-04] MEDS ORDERED: Ondansetron 4 MG/2 ML VIAL ONE (15:26)
[2021-07-04] MEDS ORDERED: Calcium Gluconate 1gm/50mL 1 GM/50 ML BAG IVPB ONE (17:44)
[2021-07-04] MEDS ORDERED: Ringers Solution, Lactated 1,000 ML ONE (17:48)
[2021-07-04] MEDS: *HR* FentaNYL (PF) 100 MCG/2 ML VIAL IVP PRN ×3 (17:51→18:06)
[2021-07-04] MEDS ORDERED: Dextrose Gel 15 GM/37.5 ML TUBE PO PRN ×2 (19:05)
[2021-07-04] MEDS ORDERED: *HR* Dextrose 50 % in Water (Syg) 50 ML SYRINGE IVP PRN (19:05)
[2021-07-04] MEDS ORDERED: Ondansetron 4 MG/2 ML VIAL IVP PRN (19:05)
[2021-07-04] MEDS ORDERED: 0.9 % Sodium Chloride 1,000 ML IVC SCH (19:05)
[2021-07-04] MEDS ORDERED: D5% in Water 1,000 ML IVC PRN (19:05)
[2021-07-04] MEDS ORDERED: Naloxone 0.4 MG/ML INJ IVP PRN (19:05)
[2021-07-04] MEDS ORDERED: *HR* HYDROcodone/Acet 5/325 mg TABLET PO PRN (19:15)
[2021-07-04] MEDS ORDERED: Ketorolac 30 MG/ML VIAL IVP PRN (19:15)
[2021-07-04] MEDS: Insulin DETEMIR 100 UNIT/ML X5UNITS SUBQ SCH (19:44)
[2021-07-04] MEDS ORDERED: Insulin DETEMIR 100 UNIT/ML X5UNITS SUBQ SCH (21:00)
[2021-07-05] MEDS: Vancomycin 1,250 MG/262.5 ML IV.SOLN IVPB SCH ×2 (00:33→12:25)
[2021-07-05] MEDS: *HR* HYDROmorphone (PF) 1 MG/ML SYRINGE IVP PRN ×6 (03:53→22:39)
[2021-07-05 04:16] LABS: Basophils % 0.1 %; Hematocrit 31.6 % (37.5-50.1); Hemoglobin 10.1 g/dL (12.9-16.9); Immature Granulocytes % 0.6 % (0-4); Lymphocytes # 1.1 K/mcL (0.6-4.6); Lymphocytes % 11.4 %; Mean Corpuscular Hemoglobin 28.5 pg (28.0-33.3); Mean Corpuscular Volume 89.3 fL (83.0-100.0); Mean Platelet Volume 8.8 fL (9.4-12.4); Monocytes # 0.6 K/mcL (0.0-1.3); Monocytes % 6.2 %; Neutrophils # 7.8 K/mcL (1.6-8.9); Platelet Count 335 K/mcL (140-400); Red Blood Count 3.54 M/mcL (4.19-5.50); Red Cell Distribution Width 14.2 % (11.5-14.5); Segmented Neutrophils % 81.7 %; White Blood Count 9.6 K/mcL (4.3-11.1)
[2021-07-05 05:24] LABS: BUN/Creatinine Ratio 25 (6-26); Blood Urea Nitrogen 14 mg/dL (8-23); Calcium 7.6 mg/dL (8.6-10.3); Carbon Dioxide 22 mEq/L (23-29); Chloride 100 mEq/L (98-107); Glucose 349 mg/dL (70-105); Osmolality,Calculated 288 (280-300); Potassium 4.4 mEq/L (3.5-5.1); Sodium 132 mEq/L (136-145); eGFR For African Americans > 60 (> 60); eGFR For Non-African Americans > 60 (> 60)
[2021-07-05] MEDS: Piperacillin/Tazobactam 3.375 GM in 0.9 % Sodium Chloride Mini Bag 100 ML IVPB SCH ×3 (05:56→21:34)
[2021-07-05] MEDS: *HR* Heparin 5,000 UNIT/ML VIAL SQ SCH ×2 (05:58→17:01)
[2021-07-05] MEDS: Insulin LISPRO 300 UNITS/3 ML VIAL SUBQ SCH ×3 (08:40→17:01)
[2021-07-05] MEDS: Lactobacillus 1 EACH CAP.SPRINK PO SCH ×2 (08:44→21:33)
[2021-07-05] MEDS: amLODIPine 5 MG TABLET PO SCH (08:44)
[2021-07-05] MEDS: Calcium Gluconate 1gm/50mL 1 GM/50 ML BAG IVPB SCH ×2 (08:45→12:21)
[2021-07-05] MEDS: Aspirin 81 MG TAB.CHEW PO SCH (08:45)
[2021-07-05] MEDS ORDERED: *HR* OxyCODONE Immed Rel 5 MG TABLET PO PRN (10:29)
[2021-07-05] MEDS ORDERED: Ketorolac 30 MG/ML VIAL IVP PRN (10:41)
[2021-07-05] MEDS ORDERED: Acetaminophen 325 MG TABLET PO SCH (12:00)
[2021-07-05] MEDS: Acetaminophen 325 MG TABLET PO SCH ×2 (12:21→17:00)
[2021-07-05] MEDS ORDERED: Ibuprofen 600 MG TABLET PO SCH ×2 (15:00)
[2021-07-05] MEDS: *HR* OxyCODONE Immed Rel 5 MG TABLET PO PRN (21:30)
[2021-07-05] MEDS: Insulin DETEMIR 100 UNIT/ML X5UNITS SUBQ SCH (21:40)
[2021-07-06 00:51] LABS: Basophils % 0.5 %; Eosinophils # 0.1 K/mcL (0.0-0.6); Eosinophils % 0.8 %; Hematocrit 29.4 % (37.5-50.1); Hemoglobin 9.6 g/dL (12.9-16.9); Immature Granulocytes % 0.6 % (0-4); Lymphocytes # 1.8 K/mcL (0.6-4.6); Lymphocytes % 21.5 %; Mean Corpuscular HGB Conc 32.7 g/dL (31.6-35.5); Mean Corpuscular Hemoglobin 28.8 pg (28.0-33.3); Mean Corpuscular Volume 88.3 fL (83.0-100.0); Monocytes # 0.6 K/mcL (0.0-1.3); Monocytes % 7.4 %; Neutrophils # 5.8 K/mcL (1.6-8.9); Platelet Count 367 K/mcL (140-400); Red Blood Count 3.33 M/mcL (4.19-5.50); Red Cell Distribution Width 14.2 % (11.5-14.5); Segmented Neutrophils % 69.2 %; White Blood Count 8.4 K/mcL (4.3-11.1)
[2021-07-06] MEDS: Acetaminophen 325 MG TABLET PO SCH ×5 (01:06→23:54)
[2021-07-06 01:07] LABS: BUN/Creatinine Ratio 18 (6-26); Blood Urea Nitrogen 10 mg/dL (8-23); Calcium 7.9 mg/dL (8.6-10.3); Carbon Dioxide 26 mEq/L (23-29); Chloride 99 mEq/L (98-107); Glucose 339 mg/dL (70-105); Osmolality,Calculated 288 (280-300); Potassium 4.3 mEq/L (3.5-5.1); Sodium 133 mEq/L (136-145); eGFR For African Americans > 60 (> 60); eGFR For Non-African Americans > 60 (> 60)
[2021-07-06] MEDS: Vancomycin 1,250 MG/262.5 ML IV.SOLN IVPB SCH (01:42)
[2021-07-06] MEDS: *HR* HYDROmorphone (PF) 1 MG/ML SYRINGE IVP PRN ×6 (01:47→23:55)
[2021-07-06] MEDS: Vancomycin 1,500 MG/265 ML IV.SOLN IVPB SCH ×2 (01:52→11:54)
[2021-07-06] MEDS: *HR* Heparin 5,000 UNIT/ML VIAL SQ SCH ×2 (06:24→17:38)
[2021-07-06] MEDS: Piperacillin/Tazobactam 3.375 GM in 0.9 % Sodium Chloride Mini Bag 100 ML IVPB SCH ×2 (06:24→11:54)
[2021-07-06] MEDS: Lactobacillus 1 EACH CAP.SPRINK PO SCH ×2 (07:58→20:38)
[2021-07-06] MEDS: Insulin LISPRO 300 UNITS/3 ML VIAL SUBQ SCH ×4 (07:58→17:39)
[2021-07-06] MEDS: amLODIPine 5 MG TABLET PO SCH (07:58)
[2021-07-06] MEDS: Aspirin 81 MG TAB.CHEW PO SCH (07:58)
[2021-07-06] MEDS: Gabapentin 100 MG CAPSULE PO SCH ×2 (11:52→20:38)
[2021-07-06] MEDS: *HR* OxyCODONE Immed Rel 5 MG TABLET PO PRN (14:44)
[2021-07-06] MEDS: Insulin DETEMIR 100 UNIT/ML X5UNITS SUBQ SCH (20:38)
[2021-07-07] MEDS: *HR* Heparin 5,000 UNIT/ML VIAL SQ SCH ×2 (04:36→17:25)
[2021-07-07] MEDS: Acetaminophen 325 MG TABLET PO SCH ×4 (04:36→23:55)
[2021-07-07] MEDS: *HR* HYDROmorphone (PF) 1 MG/ML SYRINGE IVP PRN ×3 (04:36→20:51)
[2021-07-07 05:09] LABS: Basophils % 0.6 %; Eosinophils # 0.2 K/mcL (0.0-0.6); Eosinophils % 2.7 %; Hematocrit 29.7 % (37.5-50.1); Hemoglobin 9.7 g/dL (12.9-16.9); Immature Granulocytes % 0.9 % (0-4); Lymphocytes # 1.9 K/mcL (0.6-4.6); Lymphocytes % 27.6 %; Mean Corpuscular HGB Conc 32.7 g/dL (31.6-35.5); Mean Corpuscular Hemoglobin 29.1 pg (28.0-33.3); Mean Corpuscular Volume 89.2 fL (83.0-100.0); Mean Platelet Volume 8.7 fL (9.4-12.4); Monocytes # 0.6 K/mcL (0.0-1.3); Monocytes % 8.3 %; Neutrophils # 4.2 K/mcL (1.6-8.9); Platelet Count 394 K/mcL (140-400); Red Blood Count 3.33 M/mcL (4.19-5.50); Red Cell Distribution Width 14.3 % (11.5-14.5); Segmented Neutrophils % 59.9 %
[2021-07-07 05:22] LABS: BUN/Creatinine Ratio 16 (6-26); Blood Urea Nitrogen 9 mg/dL (8-23); Calcium 8.1 mg/dL (8.6-10.3); Carbon Dioxide 28 mEq/L (23-29); Chloride 102 mEq/L (98-107); Glucose 128 mg/dL (70-105); Osmolality,Calculated 284 (280-300); Potassium 3.8 mEq/L (3.5-5.1); Sodium 137 mEq/L (136-145); eGFR For African Americans > 60 (> 60); eGFR For Non-African Americans > 60 (> 60)
[2021-07-07] MEDS: Gabapentin 100 MG CAPSULE PO SCH ×2 (08:46→19:28)
[2021-07-07] MEDS: Aspirin 81 MG TAB.CHEW PO SCH (08:47)
[2021-07-07] MEDS: amLODIPine 5 MG TABLET PO SCH (08:47)
[2021-07-07] MEDS: Insulin LISPRO 300 UNITS/3 ML VIAL SUBQ SCH ×6 (08:48→17:27)
[2021-07-07] MEDS: Lactobacillus 1 EACH CAP.SPRINK PO SCH ×2 (08:48→19:28)
[2021-07-07] MEDS: *HR* OxyCODONE Immed Rel 5 MG TABLET PO PRN (08:57)
[2021-07-07] MEDS: *HR* OxyCODONE Immed Rel 15 MG TABLET PO PRN ×2 (15:31→23:56)
[2021-07-07] MEDS: Insulin DETEMIR 100 UNIT/ML X5UNITS SUBQ SCH (20:50)
[2021-07-08 02:23] LABS: Basophils % 0.6 %; Eosinophils # 0.2 K/mcL (0.0-0.6); Eosinophils % 2.7 %; Hematocrit 29.5 % (37.5-50.1); Hemoglobin 9.5 g/dL (12.9-16.9); Immature Granulocytes % 1.1 % (0-4); Lymphocytes # 2.1 K/mcL (0.6-4.6); Lymphocytes % 33.5 %; Mean Corpuscular HGB Conc 32.2 g/dL (31.6-35.5); Mean Corpuscular Volume 89.9 fL (83.0-100.0); Mean Platelet Volume 8.8 fL (9.4-12.4); Monocytes # 0.4 K/mcL (0.0-1.3); Monocytes % 6.5 %; Neutrophils # 3.5 K/mcL (1.6-8.9); Platelet Count 406 K/mcL (140-400); Red Blood Count 3.28 M/mcL (4.19-5.50); Red Cell Distribution Width 14.4 % (11.5-14.5); Segmented Neutrophils % 55.6 %; White Blood Count 6.3 K/mcL (4.3-11.1)
[2021-07-08 02:40] LABS: BUN/Creatinine Ratio 20 (6-26); Blood Urea Nitrogen 16 mg/dL (8-23); Carbon Dioxide 27 mEq/L (23-29); Chloride 101 mEq/L (98-107); Glucose 278 mg/dL (70-105); Osmolality,Calculated 291 (280-300); Potassium 4.1 mEq/L (3.5-5.1); Sodium 135 mEq/L (136-145); eGFR For African Americans > 60 (> 60); eGFR For Non-African Americans > 60 (> 60)
[2021-07-08 03:09] LABS: Platelet Estimate Normal (Normal)
[2021-07-08] MEDS: *HR* HYDROmorphone (PF) 1 MG/ML SYRINGE IVP PRN (05:17)
[2021-07-08] MEDS: *HR* Heparin 5,000 UNIT/ML VIAL SQ SCH ×2 (06:11→17:46)
[2021-07-08] MEDS: Acetaminophen 325 MG TABLET PO SCH ×3 (06:12→17:46)
[2021-07-08] MEDS: Lactobacillus 1 EACH CAP.SPRINK PO SCH ×2 (08:21→20:31)
[2021-07-08] MEDS: amLODIPine 5 MG TABLET PO SCH (08:22)
[2021-07-08] MEDS: Aspirin 81 MG TAB.CHEW PO SCH (08:22)
[2021-07-08] MEDS: Gabapentin 100 MG CAPSULE PO SCH ×3 (08:22→20:31)
[2021-07-08] MEDS: Insulin LISPRO 300 UNITS/3 ML VIAL SUBQ SCH ×6 (08:24→17:48)
[2021-07-08] MEDS: *HR* OxyCODONE Immed Rel 15 MG TABLET PO PRN (08:30)
[2021-07-08] MEDS: *HR* OxyCODONE/APAP 5/325 TABLET PO PRN ×2 (12:59→20:40)
[2021-07-08 15:37] LABS: Influenza A PCR Negative (Negative); Influenza B PCR Negative (Negative); Resp. Syncytial Virus PCR Negative (Negative)
[2021-07-08 15:56] LABS: SARS-CoV-2 by PCR (In House) Negative (Negative)
[2021-07-08] MEDS ORDERED: *HR* OxyCODONE ER (12 HR) 20 MG TABLET PO SCH (18:00)
[2021-07-08 18:55] VITALS: BP 164/77; PULSE 77; TEMP 97.8; O2SAT 94
[2021-07-08] MEDS: Insulin DETEMIR 100 UNIT/ML X5UNITS SUBQ SCH (20:31)
== END 2021-07-08 21:30 | DRG 856 ==
LOC: 3ANU 10:37 → EMEROOARM 10:37 → SUATTDRO 14:45 → 3ANU 15:51 → SUATTDRO 07-03 20:38
PROVIDERS: ADMIT Pharmacist; ATTEND Internal Medicine

== ENCOUNTER 2022-04-19 18:56 | Inpatient (IN) ==
[2022-04-19 19:34] LABS: Basophils % 0.3 %; Eosinophils # 0.1 K/mcL (0.0-0.6); Eosinophils % 1.2 %; Hemoglobin 14.7 g/dL (12.9-16.9); Immature Granulocytes % 0.3 % (0-4); Lymphocytes # 0.8 K/mcL (0.6-4.6); Lymphocytes % 7.3 %; Mean Corpuscular HGB Conc 34.2 g/dL (31.6-35.5); Mean Corpuscular Hemoglobin 30.6 pg (28.0-33.3); Mean Corpuscular Volume 89.6 fL (83.0-100.0); Mean Platelet Volume 8.9 fL (9.4-12.4); Monocytes # 0.6 K/mcL (0.0-1.3); Monocytes % 5.6 %; Neutrophils # 9.4 K/mcL (1.6-8.9); Platelet Count 238 K/mcL (140-400); Red Cell Distribution Width 13.4 % (11.5-14.5); Segmented Neutrophils % 85.3 %; White Blood Count 11.1 K/mcL (4.3-11.1)
[2022-04-19 19:56] LABS: BUN/Creatinine Ratio 19 (6-26); Blood Urea Nitrogen 19 mg/dL (8-23); Carbon Dioxide 26 mEq/L (23-29); Chloride 99 mEq/L (98-107); Glucose 286 mg/dL (70-105); Osmolality,Calculated 291 (280-300); Potassium 3.9 mEq/L (3.5-5.1); Sodium 134 mEq/L (136-145); Troponin I < 0.03 ng/mL (< 0.04)
[2022-04-19 20:08] LABS: Influenza A PCR Negative (Negative); Influenza B PCR Negative (Negative); Resp. Syncytial Virus PCR Negative (Negative)
[2022-04-19 20:09] LABS: SARS-CoV-2 by PCR (In House) Negative (Negative)
[2022-04-19] MEDS ORDERED: Aspirin 325 MG TABLET PO ONE (22:05)
[2022-04-19] MEDS ORDERED: Iopamidol - 370 500 ML MLS IVP ONE ×2 (22:05→23:25)
[2022-04-19] MEDS ORDERED: Vancomycin 1,250 MG/262.5 ML IV.SOLN IVPB ONE (22:09)
[2022-04-19] MEDS ORDERED: Cefepime HCl 2,000 MG in 0.9 % Sodium Chloride 10 ML IVP ONE (22:11)
[2022-04-19 22:30] LABS: C-Reactive Protein 16 mg/L (Less than 10)
[2022-04-20] MEDS ORDERED: Ondansetron 4 MG/2 ML VIAL IVP ONE (00:40)
[2022-04-20] MEDS ORDERED: Clindamycin 600 MG/50 ML 600 MG/50 ML IV.SOLN IVPB ONE (00:42)
[2022-04-20] MEDS ORDERED: Ondansetron 4 MG/2 ML VIAL IVP PRN (04:22)
[2022-04-20] MEDS ORDERED: Naloxone 0.4 MG/ML INJ IVP PRN ×2 (04:22→10:14)
[2022-04-20] MEDS ORDERED: Acetaminophen 325 MG TABLET PO PRN (04:22)
[2022-04-20] MEDS ORDERED: 0.9 % Sodium Chloride 1,000 ML IVC SCH (04:30)
[2022-04-20] MEDS ORDERED: *HR* Dextrose 50 % in Water (Syg) 50 ML SYRINGE IVP PRN ×2 (05:14→15:34)
[2022-04-20] MEDS ORDERED: Dextrose Gel 15 GM/37.5 ML TUBE PO PRN ×4 (05:14→15:34)
[2022-04-20] MEDS ORDERED: D5% in Water 1,000 ML IVC PRN ×2 (05:14→15:34)
[2022-04-20] MEDS ORDERED: Nitroglycerin 0.4 MG TAB.SUBL SL PRN (05:20)
[2022-04-20 05:49] LABS: Hematocrit 40.3 % (37.5-50.1); Hemoglobin 13.9 g/dL (12.9-16.9); Mean Corpuscular HGB Conc 34.5 g/dL (31.6-35.5); Mean Corpuscular Hemoglobin 31.2 pg (28.0-33.3); Mean Corpuscular Volume 90.4 fL (83.0-100.0); Mean Platelet Volume 9.2 fL (9.4-12.4); Platelet Count 213 K/mcL (140-400); Red Blood Count 4.46 M/mcL (4.19-5.50); Red Cell Distribution Width 13.5 % (11.5-14.5)
[2022-04-20] MEDS ORDERED: Insulin DETEMIR 100 UNIT/ML X5UNITS SUBQ SCH (06:00)
[2022-04-20 06:34] LABS: BUN/Creatinine Ratio 20 (6-26); Blood Urea Nitrogen 17 mg/dL (8-23); Calcium 8.6 mg/dL (8.6-10.3); Carbon Dioxide 25 mEq/L (23-29); Chloride 101 mEq/L (98-107); Glucose 251 mg/dL (70-105); Osmolality,Calculated 290 (280-300); Potassium 3.9 mEq/L (3.5-5.1); Sodium 135 mEq/L (136-145); Troponin I 0.06 ng/mL (< 0.04)
[2022-04-20] MEDS: *HR* Heparin 5,000 UNIT/ML VIAL SQ SCH ×3 (06:48→22:12)
[2022-04-20 07:41] LABS: Bacteria,Urine Few per hpf (None-Few); Bilirubin,Urine Negative (Negative); Blood,Urine Moderate (Negative); Clarity,Urine Clear (Clear); Color,Urine Light-Yellow (Yellow); Glucose,Urine (UA) 500 mg/dL (Normal); Ketones,Urine Trace mg/dL (Negative); Leukocyte Esterase,Urine Negative (Negative); Nitrite,Urine Negative (Negative); Protein,Urine 30 mg/dL (Neg-Trace); Specific Gravity,Urine > 1.030 (1.010-1.025); Urobilinogen,Urine Normal (Normal); WBC,Urine 0-3 per hpf (0-3)
[2022-04-20] MEDS ORDERED: Piperacillin/Tazobactam 3.375 GM in 0.9 % Sodium Chloride Mini Bag 100 ML IVPB SCH (08:00)
[2022-04-20] MEDS: Clindamycin 600 MG/50 ML 600 MG/50 ML IV.SOLN IVPB SCH ×2 (08:41→18:14)
[2022-04-20] MEDS: Piperacillin/Tazobactam 3.375 GM in 0.9 % Sodium Chloride Mini Bag 100 ML IVPB SCH ×2 (08:41→18:13)
[2022-04-20 09:19] LABS: Estimated Average Glucose 220 mg/dl; Hemoglobin A1C 9.3 %
[2022-04-20] MEDS: Vancomycin 1,250 MG/262.5 ML IV.SOLN IVPB SCH ×2 (09:45→22:12)
[2022-04-20] MEDS ORDERED: Morphine Sulfate 2 MG/ML SYRINGE IVP PRN (10:16)
[2022-04-20] MEDS: *HR* OxyCODONE Immed Rel 5 MG TABLET PO PRN ×2 (11:42→18:11)
[2022-04-20] MEDS: Aspirin 81 MG TAB.CHEW PO SCH (18:11)
[2022-04-20] MEDS: Insulin LISPRO 300 UNITS/3 ML VIAL SUBQ SCH ×3 (18:12→19:51)
[2022-04-20] MEDS: Gabapentin 300 MG CAPSULE PO SCH (19:47)
[2022-04-20] MEDS: Lactobacillus 1 EACH CAP.SPRINK PO SCH (19:47)
[2022-04-21] MEDS: Clindamycin 600 MG/50 ML 600 MG/50 ML IV.SOLN IVPB SCH ×2 (00:13→08:08)
[2022-04-21] MEDS: Piperacillin/Tazobactam 3.375 GM in 0.9 % Sodium Chloride Mini Bag 100 ML IVPB SCH ×3 (00:14→17:18)
[2022-04-21] MEDS: *HR* OxyCODONE Immed Rel 5 MG TABLET PO PRN ×3 (00:23→20:02)
[2022-04-21 02:24] LABS: Basophils % 0.6 %; Eosinophils # 0.2 K/mcL (0.0-0.6); Eosinophils % 2.3 %; Hematocrit 36.6 % (37.5-50.1); Immature Granulocytes % 0.3 % (0-4); Lymphocytes # 1.5 K/mcL (0.6-4.6); Mean Corpuscular HGB Conc 33.1 g/dL (31.6-35.5); Mean Corpuscular Hemoglobin 30.4 pg (28.0-33.3); Mean Platelet Volume 9.2 fL (9.4-12.4); Monocytes # 0.7 K/mcL (0.0-1.3); Monocytes % 9.8 %; Neutrophils # 4.6 K/mcL (1.6-8.9); Platelet Count 185 K/mcL (140-400); Red Blood Count 3.98 M/mcL (4.19-5.50); Red Cell Distribution Width 13.3 % (11.5-14.5); White Blood Count 6.9 K/mcL (4.3-11.1)
[2022-04-21 02:26] LABS: Hemoglobin 12.1 g/dL (12.9-16.9)
[2022-04-21 02:43] LABS: Magnesium 1.8 mg/dL (1.6-2.6); Potassium 3.8 mEq/L (3.5-5.1)
[2022-04-21] MEDS: *HR* HYDROcodone/Acet 5/325 mg TABLET PO PRN ×2 (05:18→12:29)
[2022-04-21] MEDS: *HR* Heparin 5,000 UNIT/ML VIAL SQ SCH ×3 (05:19→22:44)
[2022-04-21] MEDS: amLODIPine 5 MG TABLET PO SCH (08:06)
[2022-04-21] MEDS: Lactobacillus 1 EACH CAP.SPRINK PO SCH ×2 (08:07→20:03)
[2022-04-21] MEDS: Gabapentin 300 MG CAPSULE PO SCH ×3 (08:07→20:03)
[2022-04-21] MEDS: Aspirin 81 MG TAB.CHEW PO SCH (08:07)
[2022-04-21] MEDS: Nicotine 14 MG PATCH.TD24 TD SCH (08:08)
[2022-04-21] MEDS: Insulin LISPRO 300 UNITS/3 ML VIAL SUBQ SCH ×4 (08:11→22:45)
[2022-04-21] MEDS ORDERED: Vancomycin 1,750 MG/517.5 ML IV.SOLN IVPB SCH (12:30)
[2022-04-21] MEDS: Vancomycin 1,500 MG/265 ML IV.SOLN IVPB SCH (13:42)
[2022-04-22] MEDS: Piperacillin/Tazobactam 3.375 GM in 0.9 % Sodium Chloride Mini Bag 100 ML IVPB SCH ×3 (00:13→15:31)
[2022-04-22] MEDS: Vancomycin 1,500 MG/265 ML IV.SOLN IVPB SCH (00:14)
[2022-04-22] MEDS: *HR* OxyCODONE Immed Rel 5 MG TABLET PO PRN ×4 (02:04→22:17)
[2022-04-22 05:03] LABS: Basophils % 0.5 %; Eosinophils # 0.3 K/mcL (0.0-0.6); Eosinophils % 5.7 %; Hematocrit 33.8 % (37.5-50.1); Hemoglobin 11.2 g/dL (12.9-16.9); Immature Granulocytes % 0.2 % (0-4); Lymphocytes # 1.2 K/mcL (0.6-4.6); Lymphocytes % 19.8 %; Mean Corpuscular HGB Conc 33.1 g/dL (31.6-35.5); Mean Corpuscular Hemoglobin 30.3 pg (28.0-33.3); Mean Corpuscular Volume 91.4 fL (83.0-100.0); Mean Platelet Volume 9.4 fL (9.4-12.4); Monocytes # 0.6 K/mcL (0.0-1.3); Monocytes % 9.2 %; Neutrophils # 3.9 K/mcL (1.6-8.9); Platelet Count 188 K/mcL (140-400); Red Cell Distribution Width 13.4 % (11.5-14.5); Segmented Neutrophils % 64.6 %
[2022-04-22 05:11] LABS: BUN/Creatinine Ratio 14 (6-26); Blood Urea Nitrogen 12 mg/dL (8-23); Calcium 7.9 mg/dL (8.6-10.3); Carbon Dioxide 26 mEq/L (23-29); Chloride 101 mEq/L (98-107); Glucose 302 mg/dL (70-105); Magnesium 1.8 mg/dL (1.6-2.6); Osmolality,Calculated 287 (280-300); Potassium 4.3 mEq/L (3.5-5.1); Sodium 133 mEq/L (136-145)
[2022-04-22] MEDS: *HR* Heparin 5,000 UNIT/ML VIAL SQ SCH ×2 (05:39→22:17)
[2022-04-22] MEDS: Lactobacillus 1 EACH CAP.SPRINK PO SCH ×2 (08:01→20:15)
[2022-04-22] MEDS: amLODIPine 5 MG TABLET PO SCH (08:01)
[2022-04-22] MEDS: Gabapentin 300 MG CAPSULE PO SCH ×3 (08:02→20:15)
[2022-04-22] MEDS: Aspirin 81 MG TAB.CHEW PO SCH (08:02)
[2022-04-22] MEDS: Insulin LISPRO 300 UNITS/3 ML VIAL SUBQ SCH ×3 (08:03→17:34)
[2022-04-22] MEDS: Nicotine 14 MG PATCH.TD24 TD SCH (08:17)
[2022-04-22] MEDS ORDERED: Insulin DETEMIR 100 UNIT/ML X5UNITS SUBQ SCH (09:00)
[2022-04-22] MEDS ORDERED: Lidocaine -MPF 2% 5 ML VIAL ONE (11:40)
[2022-04-22] MEDS ORDERED: *HR* FentaNYL (PF) 100 MCG/2 ML VIAL ONE (11:40)
[2022-04-22] MEDS ORDERED: *HR* Midazolam HCl 2 MG/2 ML VIAL ONE (11:40)
[2022-04-22] MEDS ORDERED: Bupivacaine/Clonidine Syringe 20 ML, Syringe LUER-LOK 1 EACH TP ONE (12:15)
[2022-04-22] MEDS ORDERED: D5% in Water 1,000 ML IVC PRN (14:30)
[2022-04-22] MEDS ORDERED: Naloxone 0.4 MG/ML INJ IVP PRN (14:30)
[2022-04-22] MEDS ORDERED: Ondansetron 4 MG/2 ML VIAL IVP PRN (14:30)
[2022-04-22] MEDS ORDERED: *HR* Dextrose 50 % in Water (Syg) 50 ML SYRINGE IVP PRN (14:30)
[2022-04-22] MEDS ORDERED: Nitroglycerin 0.4 MG TAB.SUBL SL PRN (14:30)
[2022-04-22] MEDS ORDERED: Acetaminophen 325 MG TABLET PO PRN (14:30)
[2022-04-22] MEDS ORDERED: Dextrose Gel 15 GM/37.5 ML TUBE PO PRN ×2 (14:30)
[2022-04-22] MEDS: Insulin DETEMIR 100 UNIT/ML X5UNITS SUBQ SCH (20:15)
[2022-04-22] MEDS: Morphine Sulfate 2 MG/ML SYRINGE IVP PRN (20:18)
[2022-04-23] MEDS ORDERED: Vancomycin 1,500 MG/265 ML IV.SOLN IVPB SCH (00:30)
[2022-04-23 01:07] LABS: Basophils % 0.3 %; Eosinophils # 0.4 K/mcL (0.0-0.6); Eosinophils % 7.5 %; Hematocrit 32.3 % (37.5-50.1); Hemoglobin 11.2 g/dL (12.9-16.9); Immature Granulocytes % 0.3 % (0-4); Lymphocytes # 1.3 K/mcL (0.6-4.6); Lymphocytes % 21.8 %; Mean Corpuscular HGB Conc 34.7 g/dL (31.6-35.5); Mean Corpuscular Hemoglobin 31.5 pg (28.0-33.3); Mean Corpuscular Volume 90.7 fL (83.0-100.0); Monocytes # 0.6 K/mcL (0.0-1.3); Monocytes % 9.7 %; Neutrophils # 3.5 K/mcL (1.6-8.9); Platelet Count 168 K/mcL (140-400); Red Blood Count 3.56 M/mcL (4.19-5.50); Red Cell Distribution Width 13.3 % (11.5-14.5); Segmented Neutrophils % 60.4 %; White Blood Count 5.9 K/mcL (4.3-11.1)
[2022-04-23] MEDS: Piperacillin/Tazobactam 3.375 GM in 0.9 % Sodium Chloride Mini Bag 100 ML IVPB SCH ×4 (01:10→23:50)
[2022-04-23] MEDS: Morphine Sulfate 2 MG/ML SYRINGE IVP PRN ×3 (01:13→23:50)
[2022-04-23 01:26] LABS: BUN/Creatinine Ratio 14 (6-26); Blood Urea Nitrogen 11 mg/dL (8-23); Calcium 7.8 mg/dL (8.6-10.3); Carbon Dioxide 27 mEq/L (23-29); Chloride 103 mEq/L (98-107); Glucose 196 mg/dL (70-105); Magnesium 1.8 mg/dL (1.6-2.6); Osmolality,Calculated 285 (280-300); Potassium 4.1 mEq/L (3.5-5.1); Sodium 135 mEq/L (136-145)
[2022-04-23] MEDS: Vancomycin 1,250 MG/262.5 ML IV.SOLN IVPB SCH ×3 (02:09→18:17)
[2022-04-23] MEDS: *HR* Heparin 5,000 UNIT/ML VIAL SQ SCH ×3 (05:36→21:50)
[2022-04-23] MEDS: *HR* OxyCODONE Immed Rel 5 MG TABLET PO PRN ×3 (05:42→19:56)
[2022-04-23] MEDS: Gabapentin 300 MG CAPSULE PO SCH ×3 (07:55→19:55)
[2022-04-23] MEDS: amLODIPine 5 MG TABLET PO SCH (07:55)
[2022-04-23] MEDS: Lactobacillus 1 EACH CAP.SPRINK PO SCH ×2 (07:57→19:55)
[2022-04-23] MEDS: Nicotine 14 MG PATCH.TD24 TD SCH (07:57)
[2022-04-23] MEDS: Aspirin 81 MG TAB.CHEW PO SCH (07:57)
[2022-04-23] MEDS: Insulin LISPRO 300 UNITS/3 ML VIAL SUBQ SCH ×3 (08:00→16:53)
[2022-04-23] MEDS: Insulin DETEMIR 100 UNIT/ML X5UNITS SUBQ SCH ×2 (09:00→19:55)
[2022-04-23] MEDS: *HR* HYDROcodone/Acet 5/325 mg TABLET PO PRN (17:00)
[2022-04-24] MEDS: Vancomycin 1,250 MG/262.5 ML IV.SOLN IVPB SCH ×3 (01:19→18:20)
[2022-04-24 05:03] LABS: BUN/Creatinine Ratio 12 (6-26); Blood Urea Nitrogen 9 mg/dL (8-23); Calcium 7.6 mg/dL (8.6-10.3); Carbon Dioxide 27 mEq/L (23-29); Chloride 105 mEq/L (98-107); Glucose 150 mg/dL (70-105); Magnesium 1.8 mg/dL (1.6-2.6); Osmolality,Calculated 290 (280-300); Potassium 3.7 mEq/L (3.5-5.1); Sodium 139 mEq/L (136-145)
[2022-04-24 05:09] LABS: Basophils % 0.4 %; Eosinophils # 0.3 K/mcL (0.0-0.6); Eosinophils % 6.2 %; Hematocrit 31.8 % (37.5-50.1); Hemoglobin 10.7 g/dL (12.9-16.9); Immature Granulocytes % 0.2 % (0-4); Lymphocytes # 1.5 K/mcL (0.6-4.6); Lymphocytes % 27.3 %; Mean Corpuscular HGB Conc 33.6 g/dL (31.6-35.5); Mean Corpuscular Hemoglobin 30.6 pg (28.0-33.3); Mean Corpuscular Volume 90.9 fL (83.0-100.0); Mean Platelet Volume 9.3 fL (9.4-12.4); Monocytes # 0.6 K/mcL (0.0-1.3); Monocytes % 10.5 %; Platelet Count 180 K/mcL (140-400); Red Cell Distribution Width 13.1 % (11.5-14.5); Segmented Neutrophils % 55.4 %; White Blood Count 5.3 K/mcL (4.3-11.1)
[2022-04-24] MEDS: *HR* Heparin 5,000 UNIT/ML VIAL SQ SCH ×3 (06:21→20:08)
[2022-04-24] MEDS: *HR* OxyCODONE Immed Rel 5 MG TABLET PO PRN ×2 (06:22→12:27)
[2022-04-24] MEDS: Insulin LISPRO 300 UNITS/3 ML VIAL SUBQ SCH ×3 (08:27→17:06)
[2022-04-24] MEDS: Nicotine 14 MG PATCH.TD24 TD SCH (08:28)
[2022-04-24] MEDS: Lactobacillus 1 EACH CAP.SPRINK PO SCH ×2 (08:29→20:07)
[2022-04-24] MEDS: Piperacillin/Tazobactam 3.375 GM in 0.9 % Sodium Chloride Mini Bag 100 ML IVPB SCH ×3 (08:29→23:54)
[2022-04-24] MEDS: Aspirin 81 MG TAB.CHEW PO SCH (08:29)
[2022-04-24] MEDS: Gabapentin 300 MG CAPSULE PO SCH ×3 (08:30→20:07)
[2022-04-24] MEDS: amLODIPine 5 MG TABLET PO SCH (08:30)
[2022-04-24] MEDS: *HR* HYDROcodone/Acet 5/325 mg TABLET PO PRN (08:31)
[2022-04-24] MEDS: Insulin DETEMIR 100 UNIT/ML X5UNITS SUBQ SCH ×2 (10:19→20:08)
[2022-04-24] MEDS: Morphine Sulfate 2 MG/ML SYRINGE IVP PRN (14:07)
[2022-04-25] MEDS: Vancomycin 1,250 MG/262.5 ML IV.SOLN IVPB SCH ×3 (02:07→17:20)
[2022-04-25] MEDS: *HR* Heparin 5,000 UNIT/ML VIAL SQ SCH ×3 (08:10→20:19)
[2022-04-25] MEDS: Nicotine 14 MG PATCH.TD24 TD SCH (08:44)
[2022-04-25] MEDS: *HR* OxyCODONE Immed Rel 5 MG TABLET PO PRN ×2 (08:44→23:31)
[2022-04-25] MEDS: Gabapentin 300 MG CAPSULE PO SCH ×3 (08:44→20:18)
[2022-04-25] MEDS: Insulin DETEMIR 100 UNIT/ML X5UNITS SUBQ SCH ×2 (08:44→20:19)
[2022-04-25] MEDS: Insulin LISPRO 300 UNITS/3 ML VIAL SUBQ SCH ×3 (08:45→17:19)
[2022-04-25] MEDS: Aspirin 81 MG TAB.CHEW PO SCH (08:45)
[2022-04-25] MEDS: Lactobacillus 1 EACH CAP.SPRINK PO SCH ×2 (08:45→20:18)
[2022-04-25] MEDS: Piperacillin/Tazobactam 3.375 GM in 0.9 % Sodium Chloride Mini Bag 100 ML IVPB SCH ×3 (08:45→23:17)
[2022-04-25] MEDS: amLODIPine 5 MG TABLET PO SCH (08:45)
[2022-04-25] MEDS: Morphine Sulfate 2 MG/ML SYRINGE IVP PRN ×2 (11:33→17:27)
[2022-04-25 14:06] LABS: Basophils % 0.6 %; Eosinophils # 0.4 K/mcL (0.0-0.6); Eosinophils % 6.5 %; Hematocrit 34.7 % (37.5-50.1); Hemoglobin 11.7 g/dL (12.9-16.9); Immature Granulocytes % 0.6 % (0-4); Lymphocytes # 1.4 K/mcL (0.6-4.6); Lymphocytes % 20.3 %; Mean Corpuscular HGB Conc 33.7 g/dL (31.6-35.5); Mean Corpuscular Hemoglobin 30.2 pg (28.0-33.3); Mean Corpuscular Volume 89.7 fL (83.0-100.0); Mean Platelet Volume 9.3 fL (9.4-12.4); Monocytes # 0.6 K/mcL (0.0-1.3); Monocytes % 8.1 %; Neutrophils # 4.3 K/mcL (1.6-8.9); Platelet Count 210 K/mcL (140-400); Red Blood Count 3.87 M/mcL (4.19-5.50); Red Cell Distribution Width 13.2 % (11.5-14.5); Segmented Neutrophils % 63.9 %; White Blood Count 6.8 K/mcL (4.3-11.1)
[2022-04-25 14:16] LABS: BUN/Creatinine Ratio 14 (6-26); Blood Urea Nitrogen 10 mg/dL (8-23); Carbon Dioxide 29 mEq/L (23-29); Chloride 102 mEq/L (98-107); Sodium 135 mEq/L (136-145)
[2022-04-25 14:17] LABS: Calcium 8.3 mg/dL (8.6-10.3); Glucose 243 mg/dL (70-105); Magnesium 1.9 mg/dL (1.6-2.6); Osmolality,Calculated 287 (280-300)
[2022-04-26] MEDS: Vancomycin 1,250 MG/262.5 ML IV.SOLN IVPB SCH ×2 (02:16→11:32)
[2022-04-26] MEDS: *HR* HYDROcodone/Acet 5/325 mg TABLET PO PRN ×2 (04:10→13:26)
[2022-04-26] MEDS: *HR* Heparin 5,000 UNIT/ML VIAL SQ SCH ×2 (04:11→14:18)
[2022-04-26 05:17] LABS: Basophils % 0.6 %; Eosinophils # 0.5 K/mcL (0.0-0.6); Eosinophils % 7.1 %; Hematocrit 33.2 % (37.5-50.1); Hemoglobin 11.2 g/dL (12.9-16.9); Immature Granulocytes % 0.9 % (0-4); Lymphocytes # 1.9 K/mcL (0.6-4.6); Lymphocytes % 28.6 %; Mean Corpuscular HGB Conc 33.7 g/dL (31.6-35.5); Mean Corpuscular Hemoglobin 30.4 pg (28.0-33.3); Mean Corpuscular Volume 90.2 fL (83.0-100.0); Mean Platelet Volume 8.9 fL (9.4-12.4); Monocytes # 0.5 K/mcL (0.0-1.3); Monocytes % 7.1 %; Neutrophils # 3.6 K/mcL (1.6-8.9); Platelet Count 226 K/mcL (140-400); Red Blood Count 3.68 M/mcL (4.19-5.50); Red Cell Distribution Width 13.2 % (11.5-14.5); Segmented Neutrophils % 55.7 %; White Blood Count 6.5 K/mcL (4.3-11.1)
[2022-04-26 05:37] LABS: BUN/Creatinine Ratio 15 (6-26); Blood Urea Nitrogen 12 mg/dL (8-23); Calcium 8.2 mg/dL (8.6-10.3); Carbon Dioxide 29 mEq/L (23-29); Chloride 103 mEq/L (98-107); Glucose 178 mg/dL (70-105); Magnesium 1.9 mg/dL (1.6-2.6); Osmolality,Calculated 286 (280-300); Potassium 4.1 mEq/L (3.5-5.1); Sodium 136 mEq/L (136-145)
[2022-04-26] MEDS: Insulin LISPRO 300 UNITS/3 ML VIAL SUBQ SCH ×3 (09:01→17:12)
[2022-04-26] MEDS: Piperacillin/Tazobactam 3.375 GM in 0.9 % Sodium Chloride Mini Bag 100 ML IVPB SCH (09:03)
[2022-04-26] MEDS: Lactobacillus 1 EACH CAP.SPRINK PO SCH (09:04)
[2022-04-26] MEDS: Aspirin 81 MG TAB.CHEW PO SCH (09:04)
[2022-04-26] MEDS: Nicotine 14 MG PATCH.TD24 TD SCH (09:04)
[2022-04-26] MEDS: Gabapentin 300 MG CAPSULE PO SCH ×2 (09:06→14:18)
[2022-04-26] MEDS: amLODIPine 5 MG TABLET PO SCH (09:06)
[2022-04-26] MEDS: Insulin DETEMIR 100 UNIT/ML X5UNITS SUBQ SCH (09:06)
[2022-04-26] MEDS: *HR* OxyCODONE Immed Rel 5 MG TABLET PO PRN (09:13)
[2022-04-26 16:10] VITALS: BP 159/74; PULSE 75; TEMP 97.2; O2SAT 97
[2022-04-26] MEDS ORDERED: Sulfamethoxazole/Trimeth DS 1 EACH TABLET PO SCH (21:00)
[2022-04-26] MEDS ORDERED: Doxycycline 100 MG CAPSULE PO SCH (21:00)
== END 2022-04-26 22:00 | disposition home health service (06) | DRG 853 ==
LOC: 4WAOSI 18:56 → EMEROOARM 18:56 → SUATTDRO 04-20 04:37 → 4WAOSI 04-20 05:38
PROVIDERS: ADMIT Internal Medicine; ATTEND Pharmacist